=== PATIENT | female | born 1970 | race Caucasian/White ===

== ENCOUNTER → 2020-12-08 14:24 | Outpatient (CLI) | payer BC, SELFPAY ==
--- NOTE | ~2020-12-08 | XR_ITS ---
EXAMINATION: XR knee RT min 4V DATE: 12/09/2020 08:38 INDICATION: Right knee pain. TECHNIQUE: 4 views of right knee standing were obtained. COMPARISON: None. FINDINGS: There is varus angulation at the knee. No fracture. There is moderate osteoarthritis of med ial and patellofemoral compartments and mild osteoarthritis of lateral compartment. There is chondroc alcinosis of the menisci. No knee joint effusion. IMPRESSION: 1. Moderate right knee osteoarthritis. Reviewed, dictated and finalized at location A.
--- NOTE | ~2020-12-08 | XR_ITS ---
EXAMINATION: XR knee LT min 4V DATE: 12/09/2020 08:38 INDICATION: Left knee pain. TECHNIQUE: 4 views of left knee standing were obtained. COMPARISON: Left knee radiographs 09/01/2008 FINDINGS: There is varus angulation at the knee. No fracture. There is moderate osteoarthritis of med ial and patellofemoral compartments and mild osteoarthritis of lateral compartment. There is a small knee joint effusion. IMPRESSION: 1. Moderate left knee osteoarthritis. 2. Small left knee joint effusion. Reviewed, dictated and finalized at location A.
== END ==
PROVIDERS: PCP Physician Assistant; Visit Provider Physician Assistant
DX: M17.0 Bilateral primary osteoarthritis of knee (principal); M25.462 Effusion, left knee
CPT/HCPCS: 73564

== ENCOUNTER 2023-10-24 15:35 | Outpatient (CLI) | payer BC, SELFPAY ==
--- NOTE | 2023-10-24 15:30 | ECG_ITS ---
[facility] [address] Test Date: 2023-10-24 Pat Name: Mervat Cedeno Department: Room: Gender: F Network Analyst: Kumar : 1970 Requested By: Carlos Alberto Catrer Order Number: [id number] Nancy MD: Dexter Pack D.O. Measurements Intervals [place] Rate: 74 P: 23 GA: 160 QRS: 58 QRSD: 86 T: 31 QT: 399 QTc: 444 Interpretive Statements SINUS RHYTHM MINIMAL Q WAVES- INFERIOR LEADS MODERATE ST DEPRESSION [0.05+ mV ST DEPRESSION] BORDELRINE ECG No previous ECG available for comparison Electronically Signed On 10-25-2023 08:55:05 CDT by Dexter Pack D.O.
[2023-10-24 16:13] LABS: Anion Gap 4 mmol/L (4-12); Blood Urea Nitrogen 19 mg/dL (7-17); Calcium 9.8 mg/dL (8.4-10.2); Carbon Dioxide 35 mmol/L (22-30); Chloride 101 mmol/L (98-107); Estimated Glomerular Filt Rate > 60; Glucose 104 mg/dL (65-110); Potassium 3.1 mmol/L (3.4-5.0); Sodium 140 mmol/L (137-145)
== END 2023-10-24 15:36 | disposition home or self-care (01) ==
PROVIDERS: Anesthesiology; PCP Family Medicine; Visit Provider Obstetrics & Gynecology
DX: Z01.818 Encounter for other preprocedural examination (principal); I10 Essential (primary) hypertension; N95.0 Postmenopausal bleeding; T50.2X5A Adverse effect of carbonic-anhydrase inhibitors, benzothiadiazides and other diuretics, initial encounter
CPT/HCPCS: 36415; 80048; 86850; 86900; 86901; 93005

== ENCOUNTER 2023-10-26 01:30 | Day surgery (SDC) | payer BC, SELFPAY ==
[2023-10-18 14:41] VITALS: BMI 40.7
--- NOTE | 2023-10-18 14:49 | PC.NURSE ---
Report to the Outpatient Waiting Room, entrance under the green pavilion located off [facility], at time 07:30am on date 10-26-23. Planned Procedure Time: 09:30am. Time changes happen often and if your time is changed the preop area will call you the afternoon before. - You and your visitor will be asked to self-screen and do not enter if you have any COVID symptoms. - A mask is optional within the hospital at this time. Patients may have clear liquids (water, carbonated beverages, clear teas, apple juice) until 3 hours prior to surgery (06:30am) with a maximum of 20 ounces. - No food from midnight until time of surgery Take the following medications with a SIP of water the morning of surgery: levothyroxine, paroxetine DO NOT STOP ANY OF YOUR OTHER PRESCRIPTION MEDICATIONS PRIOR TO SURGERY ?EXCEPT THE FOLLOWING Medications to discontinue per physician vitamin Date to take last dose 10-22-23 Please no make-up, nail uzbek, hairspray, perfume, deodorant, or body powder the day of surgery. No jewelry (including any body piercings) or valuables the day of surgery, leave them at home. Please take a shower or bath the night before, or the morning of, surgery with an antibacterial soap. Wear comfortable, loose fitting clothing. - Jewelry must be removed prior to entering the operating room. Rings and piercings that are not removed may be cut off. - The hospital will not accept responsibility for valuables. - Please leave all valuables, including medications, at home the day of surgery. If you are going home after surgery, a licensed vending route driver must drive you home. - NO public transportation without another adult if you receive anesthesia. - We recommend that an adult stay with you for 24 hours following discharge. - We also recommend that you do not drive, make important decision, drink alcoholic beverages, or take any drugs that were not prescribed by your health care provider for at least 24 hours after your discharge time. Follow any additional instructions given to you from your surgeon. If you or anyone in your household have experienced Covid symptoms in the past week, please notify your surgeon or the nurse liaison at the phone number below for possible testing. Telephone instructions given to PATIENT and asked if any additional questions and then verbalized understanding. Patient advised to call surgeon office or pre surgery nurse liaison [phone] if any additional questions.
[2023-10-26] VITALS (15 sets, daily range): BP systolic 101–152; BP diastolic 64–85; PULSE 66–91; RESP 10–18; TEMP 36.4–37.2; O2SAT 93–99
--- NOTE | 2023-10-26 07:49 | WPDANESEPPF ---
Anes - Initial Pre Proc Eval Procedure: Operation Date: 10/26/23 09:30 Proposed Procedures p Laparoscopic Total Hysterectomy with Bilateral Salpingo-oophorectomy - North Viera MD Date/Time: 10/26/23 07:49 Surgeon: North Viera MD Pre Op Diagnosis: Post Menopausal Bleeding Patient Data Age: 53 Gender: F Height: 1.7 m Weight: 116.3 kg Allergies Allergy/AdvReac Type Severity Reaction Status Date / Time No Known Allergies Allergy Unknown Verified 10/26/23 07:46 Home Medications Medication Instructions Recorded Confirmed Type chlorthalidone 25 mg tablet 25 mg PO DAILY #90 tabs 06/20/23 10/26/23 Rx losartan 50 mg tablet 50 mg PO DAILY #30 tabs 06/20/23 10/26/23 Rx levothyroxine 125 mcg tablet See Rx Instructions .Route 10/10/23 10/26/23 Rx .COMPLEX #90 tabs paroxetine HCl 10 mg tablet See Rx Instructions .Route 10/15/23 10/26/23 Rx .COMPLEX #90 tabs multivit with minerals-iron 18 1 tablet PO DAILY 10/18/23 10/26/23 History mg-folic ac 400 mcg-vit K 25 mcg tablet (Adults Multivitamin) celecoxib 200 mg capsule See Rx Instructions .Route 10/25/23 Rx .COMPLEX #90 caps Patient hx anesthesia problems: none Family hx anesthesia problems: none Results Review: All pre-operative results and documents have been reviewed as part of the pre-operative evaluation. [facility] Past Medical History Medical History Depression Graves' disease in remission reactive iodine treatment 1992 Hypertension Hypothyroidism Osteoarthritis Surgical History Surgical History History of cholecystectomy 11/2017 History of laparoscopy 2002 Family History Family History Mother Breast cancer Endometrial cancer Father Heart disease Bladder cancer Grandparent Acute myocardial infarction Diabetes mellitus Heart disease Social History Social History Smoking status: Never smoker Second hand tobacco smoke exposure: No Alcohol intake: never Substance use: never Substance use type: does not use Do You Feel Safe in your Home?: Yes Lack of Transportation: No Lack of Food: Never True Current Housing: I Have Housing Concerned About Future Housing: No Difficulty Paying Gas/Electric Bills: No Difficulty Paying for Meds: No Currently Unemployed: No Education: Master's Degree or Higher Difficulty w/ Childcare or Family Care: No Living arrangements: with family Occupation/Education: occupation Gender identity (if verbalized by the patient): Female Sexual Orientation (if Verbalized by the Patient): Straight or Heterosexual Spiritual care concerns: No Anes - Eval Final PreProcedure Day of Procedure 10/26/23 07:49 Patient weight: morbidly obese Heart: regular rate and rhythm Lungs: clear to auscultation Airway: Mallampati scale class II Neurological: alert and oriented Last oral intake: >/= 8 hours ASA classification: III Emergent: no Anesthetic plan: proceed Anesthesia type and monitoring: general ETT and standard monitoring Results Review: All pre-operative results and documents have been reviewed as part of the pre-operative evaluation. Informed Consent: The patient's anesthetic plan and its attendant risks and benefits were discussed with the patient/family/POA. Questions were solicited and answers provided to the satisfaction of the patient/family/POA.
[2023-10-26] MEDS: KETOROLAC 15 MG/ML VIAL (*BKC) IV PUSH (08:02)
[2023-10-26] MEDS: ACETAMINOPHEN 500 MG TABLET 1000 MG PO (08:02)
[2023-10-26] MEDS: LACTATED RINGERS 1,000 ML 30 ML IV CONT ×2 (08:05→12:40)
--- NOTE | 2023-10-26 09:41 | PM.IMHP ---
H&P: HPI History of Present Illness Date/Time: 10/26/23 09:41 Chief Complaint: Postmenopausal bleeding Narrative: Patient is a 53 year old female with postmenopausal bleeding and R ovarian cyst who presents for total laparoscopic hysterectomy and bilateral salpingo-oopherectomy. She has had two episodes of postmenopausal bleeding with normal EMB. Active surveillance vs surgical management discussed with patient, who desires to proceed with TLH BSO. R/b/a of procedure discussed. She was also found to have a stalbe R ovarian cyst that will be removed at time of surgery. Denies abdominal pain, chest pain, nausea or vomiting. Review of Systems Review of Systems: All systems reviewed & are unremarkable except as noted in HPI and below PMFSH Past Medical History Medical History Depression Graves' disease in remission reactive iodine treatment 1992 Hypertension Hypothyroidism Osteoarthritis Surgical History Surgical History History of cholecystectomy 11/2017 History of laparoscopy 2002 Family History Family History Mother Breast cancer Endometrial cancer Father Heart disease Bladder cancer Grandparent Acute myocardial infarction Diabetes mellitus Heart disease Social History Social History Smoking status: Never smoker Second hand tobacco smoke exposure: No Alcohol intake: never Substance use: never Substance use type: does not use Do You Feel Safe in your Home?: Yes Lack of Transportation: No Lack of Food: Never True Current Housing: I Have Housing Concerned About Future Housing: No Difficulty Paying Gas/Electric Bills: No Difficulty Paying for Meds: No Currently Unemployed: No Education: Master's Degree or Higher Difficulty w/ Childcare or Family Care: No Living arrangements: with family Occupation/Education: occupation Gender identity (if verbalized by the patient): Female Sexual Orientation (if Verbalized by the Patient): Straight or Heterosexual Spiritual care concerns: No Meds Home Medications and Allergies Home Medications Medication Instructions Recorded Confirmed Type chlorthalidone 25 mg tablet 25 mg PO DAILY #90 tabs 06/20/23 10/26/23 Rx losartan 50 mg tablet 50 mg PO DAILY #30 tabs 06/20/23 10/26/23 Rx levothyroxine 125 mcg tablet See Rx Instructions .Route 10/10/23 10/26/23 Rx .COMPLEX #90 tabs paroxetine HCl 10 mg tablet See Rx Instructions .Route 10/15/23 10/26/23 Rx .COMPLEX #90 tabs multivit with minerals-iron 18 1 tablet PO DAILY 10/18/23 10/26/23 History mg-folic ac 400 mcg-vit K 25 mcg tablet (Adults Multivitamin) celecoxib 200 mg capsule See Rx Instructions .Route 10/25/23 Rx .COMPLEX #90 caps Allergies Allergy/AdvReac Type Severity Reaction Status Date / Time No Known Allergies Allergy Unknown Verified 10/26/23 07:46 Vital Signs Vital Signs - 24 hr 10/26/23 07:49 Temperature 97.9 F Pulse Rate 85 Respiratory Rate 18 Blood Pressure 152/85 H Pulse Oximetry 96 Oxygen Delivery Room Air Assessment and Plan Assessment and plan (1) Postmenopausal bleeding: Code(s): N95.0 - Postmenopausal bleeding Status: Acute Assessment and Plan: ?EMC 5mm, unchanged from prior exam - 1 episode of bleeding after 1 year of amenorrhea, then additional episode in 06/2023 - EMB wnl in 04/2023 - discussed repeat sampling due to additional bleeding episode, however patient desires hysterectomy due to family hx of endometrial and ovarian cancer - r/b/a of laparoscopic hysterectomy discussed with patient. she desires to move forward with surgery (2) Ovarian cyst: Code(s): N83.209 - Unspecified ovarian cyst, unspecified side Status: Acute Assessment and Plan: - 7-8cm anechoic cy
--- NOTE | 2023-10-26 09:44 | WPDHPUPDATE1 ---
History and Physical Update Update Date/Time: 10/26/23 09:44 History and Physical has been reviewed, including an updated exam of the patient. There are NO changes in the patient's condition. Risks, benefits, and alternatives have been discussed and questions answered. Patient agrees to proceed with procedure.
[2023-10-26] MEDS: ceFAZolin 2 GM/D5W 50 ML 2 GM/50 ML BAG IVPB (09:50)
[2023-10-26] MEDS: BUPIVACAINE/EPINEPHRINE 0.5% 50 ML VIAL 30 ML INFILTRATE (10:56)
--- NOTE | 2023-10-26 12:29 | W.PM.PROC2 ---
Procedure Note - Detailed Date of Procedure 10/26/23 Pre-op Diagnosis Post Menopausal Bleeding Post-op Diagnosis Same Procedure Performed Total laparoscopic hysterectomy with bilateral salpingoopherectomy and cystoscopy Surgeon North Viera MD Anesthesia General and Local Indications postmenopausal bleeding and right ovarian cyst Findings 6 week sized uterus; normal appearing left ovary, 9cm right ovarian cyst; normal appearing fallopian tubes; normal appearing appendix Description of Procedure The patient was taken to the operating room with IV fluids infusing and placed in dorsal supine position. She was given general anesthesia by the anesthesiologist without difficulty. She was then repositioned in the dorsal lithotomy position and prepped and draped in the usual sterile manner. A Martinez catheter was placed in the patient's bladder. The Steffany uterine manipulator was place in the cervix and the vaginal balloon was insufflated. Legs were returned to physiologic position. An oral gastric tube was placed in the stomach to suction any contents. A small incision was made in the abdomen in the mid clavicular line below the left costal margin. A 5mm trocar was placed into Way's point under direct vision. Intraabdominal placement was confirmed with an opening pressure of 6mm. After adequate visualization two 5 mm ports were placed lateral to the inferior epigastic vessels on the left. The [place] Ligasure was used throughout the case. After evaluating the pathology the hysterectomy was begun by coagulating and cutting the uteroovarian pedicles and the round ligaments. The bladder flap was created the bladder from the lower uterine segment.The uterine vessels were skeletonized bilaterally,coagulated and then cut. The Ligasure L hook was used to create the colpotomy anteriorly and continued around the circumference of the cervix. The uterus was delivered vaginally. The bilateral ureters were visualized peristalsing on the pelvic sidewall. The left IP ligament was coagulated and cauterized. The ovary and fallopian tube on the left side were detached from the mesosalpinx and delivered vaginally. The right IP was grasped and in a similar way, the right ovary, tube and ovarian cyst were detached. A specimen bag was delivered into the abdomen from the vaginal and the right adnexa was removed in the bag without spillage of the cyst. The pedicles were noted to be hemostatic. A small disruption of the peritoneum under the sigmoid colon was noted, likely occurring during the delivery of the enlarged ovary; the bed was noted to be hemostatic. After adequate hemostasis the vaginal cuff was closed with V-loc suture in a running fashion. Surgicell powder was placed under the sigmoid and along the vaginal cuff. Methylene blue dye was injected intravenously, cystoscopy was performed. Both ureters showed normal flow and there was no damage to the bladder. The abdominal cavity was lavaged with normal saline; there was no active bleeding. Instruments were removed under direct vision and as much CO2 was removed as possible. The abdomen was washed and the incision sites were closed with 4-0 Biosyn and injected with Marcaine. The incisions were covered with skin glue. Patient tolerated the procedure well. Sponge, lap, needle, and instrument counts were correct. Patient was awakened and taken to the PACU in stable condition by the anesthesiologist.
--- NOTE | 2023-10-26 14:51 | ADMGEN ---
1437-This patient, Mervat Cedeno, was admitted to -. Patient/family oriented to hospital policies and general routines including ID bracelet, bed and alarms, visiting hours, pain management, procedures, bathroom and other care routines, personal items, smoking policy, room service/diet, and visiting hours. Information on how to activate the Rapid Response Team has been discussed. Patient/Family are encouraged to report perceived risks to care and to ask questions if they do not understand what they are told or what they should do.
[2023-10-26] MEDS: LACTATED RINGERS 1,000 ML 100 ML IV CONT (15:11)
[2023-10-26] MEDS: IBUPROFEN IV 800 MG/200 ML 800 MG/200 ML BAG 400 MG IVPB (15:11)
[2023-10-26] MEDS: HYDROcodone/acetaminophen (*CRX) 5-325 MG TABLET 1 TAB PO (18:53)
[2023-10-26] MEDS: SENNA/DOCUSATE SODIUM TABLET 2 TAB PO (20:24)
[2023-10-26] MEDS: HYDROmorphone HCL INJ (*CRX) 1 MG/ML SYR IV PUSH (20:25)
[2023-10-27 05:18] LABS: Hematocrit 37.5 % (37.0-47.0); Hemoglobin 12.8 g/dL (12.0-15.0); Mean Corpuscular HGB Conc 34.1 g/dl (32-36); Mean Corpuscular Hemoglobin 33.6 pg (26-34); Mean Corpuscular Volume 98.4 fl (80-100); Mean Platelet Volume 11.3 fl (7.4-10.4); Platelet Count Result 181 k/mm3 (150-375); Red Blood Count 3.81 M/mm3 (4.2-5.4); Red Cell Distribution Width 12.3 % (11.5-14.5); White Blood Count 11.2 K/mm3 (4.5-10.0)
[2023-10-27 05:30] LABS: Anion Gap 4 mmol/L (4-12); Blood Urea Nitrogen 17 mg/dL (7-17); Calcium 9.2 mg/dL (8.4-10.2); Carbon Dioxide 31 mmol/L (22-30); Chloride 100 mmol/L (98-107); Estimated CRCL calculation 107 ml/min; Estimated Glomerular Filt Rate > 60; Glucose 120 mg/dL (65-110); Potassium 3.3 mmol/L (3.4-5.0); Sodium 135 mmol/L (137-145)
[2023-10-27 07:00] VITALS: BP 104/63; PULSE 74; RESP 16; TEMP 36.7; O2SAT 96
[2023-10-27] MEDS: LEVOTHYROXINE SODIUM 125 MCG TABLET PO (07:02)
[2023-10-27] MEDS: ENOXAPARIN 40 MG/0.4 ML SYRINGE SUB-Q (07:03)
[2023-10-27] MEDS: ACETAMINOPHEN 500 MG TABLET 1000 MG PO (07:03)
--- NOTE | 2023-10-27 07:49 | WPDANESPN ---
Anes - Prog Note Post-Op Date/Time: 10/27/23 07:49 Cardiovascular status: normal Respiratory status: normal Airway patency: baseline Mental status: baseline Post-Op hydration status: normal Vital Signs: Last Vital Signs Temp 36.7 C 10/27/23 07:00 Pulse 74 10/27/23 07:00 Resp 16 10/27/23 07:00 BP 104/63 10/27/23 07:00 Pulse Ox 96 10/27/23 07:00 O2 Del Method Nasal Cannula 10/26/23 16:37 O2 Flow Rate 1 10/26/23 16:37 Pain Score (VAS): 08/04 I/O: Intake & Output 10/26/23 10/26/23 10/27/23 15:59 23:59 07:59 Intake Total 250 300 Output Total 250 Balance 250 50 Laboratory Tests 10/27/23 03:46 10/27/23 03:46 10/27/23 03:46 WBC 11.2 H RBC 3.81 L Hgb 12.8 Hct 37.5 MCV 98.4 MCH 33.6 MCHC 34.1 RDW 12.3 Plt Count 181 MPV 11.3 H Sodium 135 L Potassium 3.3 L Chloride 100 Carbon Dioxide 31 H Anion Gap 4 BUN 17 Creatinine 0.70 Estim Creat Clear Calc 107 Estimated GFR > 60 Glucose 120 H Calcium 9.2 Post-procedural complaints: none Patient Feedback: Patient satisfied with anesthetic care.
== END 2023-10-27 09:32 | disposition home or self-care (01) ==
LOC: ANHSURGERY 07:29 → ANHOB2 16:37
PROVIDERS: PCP Family Medicine; Visit Provider Obstetrics & Gynecology
PROC: 0UT9FZZ Resection of Uterus, Via Natural or Artificial Opening With Percutaneous Endoscopic Assistance (ICD-10-PCS; CPT 58573; principal; 2023-10-26 09:30)
DX: D27.0 Benign neoplasm of right ovary (principal); D25.9 Leiomyoma of uterus, unspecified; N95.0 Postmenopausal bleeding; N83.8 Other noninflammatory disorders of ovary, fallopian tube and broad ligament; N85.8 Other specified noninflammatory disorders of uterus; E89.0 Postprocedural hypothyroidism; I10 Essential (primary) hypertension; F32.A Depression, unspecified; E66.01 Morbid (severe) obesity due to excess calories; Z68.41 Body mass index [BMI] 40.0-44.9, adult
CPT/HCPCS: 58573; 36415; 80048; 85027; 86850; 86900; 86901; 88307; 93005; 99199; A9270; J0690; J1100; J1170; J1200; J1650; J1741; J1885; J2250; J2405; J2704; J3010; J7030; J7120; Q9968

== ENCOUNTER 2024-12-11 01:07 | Day surgery (SDC) | payer BC, SELFPAY ==
[2024-11-24 14:30] VITALS: BMI 36.0
--- OUTSIDE RECORDS SUMMARY | 2024-12-11 01:10 | XMS_ITS | Encounter Summary ---
Author Organization [facility] Address [address] [place] [address] Care Team Providers Care Storage Receipt Poster Name Role Phone [facility], [facility] Primary Care Provider Ele contreras Encounter Details Date Type Department Care Team (Late st Contact Info) Description 08/26/2004 Outpatient Historical [facility] [place] [address] [place] [address] [place] [address] [place] [address] Social History Tobacco Use Types Packs/Day Years Used Date Smoking Tobacco: Never Assessed Comments Unknown Sex and Gender Information Value Date Recorded Sex Assigned at Not on file Legal Sex Female 5:25 AM RIVETER HAND Gender Identity Not on file Sexual Orientation Not on file documented as of this encounter Plan of Treatment Not on file documented as of this encounter Visit Diagnoses Not on filedocumented in this encounter Care Teams Storage Receipt Poster Relationship Specialty Start Date End Date [facility], [place] [address] PCP - General 08/09/10 documented as of this encounter
--- OUTSIDE RECORDS SUMMARY | 2024-12-11 01:10 | XMS_ITS | Encounter Summary ---
Author Organization [facility] Address [address] [place] [address] Care Team Providers Care Vice President Of Engineering Name Role Phone [facility] Primary Care Provider Ele contreras Encounter Details Date Type Department Care Team (Late st Contact Info) Description 08/02/2004 Outpatient Historical [facility] [place] [address] [place] [address] [place] 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 [place] [address] PCP - General 08/09/10 documented as of this encounter
--- OUTSIDE RECORDS SUMMARY | 2024-12-11 01:10 | XMS_ITS | Encounter Summary ---
Author Organization [facility] Address [address] [place] [address] Care Team Providers Care Care Program Director Name Role Phone [facility] Primary Care Provider Ele contreras Encounter Details Date Type Department Care Team (Late st Contact Info) Description 07/26/2004 Outpatient Historical [facility] [place] [address] [place] [address] [place] 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
--- OUTSIDE RECORDS SUMMARY | 2024-12-11 01:10 | XMS_ITS | Encounter Summary ---
Author Organization [employer] Address [address] [place] [address] Care Team Providers Care Retail Loss Prevention Investigator Name Role Phone [facility], External Provider Primary Care Provider Ele contreras Encounter Details Date Type Department Care Team (Latest Contact Info) Description 08/19/2004 Outpatient Historical [facility] [address] [place] [address] 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 ADVISER Gender Identity Not on file Sexual Orientation Not on file documented as of this encounter Plan of Treatment Not on file documented as of this encounter Procedures Procedure Name Priority Date/Time Associated Diagnosis Comments PROGESTERONE Routine 08/19/2004 11:15 AM FARM ADVISER documented in this encounter Results * PROGESTERONE (08/19/2004 11:15 AM FARM ADVISER) PROGESTERONE 30.8 ng/mL [facility] CE SYSTEM Comment: Progesterone Reference Range: Female: Normally Menstruating Female Follicular Phase 0.2 - 1.5 ng/mL Ovulation Phase 0.8 - 3.0 ng/mL Luteal Phase 1.7 - 27.0 ng/mL Postmenopausal 0.1 - 0.8 ng/mL No Pediatric Reference Range Available. 08/19/2004 11:1 5 AM FARM ADVISER us Jarek Nunez MD CHEMISTRY ORDERABLES Final Resu lt INTERFACE SYSTEM Refer to clinic/hospital department documented in this encounter Visit Diagnoses Diagnosis Threatened , unspecified as to episode of care- Primary documented in this encounter Care Teams Retail Loss Prevention Investigator Relationship Specialty Start Date End Date [facility], External Provider [address] [place] [address] PCP - General 08/09/10 documented as of this encounter
--- OUTSIDE RECORDS SUMMARY | 2024-12-11 01:10 | XMS_ITS | Encounter Summary ---
Author Organization [facility] Address [address] [place] [address] Care Team Providers Care Field Mechanic/Site Lead Name Role Phone [facility] Primary Care Provider Ele contreras Encounter Details Date Type Department Care Team (Late st Contact Info) Description 08/23/2004 Outpatient Historical [facility] [place] [address] [place] [address] [place] 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
--- OUTSIDE RECORDS SUMMARY | 2024-12-11 01:10 | XMS_ITS | Encounter Summary ---
Author Organization [facility] Address [address] [place] [address] Care Team Providers Care Tobacco Dipper Name Role Phone [facility], [facility] Provider Primary Care Provider Ele contreras Encounter Details Date Type Department Care Team (Late st Contact Info) Description 07/05/[address] [facility] [place] [address] [place] [address] [place] 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
--- OUTSIDE RECORDS SUMMARY | 2024-12-11 01:10 | XMS_ITS | Encounter Summary ---
Author Organization [facility] Address [address] [place] [address] Care Team Providers Care Aerospace Manager Name Role Phone [facility], External Provider Primary Care Provider Ele contreras Encounter Details Date Type Department Care Team (Latest Contact Info) Description 03/13/2006 Outpatient Historical [facility] [place] [address] [place] [address] [place] 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 Reference Range: Gestational Age: 3 Weeks 5.8 - 71.2 mIU/mL 4 Weeks 9.5 - 750 mIU/mL 5 Weeks 217 - 7138 mIU/mL 6 Weeks 158 - 31,795 mIU/mL 7 Weeks 3697 - 163,563 mIU/mL 8 Weeks 32,065 - 149,571 mIU/mL 9 Weeks 63,803 - 151,410 mIU/mL 10 Weeks 46,509 - 186,977 mIU/mL 12 Weeks 27,832 - 210,612 mIU/mL 14 Weeks 13,950 - 62,530 mIU/mL 15 Weeks 12,039 - 70,971 mIU/mL 16 Weeks 9040 - 56,451 mIU/mL 17 Weeks 8175 - 55,868 mIU/mL 18 Weeks 8099 - 58,176 mIU/mL Heterophile antibodies and other interfering substances in the serum of some patients may cause a false-positive result in this assay. Before making a diagnosis of malignancy or etopic ,the result of this test should be confirmed with a urine HCG test and correlated with other clinical evidence. 03/13/2006 2:02 PM CDT us Jarek Nunez MD CHEMISTRY ORDERABLES Final Resu lt INTERFACE SYSTEM Refer to clinic/hospital department documented in this encounter Visit Diagnoses Diagnosis Threatened , antepartum- Primary documented in this encounter Care Teams Aerospace Manager Relationship Specialty Start Date End Date [facility], External Provider [address] [place] [address] PCP - General 08/09/10 documented as of this encounter
--- OUTSIDE RECORDS SUMMARY | 2024-12-11 01:10 | XMS_ITS | Encounter Summary ---
Author Organization [facility] Address [address] [place] [address] Care Team Providers Care Sawyer Cork Slabs Name Role Phone [facility], [facility] Provider Primary Care Provider Ele contreras Encounter Details Date Type Department Care Team (Late st Contact Info) Description 08/09/2004 Outpatient Historical [facility] [place] [address] [place] [address] [place] [address] 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
--- OUTSIDE RECORDS SUMMARY | 2024-12-11 01:10 | XMS_ITS | Encounter Summary ---
Author Organization [facility] Address [address] [place] [address] Care Team Providers Care Show Jumping Instructor Name Role Phone [facility], [facility] Provider Primary Care Provider Ele contreras Encounter Details Date Type Department Care Team (Late st Contact Info) Description 08/19/2004 Outpatient Historical [facility] [place] [address] [place] [address] [place] 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
--- OUTSIDE RECORDS SUMMARY | 2024-12-11 01:10 | XMS_ITS | Encounter Summary ---
Author Organization [facility] Address [address] [place] [address] Care Team Providers Care Review Rn Name Role Phone [facility], External Provider Primary Care Provider Ele contreras Encounter Details Date Type Department Care Team (Late st Contact Info) Description 08/12/2004 Outpatient Historical [facility] Family [place] [address] [place] [address] [place] [address] [place] [address] Social History Tobacco Use Types Packs/Day Years Used Date Smoking Tobacco: Never Assessed Comments Unknown Sex and Gender Information Value Date Recorded Sex Assigned at Not on file Legal Sex Female 5:25 AM TEST MAN Gender Identity Not on file Sexual Orientation Not on file documented as of this encounter Plan of Treatment Not on file documented as of this encounter Visit Diagnoses Not on filedocumented in this encounter Care Teams Review Rn Relationship Specialty Start Date End Date [facility] [address] PCP - General 08/09/10 documented as of this encounter
--- OUTSIDE RECORDS SUMMARY | 2024-12-11 01:10 | XMS_ITS | Encounter Summary ---
Author Organization [facility] Address [address] [place] [address] Care Team Providers Care Spot Worker Name Role Phone [facility], [facility] Primary Care Provider Ele contreras Encounter Details Date Type Department Care Team (Late st Contact Info) Description 07/01/2004 Outpatient Historical [facility] [place] [address] [place] [address] [place] [address] [place] [address] Social History Tobacco Use Types Packs/Day Years Used Date Smoking Tobacco: Never Assessed Comments Unknown Sex and Gender Information Value Date Recorded Sex Assigned at Not on file Legal Sex Female 5:25 AM LICENSED NURSING ASSISTANT Gender Identity Not on file Sexual Orientation Not on file documented as of this encounter Plan of Treatment Not on file documented as of this encounter Visit Diagnoses Not on filedocumented in this encounter Care Teams Spot Worker Relationship Specialty Start Date End Date [facility], [place] [address] PCP - General 08/09/10 documented as of this encounter
--- OUTSIDE RECORDS SUMMARY | 2024-12-11 01:10 | XMS_ITS | Encounter Summary ---
Author Organization [facility] Address [address] [place] [address] Care Team Providers Care Care Transitions Nurse Name Role Phone [facility], [facility] Provider Primary Care Provider Ele contreras Encounter Details Date Type Department Care Team (Late st Contact Info) Description 07/27/2006 Outpatient Historical [facility] [place] [address] [place] [address] [place] 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
--- OUTSIDE RECORDS SUMMARY | 2024-12-11 01:10 | XMS_ITS | Encounter Summary ---
Author Organization [facility] Address [address] [place] [address] Care Team Providers Care Foundry Process Engineer Name Role Phone [facility], [facility] Provider Primary Care Provider Ele contreras Encounter Details Date Type Department Care Team (Late st Contact Info) Description 08/09/2004 Outpatient Historical [facility] [place] [address] [place] [address] [place] 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
--- OUTSIDE RECORDS SUMMARY | 2024-12-11 01:10 | XMS_ITS | Encounter Summary ---
Author Organization [facility] Address [address] [place] [address] Care Team Providers Care Cake Tester Name Role Phone [facility], [facility] Provider Primary Care Provider Ele contreras Encounter Details Date Type Department Care Team (Late st Contact Info) Description 08/05/2004 Outpatient Historical [facility] [place] [address] [place] [address] [place] [address] [place] [address] Social History Tobacco Use Types Packs/Day Years Used Date Smoking Tobacco: Never Assessed Comments Unknown Sex and Gender Information Value Date Recorded Sex Assigned at Not on file Legal Sex Female 5:25 AM ADMINISTRATION ASSISTANT Gender Identity Not on file Sexual Orientation Not on file documented as of this encounter Plan of Treatment Not on file documented as of this encounter Visit Diagnoses Not on filedocumented in this encounter Care Teams Cake Tester Relationship Specialty Start Date End Date [facility], [place] [address] PCP - General 08/09/10 documented as of this encounter
--- OUTSIDE RECORDS SUMMARY | 2024-12-11 01:10 | XMS_ITS | Continuity of Care Document ---
Author Organization [facility] Address [address] [place] [address] [address] [place] [address] Phone Care Team Providers Care Clinical Sciences Professor Name Role Phone Darius PLASCENCIA, Akash Unavailable Unavaila ble Allergies, Adverse Reactions, Alerts Substance Reaction Status Criticality No Known allergies Medications Medication Instructions Dosage Effective Dates (start - stop) Status Comments Restasis 0.05 % eye drops in a dropperette instill 1 drop by ophthalmic route every 12 hours into affected eye(s) 1.00 drop - Active levothyroxine 125 mcg capsule take 1 capsule (125MCG) by oral route every day 125 MCG - Active Restasis 0.05 % eye drops in a dropperette instill 1 drop by ophthalmic route every 12 hours into affected eye(s) 1.00 drop - No Longer Active Procedures Procedure Date OFFICE/OUTPATIENT VISIT, EST OFFICE/OUTPATIENT VISIT, [facility] Advance Directives Directive Yes / No Effective Date File Name No Information Encounters Encounter Description Practice Location Reason(s) For Visit Diagnoses Date Provider Providers Copied on Encounter OFFICE/OUTPA TIENT VISIT, EST [facility], [address], [place], [place], [id number], [place] tel:[phone] [facility] Office Peripheral opacity of corneaTear film insufficiency, unspecifiedPer ipheral opacity of corneaTear film insufficiency, unspecified 4 Darius Bustos. [address] [facility] [address] [facility] [address], [address], [place], [place], [id number], [place]. tel:[phone] Referring Provider: Akash lopez, [address], [place], [address] . tel:[phone] OFFICE/OUTPA TIENT VISIT, [facility], [address], [place], [place], [id number], [place] tel:[phone] [facility] Office Peripheral opacity of corneaTear film insufficiency, unspecified 4 Darius Bustos. [address], [address], [place], [place], [id number], [place]. tel:[phone] Referring Provider: Akash lopez [address], [place], [address] . tel:[phone] Family History Family Member Type Diagnosis Age At Onset No Information Payers Payer name Insurance type Covered alliance party ID Authoriza timerly(s) [facility] [id number] Social History Type Description Quantity Date Captured Comments Alcohol Use Details Unknown Caffeine Use Details Unknown Tobacco Use Status No Information Smoking Status Never smoker Non-Smoking Tobacco Use Details : No Details Available : No Details Available Sex Female Chief Complaint And Reason For Visit No Information Reason For Referral Reason For Referral No Information History Of Present Illness Encounter Date Complaint History Of Prese nt Illness No Information Functional Status Date Functional Assessmen t No Information Instructions Date Instruction Additional Infor mation Tear film insufficie ncy, 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 Explained condition does not have a cure and will need artificial tears for maintenance. 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 Recommended pt stay out of CL as long as possible-cont gtts then f/u with Dr. Matos. Discussed diagnosis in detail with patient. Discussed treatment options with patient. Discussed with pt about trying Dailies as another option. 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 - Discussed diagnosis in detail with patient. Discussed treatment options with patient. Pt instructed to discontinue CL wear at this time. Recommend preservative-free artificial tears 6-8x/day OU. Patient instructed to call if condition gets worse before follow up appt in 1 month. Discussed possibility of CL intolerance and discontinuation. 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 Discussed treatment options with patient. Recommend using PFATS every couple of hours while awake. Gave samples of Refresh Optive today. Continue using Restasis bid OU. Will continue to observe condition and or symptoms. Related to Tear film insufficiency, unspecified Assessments Type Assessment Date No Information Patient Care Teams Name Effective Dates (start - stop) Status Members No Information
--- OUTSIDE RECORDS SUMMARY | 2024-12-11 01:10 | XMS_ITS | Encounter Summary ---
Author Organization [facility] Address [address] [place] [address] Care Team Providers Care Pyrotechnic Mixer Name Role Phone [facility], External Provider Primary Care Provider Ele contreras Encounter Details Date Type Department Care Team (Late st Contact Info) Description 08/16/2004 Outpatient Historical [facility] [place] [address] [place] [address] [place] [address] 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
--- OUTSIDE RECORDS SUMMARY | 2024-12-11 01:10 | XMS_ITS | Encounter Summary ---
Author Organization [facility] Address [address] [place] [address] Care Team Providers Care Negative Assembler Name Role Phone [facility] Primary Care Provider Ele contreras Encounter Details Date Type Department Care Team (Late st Contact Info) Description 07/08/2004 Outpatient Historical [facility] [place] [email or web address] [place] [address] [place] [address] 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 [place] [address] PCP - General 08/09/10 documented as of this encounter
--- OUTSIDE RECORDS SUMMARY | 2024-12-11 01:10 | XMS_ITS | Encounter Summary ---
Author Organization [facility] Address [address] [place] [address] Care Team Providers Care Video Camera Operator Name Role Phone [facility], [facility] Provider Primary Care Provider Ele contreras Encounter Details Date Type Department Care Team (Late st Contact Info) Description 07/08/2004 Outpatient Historical [facility] [place] [address] [place] [address] [place] [address] 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
--- OUTSIDE RECORDS SUMMARY | 2024-12-11 01:10 | XMS_ITS | Encounter Summary ---
Author Organization [facility] Address [address] [place] [address] Care Team Providers Care Linen Tech Name Role Phone [facility] Provider Primary Care Provider Ele contreras Encounter Details Date Type Department Care Team (Late st Contact Info) Description 04/25/2006 Outpatient Historical [facility] Family [place] [address] [place] [address] [place] [address] [place] [address] Social History Tobacco Use Types Packs/Day Years Used Date Smoking Tobacco: Never Assessed Comments Unknown Sex and Gender Information Value Date Recorded Sex Assigned at Not on file Legal Sex Female 5:25 AM CUSTOMER SERVICE REPRESENTATIVE Gender Identity Not on file Sexual Orientation Not on file documented as of this encounter Last Filed Vital Signs Vital Sign Reading Time Taken Comments Blood Pressure 120/84 04/25/2006 1:00 PM CUSTOMER SERVICE REPRESENTATIVE Pulse 80 04/25/2006 1:00 PM CUSTOMER SERVICE REPRESENTATIVE Temperature - - Respiratory Rate - - Oxygen Saturation - - Inhaled Oxygen Concentration - - Weight 97.3 kg (214 lb 8 oz) 04/25/2006 1:00 PM CUSTOMER SERVICE REPRESENTATIVE Height - - Body Mass Index 34.36 04/27/2004 10:30 AM CUSTOMER SERVICE REPRESENTATIVE documented in this encounter Plan of Treatment Not on file documented as of this encounter Visit Diagnoses Not on filedocumented in this encounter Care Teams Linen Tech Relationship Specialty Start Date End Date Demond, [place] [address] PCP - General 08/09/10 documented as of this encounter
--- OUTSIDE RECORDS SUMMARY | 2024-12-11 01:10 | XMS_ITS | Encounter Summary ---
Author Organization [facility] Address [address] [place] [address] Care Team Providers Care Delineator Name Role Phone [facility], External Provider Primary Care Provider Ele contreras Encounter Details Date Type Department Care Team (Late st Contact Info) Description 08/26/2004 Outpatient Historical [facility] [place] [address] [place] [address] [place] 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
--- OUTSIDE RECORDS SUMMARY | 2024-12-11 01:10 | XMS_ITS | Encounter Summary ---
Author Organization [facility] Address [address] [place] [address] Care Team Providers Care Rn Ent Name Role Phone [facility], External Provider Primary Care Provider Ele contreras Encounter Details Date Type Department Care Team (Late st Contact Info) Description 04/25/2006 Orders Only [facility] [place] [address] [place] [address] [place] [address] 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 Left Arm Sitting PULSE: 80. Left Radial, Regular WEIGHT: [id number]. ALLERGIES: No known drug allergies. CHIEF COMPLAINT follow up on miscarry. 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 MEDICATIONS: PROGESTERONE MICRONIZED POWDER, [address] Peak +3 to peak +14 q HS, 30 Dispensed, 2 Fills, status: NEW PRESCRIPTION, 04/25/2006. MUCINEX ORAL TABLET 12 HR 600 MG, 1 Two Times A Day from day after period through peak for mucus, status: NEW HISTORY, 04/25/2006. HCA VITAMIN B6 ORAL TABLET 100 MG, 200 mg BID from day after period through peak, status: NEW HISTORY, 04/25/2006. 634.92-SPONTANEOUS ASSESSMENT: physically and emotionally doing ok. TIME PHYSICIAN WITH PATIENT: TOTAL: 20 minutes. TIME PATIENT COUNSELED/CARE COORDINATED: 20 minutes. REGARDING: Counseling. Coordination of care. Treatment options. RETURN VISIT: Patient instructed to return in 3 months.WW exam and to review charts. Electronically Signed by: Jarek Nunez MD on Thursday, April 27, 2006 documented in this encounter Plan of Treatment Not on file documented as of this encounter Visit Diagnoses Not on filedocumented in this encounter Care Teams Rn Ent Relationship Specialty Start Date End Date [facility], External Provider [address] [place] [address] PCP - General 08/09/10 documented as of this encounter
--- OUTSIDE RECORDS SUMMARY | 2024-12-11 01:10 | XMS_ITS | Encounter Summary ---
Author Organization [facility] Address [address] [place] [address] Care Team Providers Care Personal Computer Specialist Name Role Phone [facility], External Provider Primary Care Provider Ele contreras Encounter Details Date Type Department Care Team (Late st Contact Info) Description 07/15/[address] [facility] [place] [address] [place] [address] [place] [address] 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 Gender Identity Not on file Sexual Orientation Not on file documented as of this encounter Last Filed Vital Signs Vital Sign Reading Time Taken Comments Blood Pressure 124/76 07/15/2004 9:00 AM MACHINE GUN MECHANIC Pulse - - Temperature - - Respiratory Rate - - Oxygen Saturation - - Inhaled Oxygen Concentration - - Weight 91.2 kg (201 lb) 07/15/2004 9:00 AM MACHINE GUN MECHANIC Height - - Body Mass Index 32.2 04/27/2004 10:30 AM MACHINE GUN MECHANIC documented in this encounter Plan of Treatment Not on file documented as of this encounter Visit Diagnoses Not on filedocumented in this encounter Care Teams Personal Computer Specialist Relationship Specialty Start Date End Date [facility], External Provider [address] [place] [place] [address] PCP - General 08/09/10 documented as of this encounter
--- OUTSIDE RECORDS SUMMARY | 2024-12-11 01:10 | XMS_ITS | Encounter Summary ---
Author Organization [facility] Address [address] [place] [address] Care Team Providers Care News Camera Person Name Role Phone [facility], [facility] Provider Primary Care Provider Ele contreras Encounter Details Date Type Department Care Team (Late st Contact Info) Description 08/23/2004 Outpatient Historical [facility] [place] [address] [address] [place] [address] [place] [address] 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
--- OUTSIDE RECORDS SUMMARY | 2024-12-11 01:10 | XMS_ITS | Encounter Summary ---
Author Organization [facility] Address [address] [place] [address] Care Team Providers Care Mycologist Name Role Phone [facility] Primary Care Provider Ele contreras Encounter Details Date Type Department Care Team (Late st Contact Info) Description 07/15/2004 Outpatient Historical [facility] [place] [address] [address] [place] [address] [place] [address] 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
--- OUTSIDE RECORDS SUMMARY | 2024-12-11 01:10 | XMS_ITS | Encounter Summary ---
Author Organization [facility] Address [address] [place] [address] Care Team Providers Care Biodiesel Production Associate Name Role Phone [facility] Primary Care Provider Ele contreras Encounter Details Date Type Department Care Team (Late st Contact Info) Description 08/19/2004 Outpatient Historical [facility] [place] [address] [place] [address] [place] [address] 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
--- OUTSIDE RECORDS SUMMARY | 2024-12-11 01:10 | XMS_ITS | Encounter Summary ---
Author Organization [facility] Address [address] [place] [address] Care Team Providers Care Instrument Assembly Supervisor Name Role Phone [facility], [facility] Provider Primary Care Provider Ele contreras Encounter Details Date Type Department Care Team (Late st Contact Info) Description 08/05/2004 Outpatient Historical [facility] [place] [address] [place] [address] [place] [address] 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
--- OUTSIDE RECORDS SUMMARY | 2024-12-11 01:10 | XMS_ITS | Encounter Summary ---
Author Organization [facility] Address [address] [place] [address] Care Team Providers Care Bag Loader Machine Operator Name Role Phone [facility] Provider Primary Care Provider Ele contreras Encounter Details Date Type Department Care Team (Late st Contact Info) Description 08/30/2004 Outpatient Historical [facility] [place] [address] [place] [address] [place] [address] [address] [place] [address] Social History Tobacco Use Types Packs/Day Years Used Date Smoking Tobacco: Never Assessed Comments Unknown Sex and Gender Information Value Date Recorded Sex Assigned at Not on file Legal Sex Female 5:25 AM COOKER TENDER Gender Identity Not on file Sexual Orientation Not on file documented as of this encounter Plan of Treatment Not on file documented as of this encounter Visit Diagnoses Not on filedocumented in this encounter Care Teams Bag Loader Machine Operator Relationship Specialty Start Date End Date [facility] [place] [address] PCP - General 08/09/10 documented as of this encounter
--- OUTSIDE RECORDS SUMMARY | 2024-12-11 01:10 | XMS_ITS | Encounter Summary ---
Author Organization [facility] Address [address] [place] [address] Care Team Providers Care Erector Operator Name Role Phone [facility] Provider Primary Care Provider Ele contreras Encounter Details Date Type Department Care Team (Late st Contact Info) Description 07/29/2004 Outpatient Historical [facility] [place] [address] [address] [place] [address] [place] [address] 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
--- OUTSIDE RECORDS SUMMARY | 2024-12-11 01:10 | XMS_ITS | Encounter Summary ---
Author Organization [facility] Address [address] [place] [address] Care Team Providers Care Refuse Collector Name Role Phone [facility] Provider Primary Care Provider Ele contreras Encounter Details Date Type Department Care Team (Late st Contact Info) Description 07/19/2004 Outpatient Historical [facility] [place] [address] [address] [place] [address] [place] [address] 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
--- OUTSIDE RECORDS SUMMARY | 2024-12-11 01:10 | XMS_ITS | Encounter Summary ---
Author Organization [facility] Address [address] [place] [address] Care Team Providers Care Nurses Educator Name Role Phone [facility] Provider Primary Care Provider Ele contreras Encounter Details Date Type Department Care Team (Late st Contact Info) Description 08/01/2006 Outpatient Historical [facility] [place] [address] [address] [place] [address] [place] [address] [address] [place] [address] Social History Tobacco Use Types Packs/Day Years Used Date Smoking Tobacco: Never Assessed Comments Unknown Sex and Gender Information Value Date Recorded Sex Assigned at Not on file Legal Sex Female 5:25 AM CLINICAL REIMBURSEMENT SPECIALIST Gender Identity Not on file Sexual Orientation Not on file documented as of this encounter Plan of Treatment Not on file documented as of this encounter Visit Diagnoses Not on filedocumented in this encounter Care Teams Nurses Educator Relationship Specialty Start Date End Date [facility] [place] [address] PCP - General 08/09/10 documented as of this encounter
--- OUTSIDE RECORDS SUMMARY | 2024-12-11 01:10 | XMS_ITS | Encounter Summary ---
Author Organization [facility] Address [address] [place] [address] Care Team Providers Care Quantitative Analyst Marketing Name Role Phone [facility], External Provider Primary Care Provider Ele contreras Encounter Details Date Type Department Care Team (Latest Contact Info) Description 06/23/2004 Outpatient Historical [facility] [address] [place] [address] [facility]. [address] [place] [address] SUPERVIS NORMAL [facility] PREG (Primary Dx) Social History Tobacco Use Types Packs/Day Years Used Date Smoking Tobacco: Never Assessed Comments Unknown Sex and Gender Information Value Date Recorded Sex Assigned at Not on file Legal Sex Female 5:25 AM SENIOR LOSS CONTROL SPECIALIST Gender Identity Not on file Sexual Orientation Not on file documented as of this encounter Plan of Treatment Not on file documented as of this encounter Procedures Procedure Name Priority Date/Time Associated Diagnosis Comments PROGESTERONE Routine 06/23/2004 9:37 PM SENIOR LOSS CONTROL SPECIALIST HCG QUANTITATIVE, BLOOD Routine 06/23/2004 9:37 PM SENIOR LOSS CONTROL SPECIALIST documented in this encounter Results * PROGESTERONE (06/23/2004 9:37 PM SENIOR LOSS CONTROL SPECIALIST) PROGESTERONE 38.8 ng/mL [employer] CE SYSTEM Comment: Progesterone Reference Range: Female: Normally Menstruating Female Follicular Phase 0.2 - 1.5 ng/mL Ovulation Phase 0.8 - 3.0 ng/mL Luteal Phase 1.7 - 27.0 ng/mL Postmenopausal 0.1 - 0.8 ng/mL No Pediatric Reference Range Available. 06/23/2004 9:37 PM SENIOR LOSS CONTROL SPECIALIST us Jarek Nunez MD CHEMISTRY ORDERABLES Final Resu lt Performing Organization Address City/State/[facility] Co de Phone Number INTERFACE SYSTEM Refer to clinic/hospital department * (ABNORMAL) HCG QUANTITATIVE, BLOOD (06/23/2004 9:37 PM SENIOR LOSS CONTROL SPECIALIST) HCG QUANT, BLOOD 252(H) 0 - 5 mIU/mL INTERFACE SYSTEM Comment: [...] Before making a diagnosis of malignancy or ectopic ,the result of thi s test should be confirmed with a urine HCG test and correlated with other clinical evidence. 06/23/2004 9:37 PM SENIOR LOSS CONTROL SPECIALIST us Jarek Nunez MD CHEMISTRY ORDERABLES Final Resu lt INTERFACE SYSTEM Refer to clinic/hospital department documented in this encounter Visit Diagnoses Diagnosis Supervision of normal first - Primary documented in this encounter Care Teams Quantitative Analyst Marketing Relationship Specialty Start Date End Date [facility], External Provider [address] [place] [address] PCP - General 08/09/10 documented as of this encounter
--- OUTSIDE RECORDS SUMMARY | 2024-12-11 01:10 | XMS_ITS | Encounter Summary ---
Author Organization [facility] Address [address] [place] [address] Care Team Providers Care Condominium Association Manager Name Role Phone [facility] Primary Care Provider Ele contreras Encounter Details Date Type Department Care Team (Late st Contact Info) Description 02/14/2005 Outpatient Historical [facility] [place] [address] [place] [address] [place] [address] 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
--- OUTSIDE RECORDS SUMMARY | 2024-12-11 01:10 | XMS_ITS | Encounter Summary ---
Author Organization [facility] Address [address] [place] [address] Care Team Providers Care Supervisor Tunnel Heading Name Role Phone [facility] Provider Primary Care Provider Ele contreras Encounter Details Date Type Department Care Team (Late st Contact Info) Description 06/30/2004 Outpatient Historical [facility] [place] [address] [address] [place] [address] [place] [address] 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
--- OUTSIDE RECORDS SUMMARY | 2024-12-11 01:10 | XMS_ITS | Encounter Summary ---
Author Organization [facility] Address [address] [place] [address] Care Team Providers Care Input Output Clerk Name Role Phone [facility], External Provider Primary Care Provider Ele contreras Encounter Details Date Type Department Care Team (Late st Contact Info) Description 02/07/2005 Outpatient Historical [facility] [place] [address] [place] [address] [place] [address] 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
--- OUTSIDE RECORDS SUMMARY | 2024-12-11 01:10 | XMS_ITS | Encounter Summary ---
Author Organization [facility] Address [address] [place] [address] Care Team Providers Care Executive Meeting Manager Name Role Phone [facility] Primary Care Provider Ele contreras Encounter Details Date Type Department Care Team (Late st Contact Info) Description 01/31/2005 Outpatient Historical [facility] [place] [address] [place] [address] [place] [address] 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
--- OUTSIDE RECORDS SUMMARY | 2024-12-11 01:10 | XMS_ITS | Clinical Summary ---
Author Organization [facility] PSA [address] [facility] Address [address] [place] [address] Care Team Providers Care Territory Sales Consultant Name Role Phone Timoteo Sommers MD Primary Care Provider [phone] Arvind Chappell MD Unavailable [phone] Allergies No known active allergies Medications levothyroxine (SYNTHROID) 125 mcg tablet Take 1 tablet (125 mcg total) by mouth stripe marker before breakfast Active chlorthalidone (HYGROTON) 25 mg tablet Take 1 tablet (25 mg total) by mouth every morning Active PARoxetine (PAXIL) 10 mg tablet Take 1 tablet (10 mg total) by mouth every morning Active losartan (COZAAR) 50 mg tablet Take 1 tablet (50 mg total) by mouth every morning Active acetaminophen (TYLENOL) 500 mg tablet Take 2 tablets (1,000 mg total) by mouth every 6 (six) hours as needed for pain 50 tablet 5 Active celecoxib (CeleBREX) 200 mg capsule TAKE 1 CAPSULE(200 MG) BY MOUTH TWICE DAILY 30 capsule 1 5 Active Active Problems Problem Noted Date Diagnosed Date Primary osteoarthritis of right knee 09/02/2024 S/P total knee arthroplasty, left 08/19/2024 S/P TKR (total knee replacement), left 5 S/P total knee arthroplasty, right 07/08/2024 Primary osteoarthritis of left knee 04/07/2024 Encounters Date Type Department Care Team Description 12/08/2024 Telephone [facility] Pre Anesthesia Testing [address] [place] [address] Sabrina Peterson May 11/26/2024 Telephone [facility] [address] [place] [address] Arvind Chappell MD 10/03/2024 10:30 AM CDT Office Visit [facility] [address] [place] [phone] Tammy Olivas NP S/P total knee arthroplasty, left (Primary Dx); Primary osteoarthritis of right knee from Last 3 Months Surgical History Surgery Date Site/Laterality Comments CHOLECYSTECTOMY HYSTERECTOMY Medical History Medical History Date Comments Primary osteoarthritis of left knee Obesity Hypothyroidism Hypertension Anxiety Social History Tobacco Use Types Packs/Day Years Used Date Smoking Tobacco: Never Smokeless Tobacco: Never Tobacco Cessation:Counseling Given: No AUDIT-C Answer Date Recorded Q1: How often do you have a drink containing alcohol? Never 06/20/2024 Q2: How many drinks containi ng alcohol do you have on a typical day when you are drinking? Patient does not drink Frequency of Binge Drinking Not on file 05/29 Personal Safety Answer Date Recorded Have you ever been in or are you currently in a harmful physical or emotional relationship or is someone making you feel afraid or unsafe? Denies 07/08/2024 Comments Unknown Sex and Gender Information Value Date Recorded Sex Assigned at Not on file Legal Sex Female 5:56 PM NUCLEAR POWER REACTOR OPERATOR Gender Identity Not on file Sexual Orientation Not on file Obstetrics History Last Filed Vital Signs Vital Sign Reading Time Taken Comments Blood Pressure 108/68 07/08/2024 3:30 PM NUCLEAR POWER REACTOR OPERATOR Pulse 75 07/08/2024 3:10 PM NUCLEAR POWER REACTOR OPERATOR Temperature 36.6 C (97.8 F) 07/08/2024 12:34 PM NUCLEAR POWER REACTOR OPERATOR Respiratory Rate 14 07/08/2024 3:10 PM NUCLEAR POWER REACTOR OPERATOR Oxygen Saturation 98% 07/08/2024 3:10 PM NUCLEAR POWER REACTOR OPERATOR Inhaled Oxygen Concentration - - Weight 105.7 kg (233 lb) 10/03/2024 10:34 AM CDT Height 170.2 cm (5' 7) 10/03/2024 10:34 AM CDT Body Mass Index 36.49 10/03/2024 10:34 AM CDT Plan of Treatment Upcoming Encounters Date Type Department Care Team (Latest Contact Info) Description 01/07/2025 7:15 AM CDT Hospital Encounter [facility] Operating Room [facility] [place] [phone] Arvind Chappell MD [address] [place] [address] 01/07/2025 7:15 AM CDT - 01/07/2025 10:15 AM CDT Surgery [facility] Operating Room [facility] [place] [address] Arvind Chappell MD [address] [place], [place] [id number] *SDS* Robotic Assisted Right Total Knee Arthroplasty Scheduled Procedures Name Priority Associated Diagnoses Date/Ti me ARTHROPLASTY TOTAL KNEE - S&N CORI Primary osteoarthritis of right knee 01/07/2025 7:15 AM CDT Health Maintenance Due Date Last Done Comments Breast Cancer Screening-Mammogram 1971 Colon Cancer Screening-Colonoscopy 1971 Depression Screening 1971 Hepatitis C Screening 1971 Hepatitis B Screening 1989 Regular Well Visit/Exam 18-64 1989 DTaP/Tdap/Td Vaccine (2 - Td or Tdap) 09/03/2020 09/03/2010 Zoster Vaccine (1 of 2) 2021 Covid-19 Vaccine (3 - 2023-2 5 season) 2024 08/07/2020, 07/10/2020 Influenza Vaccine (#1) 2025 Pneumococcal vaccine <65 Aged Out No longer eligible based on patient's age to complete this topic Medical Devices Implanted Type Area Stockroom Associate Device Identifier Shelf Expiration Date Model / Serial / Lot [employer]/Or tho Knee Component Pat Oval 32mm Polyethylene [id number] - [id number] Implanted:Qty: 1 on 07/08/2024 by Arvind Chappell MD at [facility] Left: Knee [employer] r[employer]o [id number] 05/03/2032 [id number] / / [id number] [employer]/Or tho [id number] Insert Tibial Fix Deep [facility] Xlpe Legion Sz 5-6 11mm - [id number] Implanted:Qty: 1 on 07/08/2024 by Arvind Chappell MD at [facility] Left: Knee [employer] rtho [id number] 05/30/2031 [id number] / / [id number] [employer]/Or tho Baseplate Tibial Lt Por W/Jrny Lck K 15 Pork Sz 5 [id number] - [id number] Implanted:Qty: 1 on 07/08/2024 by Arvind Chappell MD at [facility] Left: Knee [employer]o [id number] 05/12/2034 [id number] / / [id number] [employer]/Or tho Legion Cruciate Retain Knee Left 7 Component Femoral King Porous [id number] - [id number] Implanted:Qty: 1 on 07/08/2024 by Arvind Chappell MD at [facility] Left: Knee [employer] r[employer]o [id number] 05/05/2034 [id number] / / [id number] Procedures Procedure Name Priority Date/Time Associated Diagnosis Comments VA ARTHROCENTESIS ASPIR&/INJ MAJOR JT/BURSA W/O US Routine 10/03/2024 10:30 AM CDT Primary osteoarthritis of right knee from Last 3 Months Results * VA ARTHROCENTESIS ASPIR&/INJ MAJOR JT/BURSA W/O US (10/03/2024 10:30 AM CDT) Narrative Arvind Chappell MD - 10/03/2024 10:30 AM CDT Arvind Chappell MD 10/03/2024 12:40 PM Large Joint (Hip, Knee, Shoulder) Injection: R knee Performed by: Tammy Olivas NP Authorized by: Tammy Olivas NP Large Joint Injection/Aspiration: Consent Given by: Patient Timeout: prior to procedure the correct patient, procedure, and site was verified Verbal consent obtained: Yes Supporting Documentation: Indications: Pain and joint swelling Procedure Details: Location: Knee Site: R knee Prep: patient was prepped and draped in usual sterile fashion Needle Size: 22 G Approach: Anterolateral Ultrasound guided: No Medications: 4 mL lidocaine 10 mg/mL (1 %); 80 mg triamcinolone 40 mg/mL Patient tolerance: Patient tolerated the procedure well with no immediate complications us Tammy Olivas SUPERVISOR SOLDERING IN CLINIC/BEDSIDE ORDER KLEBER Final Result from Last 3 Months Insurance [employer] ACCESS CHOICE Care Teams Territory Sales Consultant Relationship Specialty Start Date End Date Timoteo Sommers MD [address] [place] [address] PCP - General Family Medicine 12/20/23 Arvind Chappell MD [address] [place] [address] Consulting Physician Orthopedic Surgery 07/08/24
--- OUTSIDE RECORDS SUMMARY | 2024-12-11 01:10 | XMS_ITS | Encounter Summary ---
Author Organization [facility] Address [address] [place] [address] Care Team Providers Care Training And Development Rep Name Role Phone [facility], External Provider Primary Care Provider Ele contreras Encounter Details Date Type Department Care Team (Late st Contact Info) Description 04/27/2004 Outpatient Historical [facility] [place] [address] [place] [address] [place] [address] [place] [address] Social History Tobacco Use Types Packs/Day Years Used Date Smoking Tobacco: Never Assessed Comments Unknown Sex and Gender Information Value Date Recorded Sex Assigned at Not on file Legal Sex Female 5:25 AM MISSION SUPPORT SPECIALIST Gender Identity Not on file Sexual Orientation Not on file documented as of this encounter Last Filed Vital Signs Vital Sign Reading Time Taken Comments Blood Pressure 122/98 04/27/2004 10:30 AM MISSION SUPPORT SPECIALIST Pulse 72 04/27/2004 10:30 AM MISSION SUPPORT SPECIALIST Temperature - - Respiratory Rate - - Oxygen Saturation - - Inhaled Oxygen Concentration - - Weight 91.2 kg (201 lb) 04/27/2004 10:30 AM MISSION SUPPORT SPECIALIST Height 168.3 cm (5' 6.25) 04/27/2004 10:30 AM C Body Mass Index 32.2 04/27/2004 10:30 AM MISSION SUPPORT SPECIALIST documented in this encounter Plan of Treatment Not on file documented as of this encounter Visit Diagnoses Not on filedocumented in this encounter Care Teams Training And Development Rep Relationship Specialty Start Date End Date [facility] [address] [place] [address] PCP - General 08/09/10 documented as of this encounter
--- OUTSIDE RECORDS SUMMARY | 2024-12-11 01:10 | XMS_ITS | Encounter Summary ---
Author Organization [facility] Address [address] [place] [address] Care Team Providers Care Research Chemical Engineer Name Role Phone [facility] Primary Care Provider Ele contreras Encounter Details Date Type Department Care Team (Late st Contact Info) Description 07/19/2004 Outpatient Historical [facility] Family [place] [address] [place] [address] [place] [address] [place] [address] Social History Tobacco Use Types Packs/Day Years Used Date Smoking Tobacco: Never Assessed Comments Unknown Sex and Gender Information Value Date Recorded Sex Assigned at Not on file Legal Sex Female 5:25 AM MANDREL CLEANER Gender Identity Not on file Sexual Orientation Not on file documented as of this encounter Plan of Treatment Not on file documented as of this encounter Visit Diagnoses Not on filedocumented in this encounter Care Teams Research Chemical Engineer Relationship Specialty Start Date End Date [facility] [place] [address] PCP - General 08/09/10 documented as of this encounter
--- OUTSIDE RECORDS SUMMARY | 2024-12-11 01:10 | XMS_ITS | Encounter Summary ---
Author Organization [facility] Address [address] [place] [address] Care Team Providers Care City Wellness Coordinator Name Role Phone [facility] Primary Care Provider Ele contreras Encounter Details Date Type Department Care Team (Late st Contact Info) Description 02/21/2005 Outpatient Historical [facility] Family [place] [address] [place] [address] [place] [address] [place] [address] Social History Tobacco Use Types Packs/Day Years Used Date Smoking Tobacco: Never Assessed Comments Unknown Sex and Gender Information Value Date Recorded Sex Assigned at Not on file Legal Sex Female 5:25 AM ASSISTANT PROFESSOR OF SOCIOLOGY Gender Identity Not on file Sexual Orientation Not on file documented as of this encounter Last Filed Vital Signs Vital Sign Reading Time Taken Comments Blood Pressure 126/82 02/21/2005 9:15 AM CDT Pulse - - Temperature - - Respiratory Rate - - Oxygen Saturation - - Inhaled Oxygen Concentration - - Weight 108 kg (238 lb) 02/21/2005 9:15 AM CDT Height - - Body Mass Index 38.12 04/27/2004 10:30 AM ASSISTANT PROFESSOR OF SOCIOLOGY documented in this encounter Plan of Treatment Not on file documented as of this encounter Visit Diagnoses Not on filedocumented in this encounter Care Teams City Wellness Coordinator Relationship Specialty Start Date End Date [facility], External Provider [address] [place] [address] PCP - General 08/09/10 documented as of this encounter
--- OUTSIDE RECORDS SUMMARY | 2024-12-11 01:10 | XMS_ITS | Encounter Summary ---
Author Organization [facility] Address [address] [place] [address] Care Team Providers Care Coke Burner Name Role Phone [facility] Primary Care Provider Ele contreras Encounter Details Date Type Department Care Team (Late st Contact Info) Description 03/07/2006 Outpatient Historical [facility] [place] [address] [place] [address] [place] [address] [place] [address] Social History Tobacco Use Types Packs/Day Years Used Date Smoking Tobacco: Never Assessed Comments Unknown Sex and Gender Information Value Date Recorded Sex Assigned at Not on file Legal Sex Female 5:25 AM SOCIAL WORKER ASSISTANT Gender Identity Not on file Sexual Orientation Not on file documented as of this encounter Plan of Treatment Not on file documented as of this encounter Visit Diagnoses Not on filedocumented in this encounter Care Teams Coke Burner Relationship Specialty Start Date End Date [facility] [place] [address] PCP - General 08/09/10 documented as of this encounter
--- OUTSIDE RECORDS SUMMARY | 2024-12-11 01:10 | XMS_ITS | Encounter Summary ---
Author Organization [facility] Address [address] [place] [address] Care Team Providers Care Drilling Engineering Manager Name Role Phone [facility] Primary Care Provider Ele contreras Encounter Details Date Type Department Care Team (Late st Contact Info) Description 07/26/2004 Outpatient Historical [facility] [place] [address] [place] [address] [place] [address] [place] [address] Social History Tobacco Use Types Packs/Day Years Used Date Smoking Tobacco: Never Assessed Comments Unknown Sex and Gender Information Value Date Recorded Sex Assigned at Not on file Legal Sex Female 5:25 AM CARPENTER LABOR SUPERVISOR Gender Identity Not on file Sexual Orientation Not on file documented as of this encounter Plan of Treatment Not on file documented as of this encounter Visit Diagnoses Not on filedocumented in this encounter Care Teams Drilling Engineering Manager Relationship Specialty Start Date End Date [facility] [place] [address] PCP - General 08/09/10 documented as of this encounter
--- OUTSIDE RECORDS SUMMARY | 2024-12-11 01:10 | XMS_ITS | Encounter Summary ---
Author Organization [facility] Address [address] [place] [address] Care Team Providers Care Pharmacy Buyer Name Role Phone [facility] Primary Care Provider Ele contreras Encounter Details Date Type Department Care Team (Late st Contact Info) Description 07/27/2006 Outpatient Historical [facility] [place] [address] [place] [address] [place] [address] [place] [address] Social History Tobacco Use Types Packs/Day Years Used Date Smoking Tobacco: Never Assessed Comments Unknown Sex and Gender Information Value Date Recorded Sex Assigned at Not on file Legal Sex Female 5:25 AM INFUSION NURSE Gender Identity Not on file Sexual Orientation Not on file documented as of this encounter Plan of Treatment Not on file documented as of this encounter Visit Diagnoses Not on filedocumented in this encounter Care Teams Pharmacy Buyer Relationship Specialty Start Date End Date [facility] [place] [address] PCP - General 08/09/10 documented as of this encounter
--- OUTSIDE RECORDS SUMMARY | 2024-12-11 01:10 | XMS_ITS | Encounter Summary ---
Author Organization [facility] Address [address] [place] [address] Care Team Providers Care Surveillance Systems Analyst Name Role Phone [facility], External Provider Primary Care Provider Ele contreras Encounter Details Date Type Department Care Team (Latest Contact Info) Description 08/02/2004 Outpatient Historical [facility] [place] [address] [facility] [place] [address] SUPERVIS NORMAL 1ST PREG (Primary Dx) Social History Tobacco Use Types Packs/Day Years Used Date Smoking Tobacco: Never Assessed Comments Unknown Sex and Gender Information Value Date Recorded Sex Assigned at Not on file Legal Sex Female 5:25 AM GAMBLING BOX PERSON Gender Identity Not on file Sexual Orientation Not on file documented as of this encounter Plan of Treatment Not on file documented as of this encounter Procedures Procedure Name Priority Date/Time Associated Diagnosis Comments PROGESTERONE Routine 08/02/2004 8:33 PM GAMBLING BOX PERSON documented in this encounter Results * PROGESTERONE (08/02/2004 8:33 PM GAMBLING BOX PERSON) PROGESTERONE 25.5 ng/mL INTERFA CE SYSTEM Comment: Progesterone Reference Range: Female: Normally Menstruating Female Follicular Phase 0.2 - 1.5 ng/mL Ovulation Phase 0.8 - 3.0 ng/mL Luteal Phase 1.7 - 27.0 ng/mL Postmenopausal 0.1 - 0.8 ng/mL No Pediatric Reference Range Available. Slightly hemolyzed. 08/02/2004 8:33 PM GAMBLING BOX PERSON us Jarek Nunez MD CHEMISTRY ORDERABLES Final Resu lt INTERFACE SYSTEM Refer to clinic/hospital department documented in this encounter Visit Diagnoses Diagnosis Supervision of normal first - Primary documented in this encounter Care Teams Surveillance Systems Analyst Relationship Specialty Start Date End Date [facility], External Provider [address] [place] [address] PCP - General 08/09/10 documented as of this encounter
--- OUTSIDE RECORDS SUMMARY | 2024-12-11 01:10 | XMS_ITS | Encounter Summary ---
Author Organization [facility] Address [address] [place] [address] Care Team Providers Care Cardiac Catheterization Technologist Name Role Phone [facility] Primary Care Provider Ele contreras Encounter Details Date Type Department Care Team (Late st Contact Info) Description 07/12/2004 Outpatient Historical [facility] [place] [address] [place] [address] [place] [address] [place] [address] Social History Tobacco Use Types Packs/Day Years Used Date Smoking Tobacco: Never Assessed Comments Unknown Sex and Gender Information Value Date Recorded Sex Assigned at Not on file Legal Sex Female 5:25 AM RESEARCH MANUFACTURING OPERATOR Gender Identity Not on file Sexual Orientation Not on file documented as of this encounter Plan of Treatment Not on file documented as of this encounter Visit Diagnoses Not on filedocumented in this encounter Care Teams Cardiac Catheterization Technologist Relationship Specialty Start Date End Date [facility] [place] [address] PCP - General 08/09/10 documented as of this encounter
--- OUTSIDE RECORDS SUMMARY | 2024-12-11 01:10 | XMS_ITS | Encounter Summary ---
Author Organization [facility] Address [address] [place] [address] Care Team Providers Care Shipping Coordinator Name Role Phone [facility], External Provider Primary Care Provider Ele contreras Encounter Details Date Type Department Care Team (Late st Contact Info) Description 08/31/2004 Outpatient Historical [facility], [address] [place] [address] [facility] [place] [address] Social History Tobacco Use Types Packs/Day Years Used Date Smoking Tobacco: Never Assessed Comments Unknown Sex and Gender Information Value Date Recorded Sex Assigned at Not on file Legal Sex Female 5:25 AM FORGING DIE FINISHER Gender Identity Not on file Sexual Orientation Not on file documented as of this encounter Plan of Treatment Not on file documented as of this encounter Visit Diagnoses Not on filedocumented in this encounter Care Teams Shipping Coordinator Relationship Specialty Start Date End Date [facility] [place] [address] PCP - General 08/09/10 documented as of this encounter
--- OUTSIDE RECORDS SUMMARY | 2024-12-11 01:10 | XMS_ITS | Encounter Summary ---
Author Organization [facility] Address [address] [place] [address] Care Team Providers Care Financial Accounting Analyst Name Role Phone [facility], External Provider Primary Care Provider Ele contreras Encounter Details Date Type Department Care Team (Latest Contact Info) Description 07/11/2006 Outpatient Historical [facility] [place] [address] [place] [address] [place] [address] [place] [address] Absence of Menstruation (Primary Dx) Social History Tobacco Use Types Packs/Day Years Used Date Smoking Tobacco: Never Assessed Comments Unknown Sex and Gender Information Value Date Recorded Sex Assigned at Not on file Legal Sex Female 5:25 AM RADIOLOGY AIDE Gender Identity Not on file Sexual Orientation Not on file documented as of this encounter Plan of Treatment Not on file documented as of this encounter Procedures Procedure Name Priority Date/Time Associated Diagnosis Comments PROGESTERONE Routine 07/11/2006 3:23 PM RADIOLOGY AIDE HCG QUANTITATIVE, BLOOD Routine 07/11/2006 3:23 PM RADIOLOGY AIDE documented in this encounter Results * PROGESTERONE (07/11/2006 3:23 PM RADIOLOGY AIDE) PROGESTERONE 29.9 ng/mL INTERFA CE SYSTEM Comment: Progesterone Reference Range: Female: Normally Menstruating Female Follicular Phase 0.2 - 1.5 ng/mL Ovulation Phase 0.8 - 3.0 ng/mL Luteal Phase 1.7 - 27.0 ng/mL Postmenopausal 0.1 - 0.8 ng/mL No Pediatric Reference Range Available. 07/11/2006 3:23 PM RADIOLOGY AIDE Jarek Nunez MD CHEMISTRY ORDERABLES Edited Performing Organization Address [facility] Co de Phone Number INTERFACE SYSTEM Refer to clinic/hospital department * (ABNORMAL) BETA HCG QUANTITATIVE, BLOOD (07/11/2006 3:23 PM RADIOLOGY AIDE) HCG QUANT, BLOOD 319(H) 0 - 5 mIU/mL INTERFACE SYSTEM Comment: [...] test and correlated with other clinical evidence. 07/11/2006 3:23 PM RADIOLOGY AIDE Jarek Nunez MD CHEMISTRY ORDERABLES Edited Performing Organization Address [facility] Co de Phone Number INTERFACE SYSTEM Refer to clinic/hospital department documented in this encounter Visit Diagnoses Diagnosis Absence of menstruation- Primary documented in this encounter Care Teams Financial Accounting Analyst Relationship Specialty Start Date End Date [facility], External Provider [address] [place] [address] PCP - General 08/09/10 documented as of this encounter
--- OUTSIDE RECORDS SUMMARY | 2024-12-11 01:10 | XMS_ITS | Encounter Summary ---
Author Organization [facility] Address [address] [place] [address] Care Team Providers Care Dehairer Name Role Phone [facility] Primary Care Provider Ele contreras Encounter Details Date Type Department Care Team (Late st Contact Info) Description 07/29/2004 Outpatient Historical [facility] [place] [address] [place] [address] [place] [address] [place] [address] Social History Tobacco Use Types Packs/Day Years Used Date Smoking Tobacco: Never Assessed Comments Unknown Sex and Gender Information Value Date Recorded Sex Assigned at Not on file Legal Sex Female 5:25 AM FUNCTIONAL ARCHITECT Gender Identity Not on file Sexual Orientation Not on file documented as of this encounter Plan of Treatment Not on file documented as of this encounter Visit Diagnoses Not on filedocumented in this encounter Care Teams Dehairer Relationship Specialty Start Date End Date [facility] [place] [address] PCP - General 08/09/10 documented as of this encounter
--- OUTSIDE RECORDS SUMMARY | 2024-12-11 01:10 | XMS_ITS | Encounter Summary ---
Author Organization [facility] Address [address] [place] [address] Care Team Providers Care Data Officer Name Role Phone [facility] Primary Care Provider Ele contreras Encounter Details Date Type Department Care Team (Late st Contact Info) Description 07/01/2004 Outpatient Historical [facility] [place] [address] [place] [address] [place] [address] [place] [address] Social History Tobacco Use Types Packs/Day Years Used Date Smoking Tobacco: Never Assessed Comments Unknown Sex and Gender Information Value Date Recorded Sex Assigned at Not on file Legal Sex Female 5:25 AM RADIOLOGIST CHIEF OF BREAST IMAGING Gender Identity Not on file Sexual Orientation Not on file documented as of this encounter Plan of Treatment Not on file documented as of this encounter Visit Diagnoses Not on filedocumented in this encounter Care Teams Data Officer Relationship Specialty Start Date End Date [facility] [place] [address] PCP - General 08/09/10 documented as of this encounter
--- OUTSIDE RECORDS SUMMARY | 2024-12-11 01:10 | XMS_ITS | Encounter Summary ---
Author Organization [facility] Address [address] [place] [address] Care Team Providers Care Blending Tank Tender Name Role Phone [facility] Primary Care Provider Ele contreras Encounter Details Date Type Department Care Team (Late st Contact Info) Description 04/24/2007 Outpatient Historical [facility] [place] [address] [place] [address] [place] [address] [address] [place] [address] Social History Tobacco Use Types Packs/Day Years Used Date Smoking Tobacco: Never Assessed Comments Unknown Sex and Gender Information Value Date Recorded Sex Assigned at Not on file Legal Sex Female 5:25 AM GLUING MACHINE OPERATOR ELECTRONIC Gender Identity Not on file Sexual Orientation Not on file documented as of this encounter Plan of Treatment Not on file documented as of this encounter Visit Diagnoses Not on filedocumented in this encounter Care Teams Blending Tank Tender Relationship Specialty Start Date End Date [facility] [place] [address] PCP - General 08/09/10 documented as of this encounter
--- OUTSIDE RECORDS SUMMARY | 2024-12-11 01:10 | XMS_ITS | Encounter Summary ---
Author Organization [facility] Address [address] [place] [address] Care Team Providers Care Operations Developer Name Role Phone [facility] Provider Primary Care Provider Ele contreras Encounter Details Date Type Department Care Team (Late st Contact Info) Description 12/09/2001 Outpatient Historical [facility] Internal Medicine - [address] [place] [address] Flavio Morrison MD NO ADDRESS ON FILE Social History Tobacco Use Types Packs/Day Years Used Date Smoking Tobacco: Never Assessed Comments Unknown Sex and Gender Information Value Date Recorded Sex Assigned at Not on file Legal Sex Female 5:25 AM CITY COMPTROLLER Gender Identity Not on file Sexual Orientation Not on file documented as of this encounter Plan of Treatment Not on file documented as of this encounter Visit Diagnoses Not on filedocumented in this encounter Care Teams Operations Developer Relationship Specialty Start Date End Date Sloan, [place] [address] PCP - General 08/09/10 documented as of this encounter
--- OUTSIDE RECORDS SUMMARY | 2024-12-11 01:10 | XMS_ITS | Encounter Summary ---
Author Organization [facility] Address [address] [place] [address] Care Team Providers Care Out Of Town Collection Clerk Name Role Phone [facility], External Provider Primary Care Provider Ele contreras Encounter Details Date Type Department Care Team (Latest Contact Info) Description 06/20/2004 Outpatient Historical [facility] [address] [place] [address] [facility] [place] [address] ABSENCE OF MENSTRUATION (Primary Dx) Social History Tobacco Use Types Packs/Day Years Used Date Smoking Tobacco: Never Assessed Comments Unknown Sex and Gender Information Value Date Recorded Sex Assigned at Not on file Legal Sex Female 5:25 AM SEAM FINISHER Gender Identity Not on file Sexual Orientation Not on file documented as of this encounter Plan of Treatment Not on file documented as of this encounter Procedures Procedure Name Priority Date/Time Associated Diagnosis Comments HCG QUANTITATIVE, BLOOD Routine 06/20/2004 10:09 PM SEAM FINISHER PROGESTERONE Routine 06/20/2004 9:52 PM SEAM FINISHER documented in this encounter Results * (ABNORMAL) HCG QUANTITATIVE, BLOOD (06/20/2004 10:09 PM SEAM FINISHER) HCG QUANT, BLOOD 60(H) 0 - 5 mIU/mL INTERFACE SYSTEM Comment: [...] test and correlated with other clinical evidence. 06/20/2004 10:0 9 PM SEAM FINISHER us Jarek Nunez MD CHEMISTRY ORDERABLES Final Resu lt Performing Organization Address City/State/[facility] Co de Phone Number INTERFACE SYSTEM Refer to clinic/hospital department * PROGESTERONE (06/20/2004 9:52 PM SEAM FINISHER) Pathologist [facility] PROGESTERONE 34.4 ng/mL INTERFA CE SYSTEM Comment: Progesterone Reference Range: Female: Normally Menstruating Female Follicular Phase 0.2 - 1.5 ng/mL Ovulation Phase 0.8 - 3.0 ng/mL Luteal Phase 1.7 - 27.0 ng/mL Postmenopausal 0.1 - 0.8 ng/mL No Pediatric Reference Range Available. 06/20/2004 9:52 PM SEAM FINISHER us Jarek Nunez MD CHEMISTRY ORDERABLES Final Resu lt INTERFACE SYSTEM Refer to clinic/hospital department documented in this encounter Visit Diagnoses Diagnosis Absence of menstruation- Primary documented in this encounter Care Teams Out Of Town Collection Clerk Relationship Specialty Start Date End Date [facility], External Provider [address] [place] [address] PCP - General 08/09/10 documented as of this encounter
--- OUTSIDE RECORDS SUMMARY | 2024-12-11 01:10 | XMS_ITS | Encounter Summary ---
Author Organization [facility] Address [address] [place] [address] Care Team Providers Care Industrial Real Estate Agent Name Role Phone [facility] Primary Care Provider Ele contreras Encounter Details Date Type Department Care Team (Late st Contact Info) Description 08/12/2004 Outpatient Historical [facility] Family Medicine [place] [address] [place] [address] [place] [address] [place] [address] Social History Tobacco Use Types Packs/Day Years Used Date Smoking Tobacco: Never Assessed Comments Unknown Sex and Gender Information Value Date Recorded Sex Assigned at Not on file Legal Sex Female 5:25 AM WIND COMMISSIONING TECHNICIAN Gender Identity Not on file Sexual Orientation Not on file documented as of this encounter Plan of Treatment Not on file documented as of this encounter Visit Diagnoses Not on filedocumented in this encounter Care Teams Industrial Real Estate Agent Relationship Specialty Start Date End Date [facility], [place] [address] PCP - General 08/09/10 documented as of this encounter
--- OUTSIDE RECORDS SUMMARY | 2024-12-11 01:10 | XMS_ITS | Encounter Summary ---
Author Organization [facility] Address [address] [place] [address] Care Team Providers Care Psychologist Industrial Organizational Name Role Phone [facility] Provider Primary Care Provider Ele contreras Encounter Details Date Type Department Care Team (Late st Contact Info) Description 01/12/2003 Inpatient Historical [facility] Yuli Stewart MD NO ADDRESS ON FILE [facility] [employer] FERTILITY TESTING (Primary Dx) Social History Tobacco Use Types Packs/Day Years Used Date Smoking Tobacco: Never Assessed Comments Unknown Sex and Gender Information Value Date Recorded Sex Assigned at Not on file Legal Sex Female 5:25 AM OFFSET SECOND PRESS OPERATOR Gender Identity Not on file Sexual Orientation Not on file documented as of this encounter Plan of Treatment Not on file documented as of this encounter Visit Diagnoses Diagnosis Fertility testing- Primary documented in this encounter Care Teams Psychologist Industrial Organizational Relationship Specialty Start Date End Date Demond, External Provider [address] [place] [address] PCP - General 08/09/10 documented as of this encounter
--- OUTSIDE RECORDS SUMMARY | 2024-12-11 01:10 | XMS_ITS | Encounter Summary ---
Author Organization [facility] Address [address] [place] [address] Care Team Providers Care Mailing Machine Assistant Name Role Phone [facility] Provider Primary Care Provider Ele contreras Encounter Details Date Type Department Care Team (Late st Contact Info) Description 08/30/2004 Outpatient Historical [facility] [place] [address] [place] [address] [place] [address] [address] [place] [address] Social History Tobacco Use Types Packs/Day Years Used Date Smoking Tobacco: Never Assessed Comments Unknown Sex and Gender Information Value Date Recorded Sex Assigned at Not on file Legal Sex Female 5:25 AM RECRUITMENT CONSULTANT Gender Identity Not on file Sexual Orientation Not on file documented as of this encounter Last Filed Vital Signs Vital Sign Reading Time Taken Comments Blood Pressure 148/88 08/30/2004 4:15 PM CDT Pulse - - Temperature - - Respiratory Rate - - Oxygen Saturation - - Inhaled Oxygen Concentration - - Weight 94.3 kg (208 lb) 08/30/2004 4:15 PM CDT Height - - Body Mass Index 33.32 04/27/2004 10:30 AM RECRUITMENT CONSULTANT documented in this encounter Plan of Treatment Not on file documented as of this encounter Visit Diagnoses Not on filedocumented in this encounter Care Teams Mailing Machine Assistant Relationship Specialty Start Date End Date Demond, External Provider [address] [place] [address] PCP - General 08/09/10 documented as of this encounter
--- OUTSIDE RECORDS SUMMARY | 2024-12-11 01:10 | XMS_ITS | Encounter Summary ---
Author Organization [facility] Address [address] [place] [address] Care Team Providers Care Enamel Cracker Name Role Phone [facility] Primary Care Provider Ele contreras Encounter Details Date Type Department Care Team (Late st Contact Info) Description 08/16/2004 Outpatient Historical [facility] [place] [address] [place] [address] [place] [address] [address] [place] [address] Social History Tobacco Use Types Packs/Day Years Used Date Smoking Tobacco: Never Assessed Comments Unknown Sex and Gender Information Value Date Recorded Sex Assigned at Not on file Legal Sex Female 5:25 AM HOUSEKEEPING LEAD Gender Identity Not on file Sexual Orientation Not on file documented as of this encounter Plan of Treatment Not on file documented as of this encounter Visit Diagnoses Not on filedocumented in this encounter Care Teams Enamel Cracker Relationship Specialty Start Date End Date [facility] [place] [address] PCP - General 08/09/10 documented as of this encounter
--- OUTSIDE RECORDS SUMMARY | 2024-12-11 01:10 | XMS_ITS | Encounter Summary ---
Author Organization [facility] Address [address] [place] [address] Care Team Providers Care National Sales Associate Name Role Phone [facility] Primary Care Provider Ele contreras Encounter Details Date Type Department Care Team (Late st Contact Info) Description 07/11/2006 Outpatient Historical [facility] [place] [address] [place] [address] [place] [address] [address] [place] [address] Social History Tobacco Use Types Packs/Day Years Used Date Smoking Tobacco: Never Assessed Comments Unknown Sex and Gender Information Value Date Recorded Sex Assigned at Not on file Legal Sex Female 5:25 AM LINE PREP COOK Gender Identity Not on file Sexual Orientation Not on file documented as of this encounter Plan of Treatment Not on file documented as of this encounter Visit Diagnoses Not on filedocumented in this encounter Care Teams National Sales Associate Relationship Specialty Start Date End Date [facility] [place] [address] PCP - General 08/09/10 documented as of this encounter
--- OUTSIDE RECORDS SUMMARY | 2024-12-11 01:10 | XMS_ITS | Encounter Summary ---
Author Organization [facility] Address [address] [place] [address] Care Team Providers Care Food Science Technician Name Role Phone [facility] Primary Care Provider Ele contreras Encounter Details Date Type Department Care Team (Late st Contact Info) Description 08/02/2004 Outpatient Historical [facility] [place] [address] [place] [address] [place] [address] [address] [place] [address] Social History Tobacco Use Types Packs/Day Years Used Date Smoking Tobacco: Never Assessed Comments Unknown Sex and Gender Information Value Date Recorded Sex Assigned at Not on file Legal Sex Female 5:25 AM DRAFTER HEATING AND VENTILATING Gender Identity Not on file Sexual Orientation Not on file documented as of this encounter Last Filed Vital Signs Vital Sign Reading Time Taken Comments Blood Pressure 126/94 08/02/2004 4:15 PM DRAFTER HEATING AND VENTILATING Pulse - - Temperature - - Respiratory Rate - - Oxygen Saturation - - Inhaled Oxygen Concentration - - Weight 93 kg (205 lb) 08/02/2004 4:15 PM DRAFTER HEATING AND VENTILATING Height - - Body Mass Index 32.84 04/27/2004 10:30 AM DRAFTER HEATING AND VENTILATING documented in this encounter Plan of Treatment Not on file documented as of this encounter Visit Diagnoses Not on filedocumented in this encounter Care Teams Food Science Technician Relationship Specialty Start Date End Date Demond, External Provider [address] [place] [address] PCP - General 08/09/10 documented as of this encounter
--- OUTSIDE RECORDS SUMMARY | 2024-12-11 01:10 | XMS_ITS | Encounter Summary ---
Author Organization [facility] Address [address] [place] [address] Care Team Providers Care Supervisor Shellfish Farming Name Role Phone [facility] Primary Care Provider Ele contreras Encounter Details Date Type Department Care Team (Late st Contact Info) Description 07/05/2004 Outpatient Historical [facility] [place] [address] [place] [address] [place] [address] 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
--- OUTSIDE RECORDS SUMMARY | 2024-12-11 01:10 | XMS_ITS | Encounter Summary ---
Author Organization [facility] Address [address] [place] [address] Care Team Providers Care Diamond Powder Technician Name Role Phone [facility] Primary Care Provider Ele contreras Encounter Details Date Type Department Care Team (Late st Contact Info) Description 07/27/2006 Outpatient Historical [facility] [place] [address] [place] [address] [place] [address] [address] [place] [address] Social History Tobacco Use Types Packs/Day Years Used Date Smoking Tobacco: Never Assessed Comments Unknown Sex and Gender Information Value Date Recorded Sex Assigned at Not on file Legal Sex Female 5:25 AM WRECKING CRANE ENGINE OPERATOR Gender Identity Not on file Sexual Orientation Not on file documented as of this encounter Plan of Treatment Not on file documented as of this encounter Visit Diagnoses Not on filedocumented in this encounter Care Teams Diamond Powder Technician Relationship Specialty Start Date End Date [facility] [place] [address] PCP - General 08/09/10 documented as of this encounter
--- OUTSIDE RECORDS SUMMARY | 2024-12-11 01:10 | XMS_ITS | Encounter Summary ---
Author Organization [employer] Address [address] [place] [address] Care Team Providers Care Autism Specialist Name Role Phone [facility], [facility] Primary Care Provider U ben Encounter Details Date Type Department Care Team (Latest Contact Info) Description 07/05/2004 Outpatient Historical HIS LAB, [facility] [place] [id number] [facility] [place] [address] SUPERVIS NORMAL 1ST PREG (Primary Dx) Social History Tobacco Use Types Packs/Day Years Used Date Smoking Tobacco: Never Assessed Comments Unknown Sex and Gender Information Value Date Recorded Sex Assigned at Not on file Legal Sex Female 5:25 AM SWEEPER DRIVER Gender Identity Not on file Sexual Orientation Not on file documented as of this encounter Plan of Treatment Not on file documented as of this encounter Procedures Procedure Name Priority Date/Time Associated Diagnosis Comments HEPATITIS B SURFACE ANTIGEN Routine 07/05/2004 10:30 PM SWEEPER DRIVER RUBELLA IGG Routine 07/05/2004 10:30 PM SWEEPER DRIVER CBC WITH DIFFERENTIAL Routine 07/05/2004 10:30 PM SWEEPER DRIVER CBC WITH DIFFERENTIAL Routine 07/05/2004 10:30 PM SWEEPER DRIVER PROGESTERONE Routine 07/05/2004 10:30 PM SWEEPER DRIVER RPR Routine 07/05/2004 10:30 PM SWEEPER DRIVER HCG QUANTITATIVE, BLOOD Routine 07/05/2004 10:30 PM SWEEPER DRIVER documented in this encounter Results * (ABNORMAL) HCG QUANTITATIVE, BLOOD (07/05/2004 10:30 PM SWEEPER DRIVER) HCG QUANT, BLOOD 16,229(H) 0 - 5 mIU/mL INTERFACE SYSTEM Comment: [...] test and correlated with other clinical evidence. 07/05/2004 10:3 0 PM SWEEPER DRIVER Jarek Nunez MD CHEMISTRY ORDERABLES Final Resu lt INTERFACE SYSTEM Refer to clinic/hospital department * PROGESTERONE (07/05/2004 10:30 PM SWEEPER DRIVER) PROGESTERONE 21.7 ng/mL INTERFA CE SYSTEM Comment: Progesterone Reference Range: Female: Normally Menstruating Female Follicular Phase 0.2 - 1.5 ng/mL Ovulation Phase 0.8 - 3.0 ng/mL Luteal Phase 1.7 - 27.0 ng/mL Postmenopausal 0.1 - 0.8 ng/mL No Pediatric Reference Range Available. 07/05/2004 10:3 0 PM SWEEPER DRIVER Jarek Nunez MD CHEMISTRY ORDERABLES Final Resu lt Performing Organization Address [facility] Phone Number INTERFACE SYSTEM Refer to clinic/hospital department * CBC WITH DIFFERENTIAL (07/05/2004 10:30 PM SWEEPER DRIVER) NEUTROPHILS 69 45 - 70 % INTERFAC E SYSTEM LYMPHOCYTES 22 16 - 45 % INTERFAC E SYSTEM MONOCYTES 9 3 - 13 % INTERFACE SYSTEM EOSINOPHILS 1 0 - 7 % INTERFAC E SYSTEM BASOPHILS 0 0 - 2 % INTERFACE SYSTEM NEUTROPHIL ABSOLUTE 4.70 1.90 - 7.00 K/uL INTERFACE SYSTEM LYMPHOCYTE ABSOLUTE 1.47 0.70 - 4.50 K/uL INTERFACE SYSTEM MONOCYTE ABSOLUTE 0.62 0.10 - 1.30 K/uL INTERFACE SYSTEM EOSINOPHIL ABSOLUTE 0.04 0.00 - 0.70 K/uL INTERFACE SYSTEM BASOPHILS ABSOLUTE 0.02 0.00 - 0.20 K/uL INTERFACE SYSTEM 07/05/2004 10:3 0 PM SWEEPER DRIVER Jarek Nunez MD HEMATOLOGY ORDERABLES Final Res ult Performing Organization Address [facility] Phone Number INTERFACE SYSTEM Refer to clinic/hospital department * (ABNORMAL) CBC WITH DIFFERENTIAL (07/05/2004 10:30 PM SWEEPER DRIVER) WBC 6.9 4.0 - 9.8 K/uL INTERFACE SYSTEM RBC 4.19 3.90 - 4.90 M/uL INTERFACE SYSTEM HEMOGLOBIN 14.2 11.8 - 14.8 g/dL INTERFACE SYSTEM HEMATOCRIT 39.2 35.5 - 44.0 % INTERFACE SYSTEM MCV 93.6 82.0 - 99.0 fL INTERFACE SYSTEM MCH 33.9(H) 27.2 - 32.6 pg INTERFACE SYSTEM MCHC 36.2(H) 31.5 - 35.5 % INTERFACE SYSTEM RDW 12.8 11.5 - 14.5 % INTERFACE SYSTEM RDW-STDEV 43.4 37.1 - 48.7 fL INTERFACE SYSTEM PLATELETS 196 140 - 350 K/uL INTERFACE SYSTEM MPV 11.8 9.3 - 12.4 fL INTERFACE SYSTEM 07/05/2004 10:3 0 PM SWEEPER DRIVER us Jarek Nunez MD HEMATOLOGY ORDERABLES Final Res ult Performing Organization Address [facility] de Phone Number INTERFACE SYSTEM Refer to clinic/hospital department * HEPATITIS B SURFACE ANTIGEN (07/05/2004 10:30 PM SWEEPER DRIVER) HEPATITIS B SURFACE AG NON-REACT DAVID NON-REACT DAVID INTERFACE SYSTEM Comment: Lab test performed by: [email or web address] [address] DARNELL CROUCH MD 07/05/2004 10:3 0 PM SWEEPER DRIVER us Jarek Nunez MD CHEMISTRY ORDERABLES Final Resu lt Performing Organization Address [facility] Phone Number INTERFACE SYSTEM Refer to clinic/hospital department * RUBELLA IGG (07/05/2004 10:30 PM SWEEPER DRIVER) Pathologist [facility] RUBELLA IGG 3.72 EIA Value INTERFAC E SYSTEM Comment: EIA VALUE EXPLANATION OF TEST RESULTS --------- <0.91 NEGATIVE - NO RUBELLA IGG ANTIBODY DETECTED. 0.91 - 1.09 EQUIVOCAL > OR = 1.10 POSITIVE - RUBELLA IGG ANTIBODY DETECTED. THE PRESENCE OF RUBELLA IGG ANTIBODY SUGGESTS IMMUNIZATION OR PAST OR CURRENT INFECTION WITH RUBELLA VIRUS. Lab test performed by: [email or web address] [id number] DARNELL CROUCH MD 07/05/2004 10:3 0 PM SWEEPER DRIVER us Jarek Nunez MD CHEMISTRY ORDERABLES Final Resu lt Performing Organization Address [facility] de Phone Number INTERFACE SYSTEM Refer to clinic/hospital department * RPR (07/05/2004 10:30 PM SWEEPER DRIVER) RPR NON-REACT DAVID NON-REACT DAVID INTERFACE SYSTEM Comment: Lab test performed by: [email or web address] [address] DARNELL CROUCH MD 07/05/2004 10:3 0 PM SWEEPER DRIVER us Jarek Nunez MD CHEMISTRY ORDERABLES Final Resu lt INTERFACE SYSTEM Refer to clinic/hospital department documented in this encounter Visit Diagnoses Diagnosis Supervision of normal first - Primary documented in this encounter Care Teams Autism Specialist Relationship Specialty Start Date End Date [facility], External Provider [address] [place] [address] PCP - General 08/09/10 documented as of this encounter
--- OUTSIDE RECORDS SUMMARY | 2024-12-11 01:11 | XMS_ITS | Encounter Summary ---
Author Organization [facility] Address [address] [place] [address] Care Team Providers Care Director Of Assessment Name Role Phone [facility], External Provider Primary Care Provider Ele cnotreras Encounter Details Date Type Department Care Team (Late st Contact Info) Description 03/22/2005 Outpatient Historical [facility] [address] [address] [place] [address] [place] [address] [address] [place] [address] Social History Tobacco Use Types Packs/Day Years Used Date Smoking Tobacco: Never Assessed Comments Unknown Sex and Gender Information Value Date Recorded Sex Assigned at Not on file Legal Sex Female 5:25 AM CROSSCUTTER Gender Identity Not on file Sexual Orientation Not on file documented as of this encounter Last Filed Vital Signs Vital Sign Reading Time Taken Comments Blood Pressure 128/82 03/22/2005 1:00 PM CDT Pulse 80 03/22/2005 1:00 PM CDT Temperature - - Respiratory Rate 16 03/22/2005 1:00 PM CDT Oxygen Saturation - - Inhaled Oxygen Concentration - - Weight 97.1 kg (214 lb) 03/22/2005 1:00 PM CDT Height - - Body Mass Index 34.28 04/27/2004 10:30 AM CROSSCUTTER documented in this encounter Plan of Treatment Not on file documented as of this encounter Visit Diagnoses Not on filedocumented in this encounter Care Teams Director Of Assessment Relationship Specialty Start Date End Date [facility], External Provider [address] [place] [address] PCP - General 08/09/10 documented as of this encounter
--- OUTSIDE RECORDS SUMMARY | 2024-12-11 01:11 | XMS_ITS | Encounter Summary ---
Author Organization [facility] Address [address] [place] [address] Care Team Providers Care Elevator Mechanic Apprentice Name Role Phone [facility], External Provider Primary Care Provider Ele contreras Encounter Details Date Type Department Care Team (Late st Contact Info) Description 07/05/2001 Outpatient Historical [facility] Primary Care - [address] [phone] Flavio Morrison MD NO ADDRESS ON FILE Social History Tobacco Use Types Packs/Day Years Used Date Smoking Tobacco: Never Assessed Comments Unknown Sex and Gender Information Value Date Recorded Sex Assigned at Not on file Legal Sex Female 5:25 AM FRAME BANDER Gender Identity Not on file Sexual Orientation Not on file documented as of this encounter Plan of Treatment Not on file documented as of this encounter Visit Diagnoses Not on filedocumented in this encounter Care Teams Elevator Mechanic Apprentice Relationship Specialty Start Date End Date [facility], External Provider [address] [place] [place] [address] PCP - General 08/09/10 documented as of this encounter
--- OUTSIDE RECORDS SUMMARY | 2024-12-11 01:11 | XMS_ITS | Encounter Summary ---
Author Organization [employer] Address [address] [place] [address] Care Team Providers Care Physician Assistant Certified Name Role Phone [facility], [facility] Primary Care Provider U ben Encounter Details Date Type Department Care Team (Latest Contact Info) Description 02/23/2005 Inpatient Historical HIS [place] [id number] 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 Gender Identity Not on file Sexual Orientation Not on file documented as of this encounter Plan of Treatment Not on file documented as of this encounter Procedures Procedure Name Priority Date/Time Associated Diagnosis Comments URINALYSIS W/REFLEX MICROSCOPIC Routine 02/24/2005 10:07 AM CDT CBC WITH DIFFERENTIAL Routine 02/24/2005 7:25 AM CDT CBC WITH DIFFERENTIAL Routine 02/24/2005 7:25 AM CDT URIC ACID Routine 02/24/2005 7:25 AM CDT AST Routine 02/24/2005 7:25 AM CDT LACTATE DEHYDROGENASE Routine 02/24/2005 7:25 AM CDT DIC PROFILE Routine 02/23/2005 9:30 AM CDT CBC WITH DIFFERENTIAL Routine 02/23/2005 9:30 AM CDT CBC WITH DIFFERENTIAL Routine 02/23/2005 9:30 AM CDT URIC ACID Routine 02/23/2005 9:30 AM CDT AST Routine 02/23/2005 9:30 AM CDT LACTATE DEHYDROGENASE Routine 02/23/2005 9:30 AM CDT URINALYSIS WITH REFLEX CULTURE Routine 02/23/2005 9:00 AM CDT URINALYSIS W/REFLEX MICROSCOPIC Routine 02/23/2005 9:00 AM CDT documented in this encounter Results * (ABNORMAL) URINALYSIS (02/24/2005 10:07 AM CDT) COLOR UA Yellow INTERFACE SYSTEM CLARITY UA Slt. Cloudy(A) Clear INTERFACE SYSTEM SPECIFIC GRAVITY UA 1.005 1.001 - 1.035 INTERFACE SYSTEM PH UA 5.5 5.0 - 8.0 INTERFACE SYSTEM LEUKOCYTE ESTERASE UA 1+(A) Negative INTERFACE SYSTEM NITRITE UA Negative Negative INTERFACE SYSTEM PROTEIN UA Negative Negative INTERFACE SYSTEM GLUCOSE UA Negative Negative INTERFACE SYSTEM KETONES UA Trace(A) Negative INTERFACE SYSTEM UROBILINOGEN UA <1 <1 mg/dL INTE RFACE SYSTEM BILIRUBIN UA Negative Negative INTERFA CE SYSTEM BLOOD UA 3+(A) Negative INTERFACE SYSTEM WBC UA 9(H) 0 - 5 /HPF INTERFACE SYSTEM RBC UA >100(H) 0 - 4 /HPF INTERFACE SYSTEM BACTERIA UA 2+(A) None Seen /HPF INTERFACE SYSTEM AMORPHOUS CRYSTAL Rare /HPF INTERFACE SYSTEM WBC CLUMPS present INTERFACE SYSTEM 02/24/2005 10:0 7 AM CDT Jarek Nunez MD URINE ORDERABLES Final Result INTERFACE SYSTEM Refer to clinic/hospital department * (ABNORMAL) CBC WITH DIFFERENTIAL (02/24/2005 7:25 AM CDT) NEUTROPHILS 84(H) 45 - 70 % INTERFAC E SYSTEM LYMPHOCYTES 9(L) 16 - 45 % INTERFAC E SYSTEM MONOCYTES 6 3 - 13 % INTERFACE SYSTEM EOSINOPHILS 0 0 - 7 % INTERFAC E SYSTEM BASOPHILS 0 0 - 2 % INTERFACE SYSTEM NEUTROPHIL ABSOLUTE 10.99(H) 1.90 - 7.00 K/uL INTERFACE SYSTEM LYMPHOCYTE ABSOLUTE 1.20 0.70 - 4.50 K/uL INTERFACE SYSTEM MONOCYTE ABSOLUTE 0.78 0.10 - 1.30 K/uL INTERFACE SYSTEM EOSINOPHIL ABSOLUTE 0.04 0.00 - 0.70 K/uL INTERFACE SYSTEM BASOPHILS ABSOLUTE 0.01 0.00 - 0.20 K/uL INTERFACE SYSTEM 02/24/2005 7:25 AM CDT Jarek Nunez MD HEMATOLOGY ORDERABLES Final Res ult Performing Organization Address [facility] de Phone Number INTERFACE SYSTEM Refer to clinic/hospital department * (ABNORMAL) CBC WITH DIFFERENTIAL (02/24/2005 7:25 AM CDT) Pathologist [facility] WBC 13.0(H) 4.0 - 9.8 K/uL INTERFACE SYSTEM RBC 3.45(L) 3.90 - 4.90 M/uL INTERFACE SYSTEM HEMOGLOBIN 11.8 11.8 - 14.8 g/dL INTERFACE SYSTEM HEMATOCRIT 33.9(L) 35.5 - 44.0 % INTERFACE SYSTEM MCV 98.3 82.0 - 99.0 fL INTERFACE SYSTEM MCH 34.2(H) 27.2 - 32.6 pg INTERFACE SYSTEM MCHC 34.8 31.5 - 35.5 % INTERFACE SYSTEM RDW 13.7 11.5 - 14.5 % INTERFACE SYSTEM RDW-STDEV 48.5 37.1 - 48.7 fL INTERFACE SYSTEM PLATELETS 151 140 - 350 K/uL INTERFACE SYSTEM MPV 10.6 9.3 - 12.4 fL INTERFACE SYSTEM 02/24/2005 7:25 AM CDT Jarek Nunez MD HEMATOLOGY ORDERABLES Final Res ult Performing Organization Address [facility] de Phone Number INTERFACE SYSTEM Refer to clinic/hospital department * (ABNORMAL) LACTATE DEHYDROGENASE (02/24/2005 7:25 AM CDT) LD (LACTATE DEHYDROGENASE) 235(H) 135 - 214 U/L INTERFACE SYSTEM 02/24/2005 7:25 AM CDT Jarek Nunez MD CHEMISTRY ORDERABLES Final Resu lt Performing Organization Address [facility] Phone Number INTERFACE SYSTEM Refer to clinic/hospital department * AST (02/24/2005 7:25 AM CDT) AST 26 12 - 32 U/L INTERFAC E SYSTEM 02/24/2005 7:25 AM CDT us Jarek Nunez MD CHEMISTRY ORDERABLES Final Resu lt Performing Organization Address [facility] Phone Number INTERFACE SYSTEM Refer to clinic/hospital department * (ABNORMAL) URIC ACID (02/24/2005 7:25 AM CDT) URIC ACID 6.8(H) 2.3 - 6.6 mg/dL INTERFACE SYSTEM 02/24/2005 7:2 5 AM CDT us Jarek Nunez MD CHEMISTRY ORDERABLES Final Resu lt Performing Organization Address [facility] Phone Number INTERFACE SYSTEM Refer to clinic/hospital department * (ABNORMAL) CBC WITH DIFFERENTIAL (02/23/2005 9:30 AM CDT) NEUTROPHILS 84(H) 45 - 70 % INTERFAC E SYSTEM LYMPHOCYTES 11(L) 16 - 45 % INTERFAC E SYSTEM MONOCYTES 5 3 - 13 % INTERFACE SYSTEM EOSINOPHILS 0 0 - 7 % INTERFAC E SYSTEM BASOPHILS 0 0 - 2 % INTERFACE SYSTEM NEUTROPHIL ABSOLUTE 9.09(H) 1.90 - 7.00 K/uL INTERFACE SYSTEM LYMPHOCYTE ABSOLUTE 1.17 0.70 - 4.50 K/uL INTERFACE SYSTEM MONOCYTE ABSOLUTE 0.50 0.10 - 1.30 K/uL INTERFACE SYSTEM EOSINOPHIL ABSOLUTE 0.02 0.00 - 0.70 K/uL INTERFACE SYSTEM BASOPHILS ABSOLUTE 0.01 0.00 - 0.20 K/uL INTERFACE SYSTEM 02/23/2005 9:30 AM CDT Jarek Nunez MD HEMATOLOGY ORDERABLES Final Res ult Performing Organization Address [facility] Phone Number INTERFACE SYSTEM Refer to clinic/hospital department * (ABNORMAL) CBC WITH DIFFERENTIAL (02/23/2005 9:30 AM CDT) WBC 10.8(H) 4.0 - 9.8 K/uL INTERFACE SYSTEM RBC 3.93 3.90 - 4.90 M/uL INTERFACE SYSTEM HEMOGLOBIN 13.6 11.8 - 14.8 g/dL INTERFACE SYSTEM HEMATOCRIT 37.8 35.5 - 44.0 % INTERFACE SYSTEM MCV 96.2 82.0 - 99.0 fL INTERFACE SYSTEM MCH 34.6(H) 27.2 - 32.6 pg INTERFACE SYSTEM MCHC 36.0(H) 31.5 - 35.5 % INTERFACE SYSTEM RDW 13.2 11.5 - 14.5 % INTERFACE SYSTEM RDW-STDEV 45.8 37.1 - 48.7 fL INTERFACE SYSTEM PLATELETS 173 140 - 350 K/uL INTERFACE SYSTEM MPV 10.7 9.3 - 12.4 fL INTERFACE SYSTEM 02/23/2005 9:30 AM CDT Jarek Nunez MD HEMATOLOGY ORDERABLES Final Res ult Performing Organization Address [facility] Phone Number INTERFACE SYSTEM Refer to clinic/hospital department * (ABNORMAL) DIC PROFILE (02/23/2005 9:30 AM CDT) PROTIME 13.7 12.9 - 15.7 Seconds INTERFACE SYSTEM INR 1.0 0.9 - 1.1 INTERFACE SYSTEM Comment: INR Therapeutic Range: Adult: 2.0 - 3.0 for pulmonary embolism or prophylaxis against venous thrombosis or systemic embolization. 2.0 - 3.0 for patients with tissue heart valves. 2.5 - 3.5 for patients with mechanical heart valves or post [place]. Pediatric (12 years and under): 1.5 - 3.0 Although the target range in children is not well established , INR values of 1.5 - 3.0 are recommended for most patients. Higher values have been used in children with prosthetic cardiac valves and hereditary clotting disorders. (<3 days) therapeutic ranges have not been established. PTT 30.3 25.0 - 35.0 Seconds INTERFACE SYSTEM Comment: PTT Therapeutic Range: Heparin Level PTT (seconds) <0.10 units/mL <45 0.10 - 0.30 units/mL 45 - 65 0.30 - 0.70 units/mL* 65 - 106* 0.70 - 1.00 units/mL 106 - 137 *corresponds to therapeutic range for unfractionated heparin FIBRINOGEN 488(H) 194 - 436 mg/dL INTERFACE SYSTEM D-DIMER QUANT 1.01(H) <=0.42 ug/mL FEU INTERFACE SYSTEM Comment: DVT Screen reference range <0.45 ug/mL FEU D. Dimer Interpretation: The reference range is not clearly established in uncomplicated pregnanc ies. Values above the upper limit of the reference range are common from the 31st to 40th week of . High negative predictive values for DVT have been reported with the current methodology, as part of a comprehensive medical examination, including risk stratification. 02/23/2005 9:30 AM CDT Jarek Nunez MD HEMATOLOGY ORDERABLES Final Res ult Performing Organization Address [facility] Phone Number INTERFACE SYSTEM Refer to clinic/hospital department * (ABNORMAL) URIC ACID (02/23/2005 9:30 AM CDT) URIC ACID 6.8(H) 2.3 - 6.6 mg/dL INTERFACE SYSTEM 02/23/2005 9:30 AM CDT Jarek Nunez MD CHEMISTRY ORDERABLES Final Resu lt Performing Organization Address [facility] Phone Number INTERFACE SYSTEM Refer to clinic/hospital department * (ABNORMAL) LACTATE DEHYDROGENASE (02/23/2005 9:30 AM CDT) LD (LACTATE DEHYDROGENASE) 216(H) 135 - 214 U/L INTERFACE SYSTEM 02/23/2005 9:30 AM CDT Jarek Nunez MD CHEMISTRY ORDERABLES Final Resu lt Performing Organization Address [facility] Phone Number INTERFACE SYSTEM Refer to clinic/hospital department * AST (02/23/2005 9:30 AM CDT) AST 17 12 - 32 U/L INTERFAC E SYSTEM 02/23/2005 9:30 AM CDT Jarek Nunez MD CHEMISTRY ORDERABLES Final Resu lt Performing Organization Address [facility] Phone Number INTERFACE SYSTEM Refer to clinic/hospital department * URINALYSIS (02/23/2005 9:00 AM CDT) COLOR UA Colorless INTERFACE SYSTEM CLARITY UA Clear Clear INTERFACE SYSTEM SPECIFIC GRAVITY UA 1.005 1.001 - 1.035 INTERFACE SYSTEM PH UA 7.0 5.0 - 8.0 INTERFACE SYSTEM LEUKOCYTE ESTERASE UA Negative Negative INTERFACE SYSTEM NITRITE UA Negative Negative INTERFACE SYSTEM PROTEIN UA Negative Negative INTERFACE SYSTEM GLUCOSE UA Negative Negative INTERFACE SYSTEM KETONES UA Negative Negative INTERFACE SYSTEM UROBILINOGEN UA <1 <1 mg/dL INTE RFACE SYSTEM BILIRUBIN UA Negative Negative INTERFA CE SYSTEM BLOOD UA Negative Negative INTERFACE SYSTEM 02/23/2005 9:00 AM CDT Jarek Nunez MD URINE ORDERABLES Final Result Performing Organization Address [facility] Phone Number INTERFACE SYSTEM Refer to clinic/hospital department * URINALYSIS WITH REFLEX CULTURE (02/23/2005 9:00 AM CDT) URINE CULTURE ORDER Not indicated INTERFACE SYSTEM Comment: Criteria for a reflex culture include one or more of the following: Abn ormal nitrite, leukocyte esterase, WBCs or RBCs. Lack of qualifying criteria does not exclude the possiblity of a urinary tract infection. Dilute urine, drug interference, etc. may decrease the sensitivity of the criteria analytes. 02/23/2005 9:00 AM CDT Jarek Nunez MD URINE ORDERABLES Final Result INTERFACE SYSTEM Refer to clinic/hospital department documented in this encounter Visit Diagnoses Diagnosis Other injury to pelvic organs, with delivery- Primary documented in this encounter Care Teams Physician Assistant Certified Relationship Specialty Start Date End Date [facility], External Provider [address] [place] [address] PCP - General 08/09/10 documented as of this encounter
--- OUTSIDE RECORDS SUMMARY | 2024-12-11 01:11 | XMS_ITS | Encounter Summary ---
Author Organization [facility] Address [address] [place] [address] Care Team Providers Care Nitriles Lab Technician Name Role Phone [facility], External Provider Primary Care Provider U ben Encounter Details Date Type Department Care Team (Latest Contact Info) Description 02/12/2006 Outpatient Historical [facility] [place] [address] [address] [place] [address] [place] 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 Gender Identity Not on file Sexual Orientation Not on file documented as of this encounter Plan of Treatment Not on file documented as of this encounter Procedures Procedure Name Priority Date/Time Associated Diagnosis Comments PROGESTERONE Routine 02/12/2006 2:15 PM CDT HCG QUANTITATIVE, BLOOD Routine 02/12/2006 2:12 PM CDT documented in this encounter Results * PROGESTERONE (02/12/2006 2:15 PM CDT) PROGESTERONE 25.1 ng/mL INTERFA CE SYSTEM Comment: Progesterone Reference Range: Female: Normally Menstruating Female Follicular Phase 0.2 - 1.5 ng/mL Ovulation Phase 0.8 - 3.0 ng/mL Luteal Phase 1.7 - 27.0 ng/mL Postmenopausal 0.1 - 0.8 ng/mL No Pediatric Reference Range Available. 02/12/2006 2:15 PM CDT us Jarek Nunez MD CHEMISTRY ORDERABLES Final Resu lt Performing Organization Address [facility] [place] Phone Number INTERFACE SYSTEM Refer to clinic/hospital department * (ABNORMAL) HCG QUANTITATIVE, BLOOD (02/12/2006 2:12 PM CDT) HCG QUANT, BLOOD 141(H) 0 - 5 mIU/mL INTERFACE SYSTEM Comment: [...] test and correlated with other clinical evidence. 02/12/2006 2:12 PM CDT us Jarek Nunez MD CHEMISTRY ORDERABLES Final Resu lt Performing Organization Address [facility] [place] Phone Number INTERFACE SYSTEM Refer to clinic/hospital department documented in this encounter Visit Diagnoses Diagnosis Threatened , antepartum- Primary documented in this encounter Care Teams Nitriles Lab Technician Relationship Specialty Start Date End Date [facility], External Provider [address] [place], [place] [address] PCP - General 08/09/10 documented as of this encounter
--- OUTSIDE RECORDS SUMMARY | 2024-12-11 01:11 | XMS_ITS | Encounter Summary ---
Author Organization [facility] Address [address] [place] [address] Care Team Providers Care Emergency Medical Service Manager Name Role Phone [facility] Primary Care Provider Ele contreras Encounter Details Date Type Department Care Team (Late st Contact Info) Description 03/05/2006 Outpatient Historical [facility] [place] [address] [place] [address] [place] [address] 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 Gender Identity Not on file Sexual Orientation Not on file documented as of this encounter Last Filed Vital Signs Vital Sign Reading Time Taken Comments Blood Pressure 124/84 03/05/2006 3:15 PM CDT Pulse - - Temperature - - Respiratory Rate - - Oxygen Saturation - - Inhaled Oxygen Concentration - - Weight 98.9 kg (218 lb) 03/05/2006 3:15 PM CDT Height - - Body Mass Index 34.92 04/27/2004 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
--- OUTSIDE RECORDS SUMMARY | 2024-12-11 01:11 | XMS_ITS | Encounter Summary ---
Author Organization [facility] Address [address] [place] [address] Care Team Providers Care Android Software Engineer Name Role Phone [facility], External Provider Primary Care Provider Ele contreras Encounter Details Date Type Department Care Team (Latest Contact Info) Description 04/17/2005 Outpatient [place] [address] 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 Gender Identity Not on file Sexual Orientation Not on file documented as of this encounter Plan of Treatment Not on file documented as of this encounter Procedures Procedure Name Priority Date/Time Associated Diagnosis Comments TSH Routine 04/17/2005 3:57 PM ASSEMBLER 1ST SHIFT documented in this encounter Results * TSH (04/17/2005 3:57 PM ASSEMBLER 1ST SHIFT) TSH 0.50 0.27 - 4.20 uU/mL INTERFACE SYSTEM 04/17/2005 3:57 PM ASSEMBLER 1ST SHIFT us Jarek Nunez MD CHEMISTRY ORDERABLES Final Resu lt INTERFACE SYSTEM Refer to clinic/hospital department documented in this encounter Visit Diagnoses Diagnosis Unspecified hypothyroidism- Primary documented in this encounter Care Teams Android Software Engineer Relationship Specialty Start Date End Date Demond, External Provider [address] [place] [address] PCP - General 08/09/10 documented as of this encounter
--- OUTSIDE RECORDS SUMMARY | 2024-12-11 01:11 | XMS_ITS | Encounter Summary ---
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
--- OUTSIDE RECORDS SUMMARY | 2024-12-11 01:11 | XMS_ITS | Encounter Summary ---
Author Organization [facility] Address [address] [place] [address] Care Team Providers Care Syrup Filterer Name Role Phone [facility], [facility] Provider Primary Care Provider Ele contreras Encounter Details Date Type Department Care Team (Late st Contact Info) Description 10/07/2004 Outpatient Historical [facility] [place] [address] [place] [address] [place] [address] 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 [place] [address] PCP - General 08/09/10 documented as of this encounter
--- OUTSIDE RECORDS SUMMARY | 2024-12-11 01:11 | XMS_ITS | Encounter Summary ---
Author Organization [facility] Address [address] [place] [address] Care Team Providers Care District Service Manager Name Role Phone [facility] Primary Care Provider Ele contreras Encounter Details Date Type Department Care Team (Late st Contact Info) Description 02/12/2006 Outpatient Historical [facility] [place] [address] [place] [address] [place] [address] 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
--- OUTSIDE RECORDS SUMMARY | 2024-12-11 01:11 | XMS_ITS | Encounter Summary ---
Author Organization [facility] Address [address] [place] [address] Care Team Providers Care Outbound Telemarketer Name Role Phone [facility] Primary Care Provider Ele contreras Encounter Details Date Type Department Care Team (Late st Contact Info) Description 09/30/2004 Outpatient Historical [facility] [place] [address] [place] [address] [place] 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, [place] [address] PCP - General 08/09/10 documented as of this encounter
--- OUTSIDE RECORDS SUMMARY | 2024-12-11 01:11 | XMS_ITS | Encounter Summary ---
Author Organization [facility] Address [address] [place] [address] Care Team Providers Care Load Tallier Name Role Phone [facility] Primary Care Provider Ele contreras Encounter Details Date Type Department Care Team (Late st Contact Info) Description 01/17/2007 Outpatient Historical [facility] [place] [address] [place] [address] [place] 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
--- OUTSIDE RECORDS SUMMARY | 2024-12-11 01:11 | XMS_ITS | Encounter Summary ---
Author Organization [facility] Address [address] [place] [address] Care Team Providers Care Supply Requirements Officer Name Role Phone [facility] Primary Care Provider Ele contreras Encounter Details Date Type Department Care Team (Late st Contact Info) Description 09/27/2004 Outpatient Historical [facility] [place] [address] [address] [place] [address] [place] [address] 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
--- OUTSIDE RECORDS SUMMARY | 2024-12-11 01:11 | XMS_ITS | Clinical Summary ---
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 90 Tab 3 09/29/2008 Active Vit 53-Gomw-DV-DSS (ADVANCED ) 90-1-50 mg Oral Tab Take 1 Tab by mouth daily. 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 04/25/2006 Threatened , antepartum 06/30/2004 Unspecified hypothyroidism 05/10/2004 Obesity, unspecified 05/10/2004 Abnormal glandular Papanicolaou smear of cervix 05/10/2004 Resolved Problems Problem Noted Date Diagnosed Date Resolved Date Supervision of other normal 08/01/2006 09/29/2008 Absence of menstruation 07/11/200609/2008 examination or mari t, positive result 03/05/2006 09/29/2008 Routine follow-up 04/17/2005 09/29/2008 Second-degree perineal laceration, 03/22/2009/29/2008 Rash and other nonspecific skin eruption 12/28/2004 09/29/2008 with other poor ob stetric history(V23.49) 12/09/2004 09/29/2008 Other specified complication , antepartum(646.83) 09/13/2004 09/29/2008 Headache(784.0) 07/15/2004 09/29/2008 Supervision of normal first 06/21/2004 09/29/2008 Other disorder of menstruati on and other abnormal bleeding from female genital tract 04/27/2004 09/29/2008 Female infertility of unspecified origin 04/27/2004 09/29/2008 Immunizations Immunization Administration Dates Next Due (ADACEL/BOOSTRIX)(10 YR UP) TDAP VACCINE, 0.5ML, IM 09/03/2010 Family History Medical History Relation Name Comments Cancer Father bladder and ski n Heart Disease Father Breast Cancer Mother Relation Name Status Comments Father Alive Mother Alive Social History Tobacco Use Types Packs/Day Years Used Date Smoking Tobacco: Never Alcohol Use Standard Drinks/Week Comments No 0 (1 standard drink = 0.6 oz pur e alcohol) Comments Unknown Sex and Gender Information Value Date Recorded Sex Assigned at Not on file Legal Sex Female 5:25 AM ANALYTICAL STATISTICIAN Gender Identity Not on file Sexual Orientation Not on file Last Filed Vital Signs Vital Sign Reading Time Taken Comments Blood Pressure 119/74 09/04/2010 7:00 AM CDT Pulse 76 09/04/2010 7:00 AM CDT Temperature 36.4 C (97.6 F) 09/04/2010 7:00 AM CDT Respiratory Rate 18 09/04/2010 7:00 AM CDT Oxygen Saturation 98% 09/02/2010 10:22 AM CDT Inhaled Oxygen Concentration - - Weight 110.2 kg (243 lb) 09/02/2010 9:18 AM CDT Height 170.2 cm (5' 7) 09/02/2010 9:18 AM CDT Body Mass Index 38.06 09/02/2010 9:18 AM CDT Plan of Treatment Health Maintenance Due Date Last Done Comments HEPATITIS B VACCINES (1 of 3 - 19+ 3-dose series) 09/1990 HPV/Cotest (21-29) 1992 CERVICAL CANCER SCREENING 2001 HPV/Cotest (30-65) 2001 PAP SMEAR 2001 BREAST CANCER SCREENING 2011 COLORECTAL SCREENING 2016 Colorectal Cancer Screening 2016 FIT-DNA Q 3 years 2016 FIT/FOBT Q 1 year 2016 Flex Sig/CT Colonography Q 5 years 2016 DTAP/TDAP/TD VACCINES (2 - Td or Tdap) 09/03/2020 ZOSTER VACCINE (1 of 2) 2021 INFLUENZA VACCINE (#1) [address] [place] [address] OPEN ACCESS HMO Advance Directives For more information, please contact: [phone] * Full Code (Latest Code Status on File) Date Activated Date Inactivated Comments 09/02/2010 3:46 PM 09/04/2010 1:51 PM * Full Code Date Activated Date Inactivated Comments 09/02/2010 9:29 AM 09/02/2010 3:34 PM * Full Code Date Activated Date Inactivated Comments 09/02/2010 9:25 AM 09/02/2010 9:29 AM Care Teams Brick Shader Relationship Specialty Start Date End Date [facility], External Provider [address] [place] [place] [address] PCP - General 08/09/10
--- OUTSIDE RECORDS SUMMARY | 2024-12-11 01:11 | XMS_ITS | Encounter Summary ---
Author Organization [facility] Address [address] [place] [address] Care Team Providers Care Rn Clinician Name Role Phone [facility] Primary Care Provider Ele contreras Encounter Details Date Type Department Care Team (Late st Contact Info) Description 09/30/[address] [facility] [place] [address] [place] [address] [place] [address] [address] [place] [address] Social History Tobacco Use Types Packs/Day Years Used Date Smoking Tobacco: Never Assessed Comments Unknown Sex and Gender Information Value Date Recorded Sex Assigned at Not on file Legal Sex Female 5:25 AM MAST MAKER Gender Identity Not on file Sexual Orientation Not on file documented as of this encounter Plan of Treatment Not on file documented as of this encounter Visit Diagnoses Not on filedocumented in this encounter Care Teams Rn Clinician Relationship Specialty Start Date End Date [facility] [place] [address] PCP - General 08/09/10 documented as of this encounter
--- OUTSIDE RECORDS SUMMARY | 2024-12-11 01:11 | XMS_ITS | Encounter Summary ---
Author Organization [facility] Address [address] [place] [address] Care Team Providers Care Solid Tire Tuber Machine Operator Name Role Phone [facility] Primary Care Provider Ele contreras Encounter Details Date Type Department Care Team (Late st Contact Info) Description 06/07/2001 Outpatient Historical [facility] Primary Care - [address] [id number] Flavio Morrison MD NO ADDRESS ON FILE Social History Tobacco Use Types Packs/Day Years Used Date Smoking Tobacco: Never Assessed Comments Unknown Sex and Gender Information Value Date Recorded Sex Assigned at Not on file Legal Sex Female 5:25 AM 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
--- OUTSIDE RECORDS SUMMARY | 2024-12-11 01:11 | XMS_ITS | Encounter Summary ---
Author Organization [facility] Address [address] [place] [address] Care Team Providers Care Back Shoe Operator Name Role Phone [facility], [facility] Provider Primary Care Provider Ele contreras Encounter Details Date Type Department Care Team (Latest Contact Info) Description 11/25/2004 Outpatient Historical [facility] [place] [address] [address] [place] [address] SUPERVIS NORMAL 1ST PREG (Primary Dx) Social History Tobacco Use Types Packs/Day Years Used Date Smoking Tobacco: Never Assessed Comments Unknown Sex and Gender Information Value Date Recorded Sex Assigned at Not on file Legal Sex Female 5:25 AM ORE MIXER Gender Identity Not on file Sexual Orientation Not on file documented as of this encounter Last Filed Vital Signs Vital Sign Reading Time Taken Comments Blood Pressure 124/78 11/25/2004 9:00 AM CDT Pulse - - Temperature - - Respiratory Rate - - Oxygen Saturation - - Inhaled Oxygen Concentration - - Weight 101.2 kg (223 lb) 11/25/2004 9:00 AM CDT Height - - Body Mass Index 35.72 04/27/2004 10:30 AM ORE MIXER documented in this encounter Plan of Treatment Not on file documented as of this encounter Procedures Procedure Name Priority Date/Time Associated Diagnosis Comments GLUCOSE TOLERANCE 1 HR GESTATIONAL Routine 11/25/2004 10:00 AM CDT CBC WITH DIFFERENTIAL Routine 11/25/2004 10:00 AM CDT CBC WITH DIFFERENTIAL Routine 11/25/2004 10:00 AM CDT TSH Routine 11/25/2004 10:00 AM CDT documented in this encounter Results * (ABNORMAL) CBC WITH DIFFERENTIAL (11/25/2004 10:00 AM CDT) NEUTROPHILS 81(H) 45 - 70 % INTERFAC E SYSTEM LYMPHOCYTES 13(L) 16 - 45 % INTERFAC E SYSTEM MONOCYTES 6 3 - 13 % INTERFACE SYSTEM EOSINOPHILS 1 0 - 7 % INTERFAC E SYSTEM BASOPHILS 0 0 - 2 % INTERFACE SYSTEM NEUTROPHIL ABSOLUTE 6.88 1.90 - 7.00 K/uL INTERFACE SYSTEM LYMPHOCYTE ABSOLUTE 1.12 0.70 - 4.50 K/uL INTERFACE SYSTEM MONOCYTE ABSOLUTE 0.47 0.10 - 1.30 K/uL INTERFACE SYSTEM EOSINOPHIL ABSOLUTE 0.06 0.00 - 0.70 K/uL INTERFACE SYSTEM BASOPHILS ABSOLUTE 0.01 0.00 - 0.20 K/uL INTERFACE SYSTEM 11/25/2004 10:0 0 AM CDT Jarek Nunez MD HEMATOLOGY ORDERABLES Final Res ult INTERFACE SYSTEM Refer to clinic/hospital department * (ABNORMAL) CBC WITH DIFFERENTIAL (11/25/2004 10:00 AM CDT) Pathologist [facility] WBC 8.5 4.0 - 9.8 K/uL INTERFACE SYSTEM RBC 3.79(L) 3.90 - 4.90 M/uL INTERFACE SYSTEM HEMOGLOBIN 13.2 11.8 - 14.8 g/dL INTERFACE SYSTEM HEMATOCRIT 37.7 35.5 - 44.0 % INTERFACE SYSTEM MCV 99.5(H) 82.0 - 99.0 fL INTERFACE SYSTEM MCH 34.8(H) 27.2 - 32.6 pg INTERFACE SYSTEM MCHC 35.0 31.5 - 35.5 % INTERFACE SYSTEM RDW 13.2 11.5 - 14.5 % INTERFACE SYSTEM RDW-STDEV 47.7 37.1 - 48.7 fL INTERFACE SYSTEM PLATELETS 172 140 - 350 K/uL INTERFACE SYSTEM MPV 11.1 9.3 - 12.4 fL INTERFACE SYSTEM 11/25/2004 10:0 0 AM CDT us Jarek Nunez MD HEMATOLOGY ORDERABLES Final Res ult Performing Organization Address [facility] Phone Number INTERFACE SYSTEM Refer to clinic/hospital department * TSH (11/25/2004 10:00 AM CDT) TSH 1.69 0.27 - 4.20 uU/mL INTERFACE SYSTEM 11/25/2004 10:0 0 AM CDT Jarek Nunez MD CHEMISTRY ORDERABLES Final Resu lt Performing Organization Address [facility] Phone Number INTERFACE SYSTEM Refer to clinic/hospital department * GLUCOSE TOLERANCE 1 HR GESTATIONAL (11/25/2004 10:00 AM CDT) GLUCOSE 1 HR OBSTETRIC 93 65 - 139 mg/dL INTERFACE SYSTEM 11/25/2004 10:0 0 AM CDT Jarek Nunez MD CHEMISTRY ORDERABLES Final Resu lt Performing Organization Address [facility] Phone Number INTERFACE SYSTEM Refer to clinic/hospital department documented in this encounter Visit Diagnoses Diagnosis Supervision of normal first - Primary documented in this encounter Care Teams Back Shoe Operator Relationship Specialty Start Date End Date [facility], External Provider [address] [place] [address] PCP - General 08/09/10 documented as of this encounter
--- OUTSIDE RECORDS SUMMARY | 2024-12-11 01:11 | XMS_ITS | Encounter Summary ---
Author Organization [facility] Address [address] [place] [address] Care Team Providers Care Qc Chemist Name Role Phone [facility] Primary Care Provider Ele contreras Encounter Details Date Type Department Care Team (Latest Contact Info) Description 02/15/2007 Outpatient Historical [facility] [place] [address] [place] [address] [place] [address] 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 Gender Identity Not on file Sexual Orientation Not on file documented as of this encounter Last Filed Vital Signs Vital Sign Reading Time Taken Comments Blood Pressure 120/84 02/15/2007 8:15 AM CDT Pulse - - Temperature - - Respiratory Rate - - Oxygen Saturation - - Inhaled Oxygen Concentration - - Weight - - Height - - Body Mass Index - - documented in this encounter Plan of Treatment Not on file documented as of this encounter Visit Diagnoses Diagnosis Supervision of other normal - Primary documented in this encounter Care Teams Qc Chemist Relationship Specialty Start Date End Date Demond, External [place] [address] PCP - General 08/09/10 documented as of this encounter
--- OUTSIDE RECORDS SUMMARY | 2024-12-11 01:11 | XMS_ITS | Continuity of Care Document ---
Author Organization [facility] Address [address] [place] [address] [address] [place] [address] Phone Care Team Providers Care Control Panel Operator Crude Unit Name Role Phone Evans OD, Bernardo Unavailable Unavailable Procedures Procedure Date CL Replacement - Vistakon Disp W/BW Soft Tax - Medical Eye Exam, New Patient Refraction Advance Directives Directive Yes / No Effective Date File Name No Information Encounters Encounter Description Practice Location Reason(s) For Visit Diagnoses Date Provider Providers Copied on Encounter [facility], [address] [place] [address] [address], [place], [place], [id number], [place] tel:[phone] [facility] No Information 3-200 7 Evans OD Bernardo. [address] [facility] , [address], [place], [address], [place]. tel:[phone] [facility], [address] [place] [address] [address], [place], [place], [id number], [place] tel:[phone] [facility] No Information 8-200 7 Evans OD Bernardo. [address] [facility] , [address], [place], [address], [place]. tel:[phone] Family History Family Member Type Diagnosis Age At Onset No Information Payers Payer name Insurance type Covered green party ID Authoriza tion(s) No Information Social History Type Description Quantity Date Captured Comments Sex Female Smoking Status No Information Chief Complaint And Reason For Visit No Information Reason For Referral Reason For Referral No Information History Of Present Illness Encounter Date Complaint History Of Prese nt Illness No Information Functional Status Date Functional Assessmen t No Information Instructions Date Instruction Additional Infor mation No Information Assessments Type Assessment Date No Information Patient Care Teams Name Effective Dates (start - stop) Status Members No Information
--- OUTSIDE RECORDS SUMMARY | 2024-12-11 01:11 | XMS_ITS | Encounter Summary ---
Author Organization [facility] Address 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) Social History Tobacco Use Types Packs/Day Years Used Date Smoking Tobacco: Never Assessed Comments Unknown Sex and Gender Information Value Date Recorded Sex Assigned at Not on file Legal Sex Female 5:25 AM PAPERBOARD BOX MAKER Gender Identity Not on file Sexual Orientation Not on file documented as of this encounter Plan of Treatment Not on file documented as of this encounter Visit Diagnoses Diagnosis Toxic diffuse goiter without mention of thyrotoxic crisis or storm- Primary documented in this encounter Care Teams Project Coordinator Rn Relationship Specialty Start Date End Date Sloan, External [place] [address] PCP - General 08/09/10 documented as of this encounter
--- OUTSIDE RECORDS SUMMARY | 2024-12-11 01:11 | XMS_ITS | Encounter Summary ---
Author Organization [facility] Address [address] [place] [address] Care Team Providers Care Humanities Teacher Name Role Phone [facility], External Provider Primary Care Provider Ele contreras Encounter Details Date Type Department Care Team (Late st Contact Info) Description 01/18/[address] 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
--- OUTSIDE RECORDS SUMMARY | 2024-12-11 01:11 | XMS_ITS | Encounter Summary ---
Author Organization [facility] Address [address] [place] [address] Care Team Providers Care Body And Frame Man Name Role Phone [facility], External Provider Primary Care Provider Ele contreras Encounter Details Date Type Department Care Team (Late st Contact Info) Description 02/21/2005 Outpatient Historical [facility] [place] [address] [place] [address] [place] [address] [address] [place] [address] Social History Tobacco Use Types Packs/Day Years Used Date Smoking Tobacco: Never Assessed Comments Unknown Sex and Gender Information Value Date Recorded Sex Assigned at Not on file Legal Sex Female 5:25 AM PUBLIC HEALTH DIRECTOR Gender Identity Not on file Sexual Orientation Not on file documented as of this encounter Plan of Treatment Not on file documented as of this encounter Visit Diagnoses Not on filedocumented in this encounter Care Teams Body And Frame Man Relationship Specialty Start Date End Date [facility] [address] PCP - General 08/09/10 documented as of this encounter
--- OUTSIDE RECORDS SUMMARY | 2024-12-11 01:11 | XMS_ITS | Encounter Summary ---
Author Organization [facility] Address [address] [place] [address] Care Team Providers Care Security Escort Name Role Phone [facility] Primary Care Provider Ele contreras Encounter Details Date Type Department Care Team (Late st Contact Info) Description 02/23/2005 Outpatient Historical [facility] Family [place] [address] [place] [address] [place] 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
--- OUTSIDE RECORDS SUMMARY | 2024-12-11 01:11 | XMS_ITS | Encounter Summary ---
Author Organization [facility] Address [address] [place] [address] Care Team Providers Care Gas Torch Solderer Name Role Phone [facility] Primary Care Provider Ele contreras Encounter Details Date Type Department Care Team (Late st Contact Info) Description 10/04/2004 Outpatient Historical [facility] Family [place] [address] [place] [address] [place] 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
--- OUTSIDE RECORDS SUMMARY | 2024-12-11 01:11 | XMS_ITS | Encounter Summary ---
Author Organization [facility] Address [address] [place] [address] Care Team Providers Care Asphalt Distributor Tender Name Role Phone [facility], [facility] Provider Primary Care Provider Ele contreras Encounter Details Date Type Department Care Team (Late st Contact Info) Description 10/28/2004 Outpatient Historical [facility] [place] [address] [place] [address] [place] [address] [address] [place] [address] Social History Tobacco Use Types Packs/Day Years Used Date Smoking Tobacco: Never Assessed Comments Unknown Sex and Gender Information Value Date Recorded Sex Assigned at Not on file Legal Sex Female 5:25 AM ADJUNCT PSYCHOLOGY FACULTY MEMBER Gender Identity Not on file Sexual Orientation Not on file documented as of this encounter Plan of Treatment Not on file documented as of this encounter Visit Diagnoses Not on filedocumented in this encounter Care Teams Asphalt Distributor Tender Relationship Specialty Start Date End Date [facility], [place] [address] PCP - General 08/09/10 documented as of this encounter
--- OUTSIDE RECORDS SUMMARY | 2024-12-11 01:11 | XMS_ITS | Encounter Summary ---
Author Organization [facility] Address [address] [place] [address] Care Team Providers Care Pole Maker Name Role Phone [facility] Provider Primary Care Provider U ben Encounter Details Date Type Department Care Team (Late st Contact Info) Description 03/28/2000 Emergency [facility], Authorized P NO ADDRESS ON FILE Acute gastritis without mention of hemorrhage (Primary Dx) Social History Tobacco Use Types Packs/Day Years Used Date Smoking Tobacco: Never Assessed Comments Unknown Sex and Gender Information Value Date Recorded Sex Assigned at Not on file Legal Sex Female 5:25 AM BREAST PULLER Gender Identity Not on file Sexual Orientation Not on file documented as of this encounter Plan of Treatment Not on file documented as of this encounter Visit Diagnoses Diagnosis Acute gastritis without mention of hemorrhage- Primary documented in this encounter Care Teams Pole Maker Relationship Specialty Start Date End Date Demond, External Provider [address] [place] [address] PCP - General 08/09/10 documented as of this encounter
--- OUTSIDE RECORDS SUMMARY | 2024-12-11 01:11 | XMS_ITS | Encounter Summary ---
Author Organization [facility] Address [address] 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
--- OUTSIDE RECORDS SUMMARY | 2024-12-11 01:11 | XMS_ITS | Encounter Summary ---
Author Organization [facility] Address [address] [place] [address] Care Team Providers Care Panel Machine Operator Name Role Phone [facility], External Provider Primary Care Provider Ele contreras Encounter Details Date Type Department Care Team (Late st Contact Info) Description 04/17/2005 Outpatient Historical [facility] [place] [address] [place] [address] [place] [address] [address] [place] [address] Social History Tobacco Use Types Packs/Day Years Used Date Smoking Tobacco: Never Assessed Comments Unknown Sex and Gender Information Value Date Recorded Sex Assigned at Not on file Legal Sex Female 5:25 AM HIDE HANDLER Gender Identity Not on file Sexual Orientation Not on file documented as of this encounter Last Filed Vital Signs Vital Sign Reading Time Taken Comments Blood Pressure 124/80 04/17/2005 3:00 PM HIDE HANDLER Pulse 76 04/17/2005 3:00 PM HIDE HANDLER Temperature 35.7 C (96.3 F) 04/17/2005 3:00 PM HIDE HANDLER Respiratory Rate 16 04/17/2005 3:00 PM HIDE HANDLER Oxygen Saturation - - Inhaled Oxygen Concentration - - Weight 97.5 kg (215 lb) 04/17/2005 3:00 PM HIDE HANDLER Height - - Body Mass Index 34.44 04/27/2004 10:30 AM HIDE HANDLER documented in this encounter Plan of Treatment Not on file documented as of this encounter Visit Diagnoses Not on filedocumented in this encounter Care Teams Panel Machine Operator Relationship Specialty Start Date End Date Demond, External [place] [address] PCP - General 08/09/10 documented as of this encounter
--- OUTSIDE RECORDS SUMMARY | 2024-12-11 01:11 | XMS_ITS | Encounter Summary ---
Author Organization [facility] Address [address] [place] [address] Care Team Providers Care Tablet Repair Name Role Phone [facility] Provider Primary Care Provider Ele contreras Encounter Details Date Type Department Care Team (Late st Contact Info) Description 02/15/2007 Outpatient Historical [facility] [place] [address] [place] [address] [place] [address] 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
--- OUTSIDE RECORDS SUMMARY | 2024-12-11 01:11 | XMS_ITS | Encounter Summary ---
Author Organization [facility] Address [address] [place] [address] Care Team Providers Care Amf Mechanic Name Role Phone [facility], [facility] Provider Primary Care Provider U vaishnaviailmarilee Encounter Details Date Type Department Care Team (Latest Contact Info) Description 03/05/2006 Outpatient Historical [facility] [place] [address] [place] [address] [place] 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 Gender Identity Not on file Sexual Orientation Not on file documented as of this encounter Plan of Treatment Not on file documented as of this encounter Procedures Procedure Name Priority Date/Time Associated Diagnosis Comments HEPATITIS B SURFACE ANTIGEN Routine 03/05/2006 4:40 PM CDT RUBELLA IGG Routine 03/05/2006 4:40 PM CDT CBC WITH DIFFERENTIAL Routine 03/05/2006 4:40 PM CDT CBC WITH DIFFERENTIAL Routine 03/05/2006 4:40 PM CDT PROGESTERONE Routine 03/05/2006 4:40 PM CDT RPR Routine 03/05/2006 4:40 PM CDT HCG QUANTITATIVE, BLOOD Routine 03/05/2006 4:40 PM CDT TSH Routine 03/05/2006 4:40 PM CDT documented in this encounter Results * (ABNORMAL) HCG QUANTITATIVE, BLOOD (03/05/2006 4:40 PM CDT) HCG QUANT, BLOOD 7,144(H) 0 - 5 mIU/mL INTERFACE SYSTEM Comment: [...] test and correlated with other clinical evidence. 03/05/2006 4:40 PM CDT us Jarek Nunez MD CHEMISTRY ORDERABLES Final Resu lt INTERFACE SYSTEM Refer to clinic/hospital department * HEPATITIS B SURFACE ANTIGEN (03/05/2006 4:40 PM CDT) HEPATITIS B SURFACE AG NON-REACT DAVID NON-REACT DAVID INTERFACE SYSTEM Comment: Lab test performed by: [facility] [address] DARNELL CROUCH MD 03/05/2006 4:40 PM CDT Jarek Nunez MD CHEMISTRY ORDERABLES Final Resu lt Performing Organization Address [facility] Phone Number INTERFACE SYSTEM Refer to clinic/hospital department * RUBELLA IGG (03/05/2006 4:40 PM CDT) [facility] RUBELLA IGG >5.00 EIA Value INTERFAC E SYSTEM Comment: EIA VALUE EXPLANATION OF TEST RESULTS --------- <0.91 NEGATIVE - NO RUBELLA IGG ANTIBODY DETECTED. 0.91 - 1.09 EQUIVOCAL > OR = 1.10 POSITIVE - RUBELLA IGG ANTIBODY DETECTED. THE PRESENCE OF RUBELLA IGG ANTIBODY SUGGESTS IMMUNIZATION OR PAST OR CURRENT INFECTION WITH RUBELLA VIRUS. Lab test performed by: [facility] [address] DARNELL CROUCH MD 03/05/2006 4:40 PM CDT Jarek Nunez MD CHEMISTRY ORDERABLES Final Resu lt Performing Organization Address [facility] Phone Number INTERFACE SYSTEM Refer to clinic/hospital department * RPR (03/05/2006 4:40 PM CDT) [facility] RPR NON-REACT DAVID NON-REACT DAVID INTERFACE SYSTEM Comment: Lab test performed by: [facility] [address] DARNELL CROUCH MD 03/05/2006 4:40 PM CDT us Jarek Nunez MD CHEMISTRY ORDERABLES Final Resu lt Performing Organization Address [facility] Phone Number INTERFACE SYSTEM Refer to clinic/hospital department * CBC WITH DIFFERENTIAL (03/05/2006 4:40 PM CDT) Pathologist [facility] NEUTROPHILS 70 45 - 70 % INTERFAC E SYSTEM LYMPHOCYTES 22 16 - 45 % INTERFAC E SYSTEM MONOCYTES 7 3 - 13 % INTERFACE SYSTEM EOSINOPHILS 1 0 - 7 % INTERFAC E SYSTEM BASOPHILS 0 0 - 2 % INTERFACE SYSTEM NEUTROPHIL ABSOLUTE 5.03 1.90 - 7.00 K/uL INTERFACE SYSTEM LYMPHOCYTE ABSOLUTE 1.55 0.70 - 4.50 K/uL INTERFACE SYSTEM MONOCYTE ABSOLUTE 0.50 0.10 - 1.30 K/uL INTERFACE SYSTEM EOSINOPHIL ABSOLUTE 0.05 0.00 - 0.70 K/uL INTERFACE SYSTEM BASOPHILS ABSOLUTE 0.02 0.00 - 0.20 K/uL INTERFACE SYSTEM 03/05/2006 4:40 PM CDT Jarek Nunez MD HEMATOLOGY ORDERABLES Final Res ult Performing Organization Address [facility] Phone Number INTERFACE SYSTEM Refer to clinic/hospital department * (ABNORMAL) CBC WITH DIFFERENTIAL (03/05/2006 4:40 PM CDT) [facility] WBC 7.2 4.0 - 9.8 K/uL INTERFACE SYSTEM RBC 4.36 3.90 - 4.90 M/uL INTERFACE SYSTEM HEMOGLOBIN 14.5 11.8 - 14.8 g/dL INTERFACE SYSTEM HEMATOCRIT 40.2 35.5 - 44.0 % INTERFACE SYSTEM MCV 92.2 82.0 - 99.0 fL INTERFACE SYSTEM MCH 33.3(H) 27.2 - 32.6 pg INTERFACE SYSTEM MCHC 36.1(H) 31.5 - 35.5 % INTERFACE SYSTEM RDW 12.9 11.5 - 14.5 % INTERFACE SYSTEM RDW-STDEV 43.1 37.1 - 48.7 fL INTERFACE SYSTEM PLATELETS 208 140 - 350 K/uL INTERFACE SYSTEM MPV 11.3 9.3 - 12.4 fL INTERFACE SYSTEM 03/05/2006 4:40 PM CDT Jarek Nunez MD HEMATOLOGY ORDERABLES Final Res ult Performing Organization Address [facility] Phone Number INTERFACE SYSTEM Refer to clinic/hospital department * TSH (03/05/2006 4:40 PM CDT) TSH 2.23 0.27 - 4.20 uU/mL INTERFACE SYSTEM 03/05/2006 4:40 PM CDT Jarek Nunez MD CHEMISTRY ORDERABLES Final Resu lt Performing Organization Address [facility] Phone Number INTERFACE SYSTEM Refer to clinic/hospital department * PROGESTERONE (03/05/2006 4:40 PM CDT) PROGESTERONE 18.1 ng/mL INTERFA CE SYSTEM Comment: Progesterone Reference Range: Female: Normally Menstruating Female Follicular Phase 0.2 - 1.5 ng/mL Ovulation Phase 0.8 - 3.0 ng/mL Luteal Phase 1.7 - 27.0 ng/mL Postmenopausal 0.1 - 0.8 ng/mL No Pediatric Reference Range Available. 03/05/2006 4:40 PM CDT Jarek Nunez MD CHEMISTRY ORDERABLES Final Resu lt Performing Organization Address [facility] Phone Number INTERFACE SYSTEM Refer to clinic/hospital department documented in this encounter Visit Diagnoses Diagnosis Threatened , antepartum- Primary documented in this encounter Care Teams Amf Mechanic Relationship Specialty Start Date End Date [facility], External Provider [address] [place] [address] PCP - General 08/09/10 documented as of this encounter
--- OUTSIDE RECORDS SUMMARY | 2024-12-11 01:11 | XMS_ITS | Encounter Summary ---
Author Organization [facility] Address [address] [place] [address] Care Team Providers Care Artificial Glass Eye Maker Name Role Phone [facility], External Provider Primary Care Provider U ben Encounter Details Date Type Department Care Team (Late st Contact Info) Description 07/08/2007 Orders Only [facility] Medicine [place] [address] [facility] [address] [place] [address] Bhumi Monge MD [address] [place] [address] Social History Tobacco Use Types Packs/Day Years Used Date Smoking Tobacco: Never Assessed Comments Unknown Sex and Gender Information Value Date Recorded Sex Assigned at Not on file Legal Sex Female 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
--- OUTSIDE RECORDS SUMMARY | 2024-12-11 01:11 | XMS_ITS | Encounter Summary ---
Author Organization [facility] Address [address] [place] [address] Care Team Providers Care Receiving Room Clerk Name Role Phone [facility], External Provider Primary Care Provider Ele contreras Encounter Details Date Type Department Care Team (Late st Contact Info) Description 02/01/2007 Outpatient Historical [facility] Family [place] [address] [place] [address] [place] 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
--- OUTSIDE RECORDS SUMMARY | 2024-12-11 01:12 | XMS_ITS | Encounter Summary ---
Author Organization [facility] Address [address] [place] [address] Care Team Providers Care Tobacco Grower Name Role Phone [facility] Primary Care Provider Ele contreras Encounter Details Date Type Department Care Team (Late st Contact Info) Description 09/23/2004 Outpatient Historical [facility]3] [place] [address] [place] [address] [place] 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
--- OUTSIDE RECORDS SUMMARY | 2024-12-11 01:12 | XMS_ITS | Encounter Summary ---
Author Organization [facility] Address [address] [place] [address] Care Team Providers Care Radio Tower Technician Name Role Phone [facility], [facility] Primary Care Provider Ele contreras Encounter Details Date Type Department Care Team (Late st Contact Info) Description 09/09/2004 Outpatient Historical [facility] Family [place] [address] [place] [address] [place] 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
--- OUTSIDE RECORDS SUMMARY | 2024-12-11 01:12 | XMS_ITS | Encounter Summary ---
Author Organization [facility] Address [address] [place] [address] Care Team Providers Care Quality Assurance Inspector Name Role Phone [facility], External Provider Primary Care Provider U ben Encounter Details Date Type Department Care Team (Late st Contact Info) Description 12/09/2004 Outpatient Historical [facility] Family Medicine [facility] [address] [facility] [address] [place] [address] Bhumi Monge MD [address] [facility] [place] [phone] Social History Tobacco Use Types Packs/Day Years Used Date Smoking Tobacco: Never Assessed Comments Unknown Sex and Gender Information Value Date Recorded Sex Assigned at Not on file Legal Sex Female 5:25 AM SPECIAL [employer]CES WARRANT OFFICER Gender Identity Not on file Sexual Orientation Not on file documented as of this encounter Plan of Treatment Not on file documented as of this encounter Visit Diagnoses Not on filedocumented in this encounter Care Teams Quality Assurance Inspector Relationship Specialty Start Date End Date [facility] [place] [address] PCP - General 08/09/10 documented as of this encounter
--- OUTSIDE RECORDS SUMMARY | 2024-12-11 01:12 | XMS_ITS | Encounter Summary ---
Author Organization [facility] Address [address] [place] [address] Care Team Providers Care Manager Nursing Home Name Role Phone [facility] Primary Care Provider Ele contreras Encounter Details Date Type Department Care Team (Late st Contact Info) Description 12/03/2006 Orders Only [facility]3] Family Medicine [place] [address] [place] [address] [place] 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
--- OUTSIDE RECORDS SUMMARY | 2024-12-11 01:12 | XMS_ITS | Encounter Summary ---
Author Organization [employer] [facility] Address [address] [place] [address] Care Team Providers Care Auto Job Estimator Name Role Phone [facility], External Provider Primary Care Provider Ele contreras Encounter Details Date Type Department Care Team (Late st Contact Info) Description 01/13/2007 Outpatient Historical [facility] [place] [place] [address] [facility] [place] [address] Social History Tobacco Use Types Packs/Day Years Used Date Smoking Tobacco: Never Assessed Comments Unknown Sex and Gender Information Value Date Recorded Sex Assigned at Not on file Legal Sex Female 5:25 AM DECK SUPERVISOR Gender Identity Not on file Sexual Orientation Not on file documented as of this encounter Plan of Treatment Not on file documented as of this encounter Visit Diagnoses Not on filedocumented in this encounter Care Teams Auto Job Estimator Relationship Specialty Start Date End Date [facility] [place] [address] PCP - General 08/09/10 documented as of this encounter
--- OUTSIDE RECORDS SUMMARY | 2024-12-11 01:12 | XMS_ITS | Encounter Summary ---
Author Organization [facility] Address [address] [place] [address] Care Team Providers Care Certified Pharmacist Assistant Name Role Phone [facility] Primary Care Provider Ele contreras Encounter Details Date Type Department Care Team (Late st Contact Info) Description 01/27/2005 Outpatient Historical [facility] [place] [address] [place] [address] [place] 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
--- OUTSIDE RECORDS SUMMARY | 2024-12-11 01:12 | XMS_ITS | Encounter Summary ---
Author Organization [facility] Address [address] [place] [address] Care Team Providers Care Anesthesiologist Name Role Phone [facility] Primary Care Provider Ele contreras Encounter Details Date Type Department Care Team (Late st Contact Info) Description 02/21/2007 Outpatient Historical [facility] Family [place] [address] [place] [address] [place] 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
--- OUTSIDE RECORDS SUMMARY | 2024-12-11 01:12 | XMS_ITS | Encounter Summary ---
Author Organization [facility] Address [address] [place] [address] Care Team Providers Care Labor And Delivery Registered Nurse Name Role Phone [facility] Primary Care Provider Ele contreras Encounter Details Date Type Department Care Team (Late st Contact Info) Description 01/23/2005 Outpatient Historical [facility] [place] [address] [place] [address] [place] 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
--- OUTSIDE RECORDS SUMMARY | 2024-12-11 01:12 | XMS_ITS | Encounter Summary ---
Author Organization [facility] Address [address] [place] [address] Care Team Providers Care Supervisor Of Communications Name Role Phone [facility] Primary Care Provider Ele contreras Encounter Details Date Type Department Care Team (Late st Contact Info) Description 11/30/2006 Outpatient Historical [facility] Family [place] [address] [place] [address] [place] [address] 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
--- OUTSIDE RECORDS SUMMARY | 2024-12-11 01:12 | XMS_ITS | Encounter Summary ---
Author Organization [facility] Address [address] [place] [address] Care Team Providers Care Medical Lab Specialist Name Role Phone [facility] Primary Care Provider Ele contreras Encounter Details Date Type Department Care Team (Late st Contact Info) Description 10/11/2006 Orders Only [facility] Family Medicine [place] [address] [place] [address] [place] 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
--- OUTSIDE RECORDS SUMMARY | 2024-12-11 01:12 | XMS_ITS | Encounter Summary ---
Author Organization [facility] Address [address] [place] [address] Care Team Providers Care Toe Puller Name Role Phone [facility] Primary Care Provider Ele contreras Encounter Details Date Type Department Care Team (Late st Contact Info) Description 01/11/2005 Outpatient Historical [facility] Family Medicine [place] [address] [facility] [address] [place] [address] Lois Thornton MD NO ADDRESS ON FILE Social History Tobacco Use Types Packs/Day Years Used Date Smoking Tobacco: Never Assessed Comments Unknown Sex and Gender Information Value Date Recorded Sex Assigned at Not on file Legal Sex Female 5:25 AM MICROBIOLOGY COORDINATOR Gender Identity Not on file Sexual Orientation Not on file documented as of this encounter Plan of Treatment Not on file documented as of this encounter Visit Diagnoses Not on filedocumented in this encounter Care Teams Toe Puller Relationship Specialty Start Date End Date [facility], External [place] [address] PCP - General 08/09/10 documented as of this encounter
--- OUTSIDE RECORDS SUMMARY | 2024-12-11 01:12 | XMS_ITS | Encounter Summary ---
Author Organization [facility] Address [address] [place] [address] Care Team Providers Care Vascular Technologist Sonographer Name Role Phone [facility], External Provider Primary Care Provider Ele contreras Encounter Details Date Type Department Care Team (Late st Contact Info) Description 09/23/2004 Outpatient Historical [facility] [place] [address] [place] [address] [place] [address] [place] [address] Social History Tobacco Use Types Packs/Day Years Used Date Smoking Tobacco: Never Assessed Comments Unknown Sex and Gender Information Value Date Recorded Sex Assigned at Not on file Legal Sex Female 5:25 AM MANAGER CLINICAL INFORMATICS Gender Identity Not on file Sexual Orientation Not on file documented as of this encounter Plan of Treatment Not on file documented as of this encounter Visit Diagnoses Not on filedocumented in this encounter Care Teams Vascular Technologist Sonographer Relationship Specialty Start Date End Date [facility] [address] PCP - General 08/09/10 documented as of this encounter
--- OUTSIDE RECORDS SUMMARY | 2024-12-11 01:12 | XMS_ITS | Encounter Summary ---
Author Organization [employer] Address [address] [place] [address] Care Team Providers Care Stab Setter And Driller Name Role Phone [facility], [facility] Primary Care Provider Ele contreras Encounter Details Date Type Department Care Team (Latest Contact Info) Description 09/09/2004 Outpatient Historical [facility] [address] [place] [address] 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 Gender Identity Not on file Sexual Orientation Not on file documented as of this encounter Plan of Treatment Not on file documented as of this encounter Procedures Procedure Name Priority Date/Time Associated Diagnosis Comments PROGESTERONE Routine 09/09/2004 8:27 PM CDT TSH Routine 09/09/2004 8:27 PM CDT documented in this encounter Results * TSH (09/09/2004 8:27 PM CDT) TSH 2.31 0.27 - 4.20 uU/mL INTERFACE SYSTEM 09/09/2004 8:27 PM CDT us Jarek Nunez MD CHEMISTRY ORDERABLES Final Resu lt INTERFACE SYSTEM Refer to clinic/hospital department * PROGESTERONE (09/09/2004 8:27 PM CDT) PROGESTERONE 34.7 ng/mL INTERFA CE SYSTEM Comment: Progesterone Reference Range: Female: Normally Menstruating Female Follicular Phase 0.2 - 1.5 ng/mL Ovulation Phase 0.8 - 3.0 ng/mL Luteal Phase 1.7 - 27.0 ng/mL Postmenopausal 0.1 - 0.8 ng/mL No Pediatric Reference Range Available. 09/09/2004 8:27 PM CDT us Jarek Nunez MD CHEMISTRY ORDERABLES Final Resu lt INTERFACE SYSTEM Refer to clinic/hospital department documented in this encounter Visit Diagnoses Diagnosis Other specified complication, antepartum(646.83)- Primary Other specified complication, antepartum documented in this encounter Care Teams Stab Setter And Driller Relationship Specialty Start Date End Date [facility], External Provider [address] [place] [address] PCP - General 08/09/10 documented as of this encounter
--- OUTSIDE RECORDS SUMMARY | 2024-12-11 01:12 | XMS_ITS | Encounter Summary ---
Author Organization [facility] Address [address] [place] [address] Care Team Providers Care Dredging Inspector Name Role Phone [facility] Provider Primary Care Provider Ele contreras Encounter Details Date Type Department Care Team (Late st Contact Info) Description 03/09/2007 Outpatient Historical [facility] [place] [address] [place] [address] [place] [address] [place] [address] Social History Tobacco Use Types Packs/Day Years Used Date Smoking Tobacco: Never Assessed Comments Unknown Sex and Gender Information Value Date Recorded Sex Assigned at Not on file Legal Sex Female 5:25 AM MILL CONTROL OPERATOR Gender Identity Not on file Sexual Orientation Not on file documented as of this encounter Plan of Treatment Not on file documented as of this encounter Visit Diagnoses Not on filedocumented in this encounter Care Teams Dredging Inspector Relationship Specialty Start Date End Date [facility] [place] [address] PCP - General 08/09/10 documented as of this encounter
--- OUTSIDE RECORDS SUMMARY | 2024-12-11 01:12 | XMS_ITS | Encounter Summary ---
Author Organization [facility] Address [address] [place] [address] Care Team Providers Care Care Services Manager Name Role Phone [facility] Provider Primary Care Provider Ele contreras Encounter Details Date Type Department Care Team (Late st Contact Info) Description 12/28/2004 Outpatient Historical [facility] Family Medicine [place] [address] [facility] [address] [place] [address] Lois Thornton MD NO ADDRESS ON FILE Social History Tobacco Use Types Packs/Day Years Used Date Smoking Tobacco: Never Assessed Comments Unknown Sex and Gender Information Value Date Recorded Sex Assigned at Not on file Legal Sex Female 5:25 AM LUMBER PULLER Gender Identity Not on file Sexual Orientation Not on file documented as of this encounter Plan of Treatment Not on file documented as of this encounter Visit Diagnoses Not on filedocumented in this encounter Care Teams Care Services Manager Relationship Specialty Start Date End Date [facility], External [place] [address] PCP - General 08/09/10 documented as of this encounter
--- OUTSIDE RECORDS SUMMARY | 2024-12-11 01:12 | XMS_ITS | Encounter Summary ---
Author Organization [facility] Address [address] [place] [address] Care Team Providers Care Package Sorter Name Role Phone [facility] Provider Primary Care Provider Ele contreras Encounter Details Date Type Department Care Team (Late st Contact Info) Description 09/13/2004 Outpatient Historical [facility] Family [place] [address] [place] [address] [place] [address] [address] [place] [address] Social History Tobacco Use Types Packs/Day Years Used Date Smoking Tobacco: Never Assessed Comments Unknown Sex and Gender Information Value Date Recorded Sex Assigned at Not on file Legal Sex Female 5:25 AM PRE BILLING CLINICIAN Gender Identity Not on file Sexual Orientation Not on file documented as of this encounter Plan of Treatment Not on file documented as of this encounter Visit Diagnoses Not on filedocumented in this encounter Care Teams Package Sorter Relationship Specialty Start Date End Date [facility] [place] [address] PCP - General 08/09/10 documented as of this encounter
--- OUTSIDE RECORDS SUMMARY | 2024-12-11 01:12 | XMS_ITS | Encounter Summary ---
Author Organization [facility] Address [address] [place] [address] Care Team Providers Care Drafter Structural Name Role Phone [facility] Primary Care Provider Ele contreras Encounter Details Date Type Department Care Team (Late st Contact Info) Description 11/05/2006 Outpatient Historical [facility] [place] [address] [place] [address] [place] [address] [place] [address] Social History Tobacco Use Types Packs/Day Years Used Date Smoking Tobacco: Never Assessed Comments Unknown Sex and Gender Information Value Date Recorded Sex Assigned at Not on file Legal Sex Female 5:25 AM HOLD WORKER Gender Identity Not on file Sexual Orientation Not on file documented as of this encounter Plan of Treatment Not on file documented as of this encounter Visit Diagnoses Not on filedocumented in this encounter Care Teams Drafter Structural Relationship Specialty Start Date End Date [facility] [place] [address] PCP - General 08/09/10 documented as of this encounter
--- OUTSIDE RECORDS SUMMARY | 2024-12-11 01:12 | XMS_ITS | Encounter Summary ---
Author Organization [employer] Address [address] [place] [address] Care Team Providers Care Seat Coverer Name Role Phone [facility] Primary Care Provider Ele contreras Encounter Details Date Type Department Care Team (Latest Contact Info) Description 12/12/2006 Outpatient Historical [facility] [place] [place] 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
--- OUTSIDE RECORDS SUMMARY | 2024-12-11 01:12 | XMS_ITS | Encounter Summary ---
Author Organization [employer] Address [address] [place] [address] Care Team Providers Care Hvac R Tech Name Role Phone [facility] Primary Care Provider Ele contreras Encounter Details Date Type Department Care Team (Latest Contact Info) Description 10/31/2006 Outpatient Historical [facility] [place] [address] [facility] [place] [address] Supervision of Other Normal (Primary Dx) Social History Tobacco Use Types Packs/Day Years Used Date Smoking Tobacco: Never Assessed Comments Unknown Sex and Gender Information Value Date Recorded Sex Assigned at Not on file Legal Sex Female 5:25 AM OUTGOING INSPECTOR Gender Identity Not on file Sexual Orientation Not on file documented as of this encounter Plan of Treatment Not on file documented as of this encounter Visit Diagnoses Diagnosis Supervision of other normal - Primary documented in this encounter Care Teams Hvac R Tech Relationship Specialty Start Date End Date [facility] [place] [address] PCP - General 08/09/10 documented as of this encounter
--- OUTSIDE RECORDS SUMMARY | 2024-12-11 01:12 | XMS_ITS | Encounter Summary ---
Author Organization [facility] Address [address] [place] [address] Care Team Providers Care Captain Of Guards Name Role Phone [facility] Primary Care Provider Ele contreras Encounter Details Date Type Department Care Team (Late st Contact Info) Description 11/25/2004 Outpatient Historical [facility] [place] [address] [place] [address] [place] [address] [place] [address] Social History Tobacco Use Types Packs/Day Years Used Date Smoking Tobacco: Never Assessed Comments Unknown Sex and Gender Information Value Date Recorded Sex Assigned at Not on file Legal Sex Female 5:25 AM DOG BOARDER Gender Identity Not on file Sexual Orientation Not on file documented as of this encounter Plan of Treatment Not on file documented as of this encounter Visit Diagnoses Not on filedocumented in this encounter Care Teams Captain Of Guards Relationship Specialty Start Date End Date [facility] [place] [address] PCP - General 08/09/10 documented as of this encounter
--- OUTSIDE RECORDS SUMMARY | 2024-12-11 01:12 | XMS_ITS | Encounter Summary ---
Author Organization [facility] Address [address] [place] [address] Care Team Providers Care Bristle Machine Operator Name Role Phone [facility] Primary Care Provider Ele contreras Encounter Details Date Type Department Care Team (Late st Contact Info) Description 02/28/2007 Outpatient Historical [facility] [place] [address] [address] [address] [place] [address] [place] [address] [address] [address] [place] [address] Social History Tobacco Use Types Packs/Day Years Used Date Smoking Tobacco: Never Assessed Comments Unknown Sex and Gender Information Value Date Recorded Sex Assigned at Not on file Legal Sex Female 5:25 AM LAND INSPECTOR Gender Identity Not on file Sexual Orientation Not on file documented as of this encounter Plan of Treatment Not on file documented as of this encounter Visit Diagnoses Not on filedocumented in this encounter Care Teams Bristle Machine Operator Relationship Specialty Start Date End Date [facility], [place] [address] PCP - General 08/09/10 documented as of this encounter
--- OUTSIDE RECORDS SUMMARY | 2024-12-11 01:12 | XMS_ITS | Encounter Summary ---
Author Organization [employer] Address [address] [place] [address] Care Team Providers Care Latin Professor Name Role Phone [facility] Primary Care Provider Ele contreras Encounter Details Date Type Department Care Team (Latest Contact Info) Description 01/23/2005 Outpatient Historical [facility] [address] [place] [address] [facility] [place] [address] SUPERVIS NORMAL 1ST PREG (Primary Dx) Social History Tobacco Use Types Packs/Day Years Used Date Smoking Tobacco: Never Assessed Comments Unknown Sex and Gender Information Value Date Recorded Sex Assigned at Not on file Legal Sex Female 5:25 AM STICK WELDER Gender Identity Not on file Sexual Orientation Not on file documented as of this encounter Plan of Treatment Not on file documented as of this encounter Visit Diagnoses Diagnosis Supervision of normal first - Primary documented in this encounter Care Teams Latin Professor Relationship Specialty Start Date End Date [facility] [place] [address] PCP - General 08/09/10 documented as of this encounter
--- OUTSIDE RECORDS SUMMARY | 2024-12-11 01:12 | XMS_ITS | Encounter Summary ---
Author Organization [facility] Address [address] [place] [address] Care Team Providers Care Equal Opportunity Officer Name Role Phone [facility] Provider Primary Care Provider Ele contreras Encounter Details Date Type Department Care Team (Late st Contact Info) Description 09/26/2004 Outpatient Historical [facility] [place] [address] [address] [place] [address] [place] [address] [address] [place] [address] Social History Tobacco Use Types Packs/Day Years Used Date Smoking Tobacco: Never Assessed Comments Unknown Sex and Gender Information Value Date Recorded Sex Assigned at Not on file Legal Sex Female 5:25 AM LINOLEUM FLOOR LAYER Gender Identity Not on file Sexual Orientation Not on file documented as of this encounter Plan of Treatment Not on file documented as of this encounter Visit Diagnoses Not on filedocumented in this encounter Care Teams Equal Opportunity Officer Relationship Specialty Start Date End Date [facility] [place] [address] PCP - General 08/09/10 documented as of this encounter
--- OUTSIDE RECORDS SUMMARY | 2024-12-11 01:12 | XMS_ITS | Encounter Summary ---
Author Organization [facility] Address [address] [place] [address] Care Team Providers Care Information Security Director Name Role Phone [facility] Primary Care Provider Ele contreras Encounter Details Date Type Department Care Team (Late st Contact Info) Description 01/23/2005 Outpatient Historical [facility] [place] [address] [place] [address] [place] [address] [address] [place] [address] Social History Tobacco Use Types Packs/Day Years Used Date Smoking Tobacco: Never Assessed Comments Unknown Sex and Gender Information Value Date Recorded Sex Assigned at Not on file Legal Sex Female 5:25 AM CORRECTIONS IDENTIFICATION TECHNICIAN Gender Identity Not on file Sexual Orientation Not on file documented as of this encounter Last Filed Vital Signs Vital Sign Reading Time Taken Comments Blood Pressure 124/76 01/23/2005 1:00 PM CDT Pulse - - Temperature - - Respiratory Rate - - Oxygen Saturation - - Inhaled Oxygen Concentration - - Weight 107 kg (236 lb) 01/23/2005 1:00 PM CDT Height - - Body Mass Index 37.8 04/27/2004 10:30 AM CORRECTIONS IDENTIFICATION TECHNICIAN documented in this encounter Plan of Treatment Not on file documented as of this encounter Visit Diagnoses Not on filedocumented in this encounter Care Teams Information Security Director Relationship Specialty Start Date End Date Demond, External Provider [address] [place] [address] PCP - General 08/09/10 documented as of this encounter
--- OUTSIDE RECORDS SUMMARY | 2024-12-11 01:12 | XMS_ITS | Encounter Summary ---
Author Organization [facility] Address [address] [place] [address] Care Team Providers Care Knockout Machine Operator Name Role Phone [facility] Primary Care Provider Ele contreras Encounter Details Date Type Department Care Team (Late st Contact Info) Description 09/06/2004 Outpatient Historical [facility] [place] [address] [address] [place] [address] [place] [address] [address] [place] [address] Social History Tobacco Use Types Packs/Day Years Used Date Smoking Tobacco: Never Assessed Comments Unknown Sex and Gender Information Value Date Recorded Sex Assigned at Not on file Legal Sex Female 5:25 AM PREMIUM CARD CANCELLATION CLERK Gender Identity Not on file Sexual Orientation Not on file documented as of this encounter Plan of Treatment Not on file documented as of this encounter Visit Diagnoses Not on filedocumented in this encounter Care Teams Knockout Machine Operator Relationship Specialty Start Date End Date [facility] [place] [address] PCP - General 08/09/10 documented as of this encounter
--- OUTSIDE RECORDS SUMMARY | 2024-12-11 01:12 | XMS_ITS | Encounter Summary ---
Author Organization [facility] Address [address] [place] [address] Care Team Providers Care Non Acoustic Operator Name Role Phone [facility] Provider Primary Care Provider Ele contreras Encounter Details Date Type Department Care Team (Late st Contact Info) Description 09/09/[address] [facility] [place] [address] [address] [place] [address] [place] [address] [address] [place] [address] Social History Tobacco Use Types Packs/Day Years Used Date Smoking Tobacco: Never Assessed Comments Unknown Sex and Gender Information Value Date Recorded Sex Assigned at Not on file Legal Sex Female 5:25 AM JERSEY KNITTER Gender Identity Not on file Sexual Orientation Not on file documented as of this encounter Plan of Treatment Not on file documented as of this encounter Visit Diagnoses Not on filedocumented in this encounter Care Teams Non Acoustic Operator Relationship Specialty Start Date End Date [facility] [place] [address] PCP - General 08/09/10 documented as of this encounter
--- OUTSIDE RECORDS SUMMARY | 2024-12-11 01:12 | XMS_ITS | Encounter Summary ---
Author Organization [facility] Address [address] [place] [address] Care Team Providers Care Contact Center Team Lead Name Role Phone [facility] Provider Primary Care Provider U vaishnaviailmarilee Encounter Details Date Type Department Care Team (Late st Contact Info) Description 11/01/2006 Outpatient Historical [facility] Maternal and Ground Floor [address] [place] [address] Barbara Mayes MD [address] [place] [address] Social History Tobacco Use Types Packs/Day Years Used Date Smoking Tobacco: Never Assessed Comments Unknown Sex and Gender Information Value Date Recorded Sex Assigned at Not on file Legal Sex Female 5:25 AM BOOK BINDER Gender Identity Not on file Sexual Orientation Not on file documented as of this encounter Plan of Treatment Not on file documented as of this encounter Visit Diagnoses Not on filedocumented in this encounter Care Teams Contact Center Team Lead Relationship Specialty Start Date End Date Demond, External Provider [address] [place] [address] PCP - General 08/09/10 documented as of this encounter
--- OUTSIDE RECORDS SUMMARY | 2024-12-11 01:12 | XMS_ITS | Encounter Summary ---
Author Organization [facility] Address [address] [place] [address] Care Team Providers Care Framing Mill Supervisor Name Role Phone [facility] Primary Care Provider Ele contreras Encounter Details Date Type Department Care Team (Late st Contact Info) Description 09/06/2004 Outpatient Historical [facility] [place] [address] [place] [address] [place] [address] [address] [place] [address] Social History Tobacco Use Types Packs/Day Years Used Date Smoking Tobacco: Never Assessed Comments Unknown Sex and Gender Information Value Date Recorded Sex Assigned at Not on file Legal Sex Female 5:25 AM SAP TECHNICAL DEVELOPER Gender Identity Not on file Sexual Orientation Not on file documented as of this encounter Plan of Treatment Not on file documented as of this encounter Visit Diagnoses Not on filedocumented in this encounter Care Teams Framing Mill Supervisor Relationship Specialty Start Date End Date [facility] [place] [address] PCP - General 08/09/10 documented as of this encounter
--- OUTSIDE RECORDS SUMMARY | 2024-12-11 01:12 | XMS_ITS | Encounter Summary ---
Author Organization [facility] Address [address] [place] [address] Care Team Providers Care Geochemical Manager Name Role Phone [facility] Primary Care Provider Ele contreras Encounter Details Date Type Department Care Team (Late st Contact Info) Description 09/02/2004 Outpatient Historical [facility] [place] [address] [address] [place] [address] [place] [address] [address] [place] [address] Social History Tobacco Use Types Packs/Day Years Used Date Smoking Tobacco: Never Assessed Comments Unknown Sex and Gender Information Value Date Recorded Sex Assigned at Not on file Legal Sex Female 5:25 AM PROFESSOR OF SPORT MANAGEMENT Gender Identity Not on file Sexual Orientation Not on file documented as of this encounter Plan of Treatment Not on file documented as of this encounter Visit Diagnoses Not on filedocumented in this encounter Care Teams Geochemical Manager Relationship Specialty Start Date End Date [facility] [place] [address] PCP - General 08/09/10 documented as of this encounter
--- OUTSIDE RECORDS SUMMARY | 2024-12-11 01:12 | XMS_ITS | Encounter Summary ---
Author Organization [facility] Address [address] [place] [address] Care Team Providers Care Material Lister Name Role Phone [facility], External Provider Primary Care Provider U ben Encounter Details Date Type Department Care Team (Late st Contact Info) Description 01/10/2007 Outpatient Historical [facility] Maternal and Ground Floor [address] [place] [address] Barry Mcguire MD NO ADDRESS ON FILE Social History Tobacco Use Types Packs/Day Years Used Date Smoking Tobacco: Never Assessed Comments Unknown Sex and Gender Information Value Date Recorded Sex Assigned at Not on file Legal Sex Female 5:25 AM DEFENSIVE DRIVING INSTRUCTOR Gender Identity Not on file Sexual Orientation Not on file documented as of this encounter Plan of Treatment Not on file documented as of this encounter Visit Diagnoses Not on filedocumented in this encounter Care Teams Material Lister Relationship Specialty Start Date End Date Demond, External Provider [address] [place] [address] PCP - General 08/09/10 documented as of this encounter
--- OUTSIDE RECORDS SUMMARY | 2024-12-11 01:12 | XMS_ITS | Encounter Summary ---
Author Organization [facility] Address [address] [place] [address] Care Team Providers Care Computerized Mill Recorder Name Role Phone [facility] Primary Care Provider Ele contreras Encounter Details Date Type Department Care Team (Late st Contact Info) Description 03/07/2007 Outpatient Historical [facility] [place] [address] [place] [address] [place] [address] [address] [place] [address] Social History Tobacco Use Types Packs/Day Years Used Date Smoking Tobacco: Never Assessed Comments Unknown Sex and Gender Information Value Date Recorded Sex Assigned at Not on file Legal Sex Female 5:25 AM SWIMMING POOL INSTALLER AND SERVICER Gender Identity Not on file Sexual Orientation Not on file documented as of this encounter Plan of Treatment Not on file documented as of this encounter Visit Diagnoses Not on filedocumented in this encounter Care Teams Computerized Mill Recorder Relationship Specialty Start Date End Date [facility] [place] [address] PCP - General 08/09/10 documented as of this encounter
--- OUTSIDE RECORDS SUMMARY | 2024-12-11 01:12 | XMS_ITS | Encounter Summary ---
Author Organization [facility] Address [address] [place] [address] Care Team Providers Care Metal Polisher And Buffer Apprentice Name Role Phone [facility] Primary Care Provider Ele contreras Encounter Details Date Type Department Care Team (Late st Contact Info) Description 09/02/2004 Outpatient Historical [facility] [place] [address] [place] [address] [place] [address] [address] [place] [address] Social History Tobacco Use Types Packs/Day Years Used Date Smoking Tobacco: Never Assessed Comments Unknown Sex and Gender Information Value Date Recorded Sex Assigned at Not on file Legal Sex Female 5:25 AM ELECTROENCEPHALOGRAPH TECHNICIAN Gender Identity Not on file Sexual Orientation Not on file documented as of this encounter Plan of Treatment Not on file documented as of this encounter Visit Diagnoses Not on filedocumented in this encounter Care Teams Metal Polisher And Buffer Apprentice Relationship Specialty Start Date End Date [facility] [place] [address] PCP - General 08/09/10 documented as of this encounter
--- OUTSIDE RECORDS SUMMARY | 2024-12-11 01:12 | XMS_ITS | Encounter Summary ---
Author Organization [employer] Address [address] [place] [address] Care Team Providers Care Icu Manager Name Role Phone [facility] Primary Care Provider U vaishnaviailable Encounter Details Date Type Department Care Team (Latest Contact Info) Description 03/08/2007 Inpatient Historical [facility] [place] [address] 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 Gender Identity Not on file Sexual Orientation Not on file documented as of this encounter Plan of Treatment Not on file documented as of this encounter Procedures Procedure Name Priority Date/Time Associated Diagnosis Comments CBC WITH DIFFERENTIAL Routine 03/08/2007 11:20 PM CDT CBC WITH DIFFERENTIAL Routine 03/08/2007 11:20 PM CDT URIC ACID Routine 03/08/2007 11:20 PM CDT ALT Routine 03/08/2007 11:20 PM CDT AST Routine 03/08/2007 11:20 PM CDT LACTATE DEHYDROGENASE Routine 03/08/2007 11:20 PM CDT documented in this encounter Results * (ABNORMAL) CBC WITH DIFFERENTIAL (03/08/2007 11:20 PM CDT) NEUTROPHILS 78(H) 45 - 70 % INTERFAC E SYSTEM LYMPHOCYTES 14(L) 16 - 45 % INTERFAC E SYSTEM MONOCYTES 8 3 - 13 % INTERFACE SYSTEM EOSINOPHILS 0 0 - 7 % INTERFAC E SYSTEM BASOPHILS 0 0 - 2 % INTERFACE SYSTEM NEUTROPHIL ABSOLUTE 7.29(H) 1.90 - 7.00 K/uL INTERFACE SYSTEM LYMPHOCYTE ABSOLUTE 1.29 0.70 - 4.50 K/uL INTERFACE SYSTEM MONOCYTE ABSOLUTE 0.70 0.10 - 1.30 K/uL INTERFACE SYSTEM EOSINOPHIL ABSOLUTE 0.03 0.00 - 0.70 K/uL INTERFACE SYSTEM BASOPHILS ABSOLUTE 0.01 0.00 - 0.20 K/uL INTERFACE SYSTEM 03/08/2007 11:2 0 PM CDT Jarek Nunez MD HEMATOLOGY ORDERABLES Edited Performing Organization Address City/[facility] de Phone Number INTERFACE SYSTEM Refer to clinic/hospital department * (ABNORMAL) CBC WITH DIFFERENTIAL (03/08/2007 11:20 PM CDT) WBC 9.3 4.0 - 9.8 K/uL INTERFACE SYSTEM RBC 4.01 3.90 - 4.90 M/uL INTERFACE SYSTEM HEMOGLOBIN 13.7 11.8 - 14.8 g/dL INTERFACE SYSTEM HEMATOCRIT 38.6 35.5 - 44.0 % INTERFACE SYSTEM MCV 96.3 82.0 - 99.0 fL INTERFACE SYSTEM MCH 34.2(H) 27.2 - 32.6 pg INTERFACE SYSTEM MCHC 35.5 31.5 - 35.5 % INTERFACE SYSTEM RDW 13.4 11.5 - 14.5 % INTERFACE SYSTEM RDW-STDEV 46.5 37.1 - 48.7 fL INTERFACE SYSTEM PLATELETS 167 140 - 350 K/uL INTERFACE SYSTEM MPV 11.7 9.3 - 12.4 fL INTERFACE SYSTEM 03/08/2007 11:2 0 PM CDT Jarek Nunez MD HEMATOLOGY ORDERABLES Edited Performing Organization Address City/[facility] Co de Phone Number INTERFACE SYSTEM Refer to clinic/hospital department * (ABNORMAL) URIC ACID (03/08/2007 11:20 PM CDT) URIC ACID 6.9(H) 2.3 - 6.6 mg/dL INTERFACE SYSTEM 03/08/2007 11:2 0 PM CDT us Jarek Nunez MD CHEMISTRY ORDERABLES Edited Performing Organization Address City/[facility] Phone Number INTERFACE SYSTEM Refer to clinic/hospital department * (ABNORMAL) LACTATE DEHYDROGENASE (03/08/2007 11:20 PM CDT) LD (LACTATE DEHYDROGENASE) 221(H) 135 - 214 U/L INTERFACE SYSTEM Comment:Slight hemolysis pre sent. Result may be falsely elevated. 03/08/2007 11:2 0 PM CDT us Jarek Nunez MD CHEMISTRY ORDERABLES Edited Performing Organization Address [facility] Phone Number INTERFACE SYSTEM Refer to clinic/hospital department * ALT (03/08/2007 11:20 PM CDT) ALT 17 0 - 31 U/L INTERFACE SYSTEM 03/08/2007 11:2 0 PM CDT us Jarek Nunez MD CHEMISTRY ORDERABLES Edited Performing Organization Address City/[facility] Phone Number INTERFACE SYSTEM Refer to clinic/hospital department * AST (03/08/2007 11:20 PM CDT) AST 20 12 - 32 U/L INTERFAC E SYSTEM 03/08/2007 11:2 0 PM CDT us Jarek Nunez MD CHEMISTRY ORDERABLES Edited Performing Organization Address City/[facility] Phone Number INTERFACE SYSTEM Refer to clinic/hospital department documented in this encounter Visit Diagnoses Diagnosis Elderly multigravida, delivered with or without mention of antepartum condition- Primary documented in this encounter Care Teams Icu Manager Relationship Specialty Start Date End Date [facility], External Provider [address], [place] [address] PCP - General 08/09/10 documented as of this encounter
--- OUTSIDE RECORDS SUMMARY | 2024-12-11 01:12 | XMS_ITS | Data Portability ---
Author Organization [facility] Address [address] [place] [address] [place] [address] Care Team Providers Care Registered Public Health Nurse Name Role Phone SULEMA FRANKLIN Primary Care Provider [phone] Assessment Encounter Date Assessment Date Assessment LastModified by Organization Details LastModified Time 09/09/2024 09/09/2024 Annual gynecological exam performed. Patient will come back in a year unless there are new symptoms. [email or web address] Not available 09/09/2024 09:45:42 Plan of Treatment Reminders Order Date Submit Date Provider Last Modified By Organization Details Last Modified Time Details Appointments None recorded. Lab None recorded. Referral None recorded. Procedures None recorded. Surgeries total hysterectom y, laparoscopi c, with bilateral salpingo-oo phorectomy (SURG) [address] [place], [address] [facility], [place], [address], 4 10:21:27 Imaging MAMMO, screening, digital, bilateral 2024 025 [facility], [address], [place] [address], [place], [address], 5 04:10:13 Medication Orders progesteron e micronized 200 mg capsule 2024 025 [place] [facility] #[id number], [address], [id number], 5 12:10:56 progesteron e micronized 100 mg capsule 2024 025 [facility] #[id number], [address], [id number], 5 12:12:09 estradiol 0.05 mg/24 hr semiweekly transdermal patch 2024 025 [facility] #[id number], [address] [facility], [place], [place], [id number], 10:11:35 Patient TargetsNo targets recorded. Patient InstructionsNo instructions recorded. Reason for Referral None Reported. Results Created Date Observation Date Name Description Value Unit Range Abnormal Flag Note LastModifiedBy Organization Detail LastModifiedTime 08/21/1908/21/2023 [place], salena law No observ ation record ed. [email or web address] [place] [address], [place], [address], 08/21/2023 18:36:38 08/21/19 24 08/21/2023 US, gemma pollard No observ ation record ed. [email or web address] [place] [address], [place], [address], 08/21/2023 18:36:29 08/21/19 24 08/21/2023 US, salena law No observ ation record ed. [email or web address] Mandi [address], [place], [address], 08/24/2023 14:27:54 Result Notes None recorded. Problems Name Problem SNOMED Code Status Onset Date Resolution Date Notes Provider Name and Address Organization Details Recorded Time Screening for malignant neoplasm of cervix Active 015 Pap Smear;Prasad hines ID: [id number] Not Available [facility] 0 18:41:15 Problem Notes None recorded. Procedures Surgical History Date Name Laterality Status Provider Name and Address Organization Details Recorded Time 07/08/19 25 Orthopedic Surgery completed Mandie Gonzales [facility] 09/09/2024 09:45:00 10/26/19 24 Total Hysterectomy completed FREDERIC JI MD [address], [place], [address], [facility] 11/01/2023 23:38:59 05/15/20 23 Hysteroscopy completed FREDERIC JI MD [address], [place], [address], [facility] 05/15/2023 10:40:17 02/15/20 23 Date of Last Pap Smear completed Tracey Garza [facility] 02/21/2023 16:43:51 10/27/19 16 Date of Last Mammogram completed Lola Stanford [facility] 02/14/2023 12:35:33 Imaging Results None recorded. Procedure Notes None recorded. Medical Equipment None Reported. Allergies No known drug allergies Medications Name Sig Start Date Stop Date Status Note LastModified by Organization Details LastModified Time losartan 50 mg tablet TAKE 1 TABLET BY MOUTH DAILY active Not Available Not Available No t Available celecoxib 200 mg capsule TAKE 1 CAPSULE BY MOUTH DAILY active Not Available Not Available No t Available paroxetin e 10 mg tablet TAKE 1 TABLET BY MOUTH DAILY active Not Available Not Available No t Available ibuprofen 800 mg tablet TAKE 1 TABLET BY MOUTH 2 HOURS BEFORE THE PROCEDUR E 09/02 completed Not Available Not Available Not Available ondansetr on HCl 8 mg tablet TAKE 1 TABLET BY MOUTH 2 HOURS BEFORE THE PROCEDUR E 10/31 completed Not Available Not Available Not Available chlorthal idone 25 mg tablet TAKE 1 TABLET BY MOUTH DAILY 09/09 completed Not Available Not Available Not Available estradiol 0.05 mg/24 hr semiweekl y transderm al patch APPLY 1 PATCH TOPICALL Y TO THE SKIN 2 TIMES A WEEK active Not Available Not Available No t Available hydrocodo ne 10 mg-acetam inophen 325 mg tablet TAKE 1 TABLET BY MOUTH 2 HOURS PRIOR TO PROCEDUR E 09/02 completed Not Available Not Available Not Available oxycodone -acetamin ophen 5 mg-325 mg tablet 10/31 completed Not Available Not Available Not Available alprazola m 0.5 mg tablet TAKE 1 TABLET BY MOUTH 2 HOURS PRIOR TO APPOINTM ENT 09/02 completed Not Available Not Available Not Available levothyro xine 125 mcg tablet TAKE 1 TABLET BY MOUTH EVERY DAY 09/09 completed Not Available Not Available Not Available misoprost ol [address] 1 tablet vaginall y the night prior to your procedur e 09/02 completed Not Available Not Available Not Available progester one micronize d 200 mg capsule TAKE 1 CAPSULE BY MOUTH EVERY DAY active Not Available Not Available No t Available diclofena c sodium 75 mg tablet,de layed release TAKE 1 TABLET BY MOUTH TWICE DAILY 11/06 completed Not Available Not Available Not Available Vitamin D2 1,250 mcg (50,000 unit) capsule take 1 capsule by oral route every week 2018 active Prescrib ed Elsewher e: No Locat ion: [facility] odify By: leno Galeas ncounter DateTime : 11/15/19 19 10:19:56 AM Not Available Not Available Not Available progester one micronize d 100 mg capsule TAKE 1 CAPSULE BY MOUTH EVERY DAY AT BEDTIME 11/06 completed Not Available Not Available Not Available levothyro xine 112 mcg tablet TAKE 1 TABLET BY MOUTH DAILY active Not Available Not Available No t Available paroxetin e ER 12.5 mg tablet,ex tended release 24 hr 11/06 completed Not Available Not Available Not Available cholecalc iferol (vitamin D3) 25 mcg (1,000 unit) capsule TAKE 1 CAPSULE BY MOUTH DAILY active Not Available Not Available No t Available Tirosint 13 mcg capsule take 1 capsule by oral route every day 02/14 completed Prescrib ed Elsewher e: Yes Loca tion: [facility] By: donnie Galeas ncounter DateTime : 12/17/19 13 09:30:00 AM Not Available Not Available Not Available Vitals Date Recorded Body height Body mass index (BMI) Body weight Systolic And Diastolic Provider Name and Address Organization Details Last Updated DateTime 09/03/2023 170.18 cm 40.5 kg/m2 631552.27 g 129/79 mm[Hg] Lola Stanford [facility] 09/03/2023 17:18:19 Date Recorded Body height Body mass index (BMI) Body weight Systolic And Diastolic Provider Name and Address Organization Details Last Updated DateTime 09/09/2024 170.18 cm 36.9 kg/m2 650418.08 g 123/84 mm[Hg] Mandie Gonzales [facility] 09/09/2024 09:55:43 Date Recorded Body height Body mass index (BMI) Body weight Systolic And Diastolic Provider Name and Address Organization Details Last Updated DateTime 11/01/2023 170.18 cm 39.5 kg/m2 538884.28 g 123/81 mm[Hg] Lola [facility] 11/01/2023 16:47:58 Date Recorded Body height Body mass index (BMI) Body weight Systolic And Diastolic Provider Name and Address Organization Details Last Updated DateTime 11/06/2024 170.18 cm 35.9 kg/m2 127293.65 g 123/86 mm[Hg] Tracey Greg [facility] 11/06/2024 11:54:56 Date Recorded Body height Body mass index (BMI) Body weight Systolic And Diastolic Provider Name and Address Organization Details Last Updated DateTime 12/05/2023 170.18 cm 39.7 kg/m2 645841.31 g 122/85 mm[Hg] [facility] 12/05/2023 10:36:18 Social History Question Answer Notes LastModified by Organizat ion Details LastModified Time Do You Have An Advance Directive? No [email or web address] Information n ot available 09/09/2024 How Many Years Have You Consumed Alcohol? 30 Information not available 02/14/2023 Are You Blind Or Do You Have Difficulty Seeing? No Information n ot available 02/14/2023 What Is Your Level Of Caffeine Consumption? Occasional Information not available 02/14/2023 How Much Tobacco Do You Chew? None Information not available 02/14/2023 In The 14 Days Before Symptom Onset, Have You Had Close Contact With A Laboratory-confirm ed COVID-19 While That Case Was Ill? No Information n ot available 02/14/2023 In The 14 Days Before Symptom Onset, Have You Had Close Contact With A Person Who Is Under Investigation For COVID-19 While That Person Was Ill? No Information not available 02/14/2023 Have You Been To An Area Known To Be High Risk For COVID-19? No Information not available 02/14/2023 Are You Deaf Or Do You Have Serious Difficulty Hearing? No Information not available 02/14/2023 What Type Of Diet Are You Following? REGULAR Information n ot available 02/14/2023 What Is The Highest Grade Or Level Of School You Have Completed Or The Highest Degree You Have Received? [id number] Information not available 02/14/2023 Are There Any Guns Present In Your Home? No Information not available 02/14/2023 Do You Use Protection During Sex? No Information not available 02/14/2023 Do You Use Your Seat Belt Or Car Seat Routinely? Yes Information not available 02/14/2023 Do You Have Smoke And Carbon Monoxide Detectors In Your Home? Yes Information not available 02/14/2023 How Much Tobacco Do You Smoke? No Information not available 02/14/2023 Do You Use Sunscreen Routinely? Yes Information not available 02/14/2023 Have You Used IV Drugs? No Information not available 02/14/2023 Sex: Unknown Functional Status Question Answer Note LastModified by Organizat ion Details LastModified Time Do you use any illicit or recreational drugs? No Information not available 02/14/2023 What is your level of alcohol consumption? Occasional Information not available 02/14/2023 Are you able to walk? 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 Occasional Information not available 02/14/2023 Mental Status Question Answer Note LastModified by Organization D etails LastModified Time Do you feel stressed (tense, restless, nervous, or anxious, or unable to sleep at night)? [id number] Information not available 02/14/2023 Family History Nothing Reported Notes:Father: Hypertension M aternal grandmother: Diabetes mellitus Mother: Clear cell endometrial cancer, Hypertension, Cancer, breast Paternal grandmother: Cancer, breast Medical History Condition Response Allergies (Food, seasonal, environmental ) N Other N Drug/Latex Allergies/Reactions N Breast Cancer N Blood Transfusion N Lung Disease N Dermatologic Disorders N Defects or Inherited Disease N Breast Problem N Gestational Diabetes N Hematologic disorders N Anesthesia Complications N History of STI N Deep Vein Thrombosis N Polycystic ovary syndrome N Anxiety Disorder Y Autoimmune disease N Arthritis N Polyps N Infertility N History of abnormal pap N Acid Reflux (GERD) N Cancer N Varicosities N Stroke N Neurologic/Epilepsy N Endometriosis N High Cholesterol N Headaches N Fibromyalgia N Kidney Disease N Heart Problems N Thyroid Problems Y Kidney or Bladder Problems N GI Problems N Eating Disorder N Anemia N Art (IVF or FET) N Psychiatric Illness N Ovarian Cancer N Diabetes N Pulmonary (TB, Asthma) N Hepatitis/Liver Disease N No Past Medical History N Eczema N Urinary Tract Infection N Abuse/Domestic Violence N Asthma N Trauma/Violence N Depression/ depression N Heart Disease N Pre-Eclampsia N Hypertension Y Osteoporosis N Thrombophilias N Gynecological History Statement/Question Response Abnormal Pap N Date of Last Mammogram 10/27/2015 Date of LMP 07/25/2023 Was last menstrual period normal Y STIs/STDs N Current Control Method Hysterectom y Age at First Child 34 Sexually Active? N Menses Monthly N Age of first menstrual cycle 12 Date of Last Pap Smear 02/14/2023 Sexual Problems? N Desired Control Method N/A N Obstetrics History GPAL:G 3 P 0 0 0 3 Type Value Living 3 Total 3 Past Encounters Encounter ID Performer Location Encounter Start Date Encounter Closed Date Diagnosis/Indication Diagnosis SNOMED-CT Code Diagnosis ICD10 Code Diagnosis Note [id number] [facility] [address] [address] 02/14/2023 12:05:57 02/14/2023 13:23:14 Gynecologic examination 95739604 Z01.419 Take Calcium with Vitamin D 12-1500mg daily. Do monthly self breast exams. It is advised to get annual flu shot in the fall and she could obtain at [facility] or [facility] clinic. If you haven't received the Tdap vaccine in the last 10 years you should obtain one as well. Have mammogram yearly, bone density every 2-3 years and colonoscop y every 5-10 years depending on findings and history. Engage in daily exercise of low impact aerobic exercise 45-60 minutes 4-5 times weekly. Avoid tobacco and illicit drugs as well as using moderation with alcohol intake less than 1-2 8 oz beverages daily. This lifestyle behavior pattern will lead to less health conditions and longer life span. If BMI greater than 25 weight watchers or dietary consult advised. Questions have been answered. Patient appears to understand instructio ns, but if you have any further questions call or respond to this email Pap/hpv sentSTD Screen declinedGe netic Screen discussedC olon Screen PCPDexa Screen naRoutine Labs PCP Screening mammography 24 406910 Z12.31 Postmenopa usal bleeding 27609271 N95.0 No menses x 12mosRecen jermaine has a menses 01/01/2023.F ull moderate flow lasting 7 daysNeg dysmenorrh eaNothing since this time.Mimic 'd her previous normal menses.No other sx's. Discussed possible causes of AUB/PMB including risks for precancers /cancers as a concern.Serena galeas agrees to pursue labs/US and then we will discuss EMBx at f/u visit.Her cervix is somewhat stenotic so possibly may need MD for EMBx if unable to complete. [id number] Chalino Lawson MD [place] [address] [address] 02/16/2023 09:02:17 02/16/2023 09:48:09 Abnormal uterine bleeding 6521622314 9100 N93.9 [id number] [facility] [address] [address] 02/21/2023 16:35:45 02/21/2023 17:38:16 Cyst of ovary 94967415 N83.209 LARGE Cystic mass in area of right adnexa found on US (see updated TVUS).I have advised an MD consult to discuss this finding further & interventi ons/referr als that are recommende Rhona nding verbalized & agreeable to this plan of care.Will update CA-125 Time spent in visit is a total of 30 mins with at least 50% of visit consisting of counseling and review of plan of care. Postmenopa usal bleeding 61663664 N95.0 In addition, we discussed completing the EMBx today.Fail ed attempt EMBx--ext cervical os is completely stenotic.W ill defer to MD for evaluation /completio n. Screening procedure 2012 5006 Z13.9 [id number] FREDERIC JI MD [place] [address],[place] [address] 02/27/2023 13:52:06 02/28/2023 12:02:39 Cyst of right ovary [id number] 6259311 N83.201 - 7cm anechoic cyst without vascularit y or papillary projection s- CA125 wnl- low suspicion for malignancy - discussed active surveillan ce with repeat US in 3 months Postmenopa usal bleeding 13873769 N95.0 - EMC 5mm- 1 episode of bleeding after 1 year of amenorrhea - EMB attempted unsuccessf ul due to cervical stenosis- discussed trial of repeat EMB vs hysterosco py D&C to ensure adequate sampling; patient desires hysterosco py D&C- will rx cytotec x1 for cervical softening prior to procedure [id number] FREDERIC JI MD [place] [address],[place] [address] 05/15/2023 09:09:50 05/15/2023 10:45:15 Screening procedure 77466572 Z13.9 Postmenopa usal bleeding 88709893 N95.0 - EMC 5mm- 1 episode of bleeding after 1 year of amenorrhea - D&C successful , normal appearing endometriu m on HSC- f/u on pathology as available [id number] Chalino Lawson MD [place] [address] [address] 08/21/2023 16:23:31 08/21/2023 17:18:47 Cyst of right ovary 0646187153 7226230 N83.291 N95.0 [id number] FREDERIC JI MD [place] [address] [address] 09/03/2023 16:58:41 09/04/2023 04:38:31 Postmenopausal bleeding 23531146 N95.0 - EMC 5mm, unchanged from prior exam- 1 episode of bleeding after 1 year of amenorrhea , then addition episode in 06/2023- EMB wnl in 04/2023- discussed repeat sampling due to additional bleeding episode, however patient desires hysterecto my due to family hx of endometria l and ovarian cancer- r/b/a of laparoscop ic hysterecto my discussed with patient. she desires to move forward with surgery Cyst of right ovary 1223 817536 6977472 N83.201 - 7-8cm anechoic cyst without vascularit y or papillary projection s, no improvemen t since prior scan- CA125 wnl- low suspicion for malignancy - discussed continued active management vs R ovarian cystectomy /oopherect jossie pending normal ovarian tissue at time of surgery, including r/b/a of each- patient desires bilateral oopherecto my at time of hysterecto my; discussed possibilit y of menopausal symptoms after removal, patient voices understand ing however desires removal due to endometria l and ovarian cancer history in her family [id number] FREDERIC JI MD [place] [address],[place] [address] 11/01/2023 16:36:03 11/02/2023 12:17:39 Postoperative visit 808653689 Z48.89 - s/p TLH, BSO 10/31- meeting post op milestones - incisions healing well- continue pelvic rest, no baths or swimming pools- rtc 5 weeks for next post op visit [id number] FREDERIC JI MD [place] [address] [address] 12/05/2023 10:29:42 12/05/2023 11:16:16 Postoperative visit 064997480 Z48.89 - s/p TLH, BSO 10/25- meeting post op milestones - incisions healing well- vaginal cuff well healed and palpated intact- ok to resume normal activities , exercise, intercours e- rtc 1 year for WWE, no further pap smears needed [id number] Chalino Lawson MD [place] [address] [address] 09/09/2024 09:44:11 09/09/2024 11:14:51 Menopausal symptom 07040680 N95.1 Hx of total hysterecto my with BSO 10/26/23 for non-cancer ous indication s. We discussed Menopausal Hormone therapy (MHT) for women with a non-intact uterus with the goals of reliving vaso-motor sx's using estrogen/p rogestin therapy (EPT) using lowest doses for shortest duration in women 40-59yo. Contraindi cations include: Hx of DVT or thrombolic events, High cholestero l, Hx of breast cancer, known CHD, active liver disease, unexplaine d vag bleeding, high risk endometria l cancer, TIA. Side effects can include but are not limited to: Irregular vag bleeding, breast tenderness , nausea, weight changes, libido changes, nausea. Adverse Rxn: Elevated BP migraine w/ visual changes, breast cancer dx, MN/stroke, DVT/PE, Endometria l cancer. Please contact office with any new or worsening side effects or adverse reactions. Or if a medical emergency please go to nearest ED/[facility] for further evaluation . RTO in 8 weeks for medication check. Gynecologi c examination 67354152 Z01.419 Annual gynecologi faye exam performed. Patient will come back in a year unless there are new symptoms. Suggest Calcium with Vitamin D if not eating in diet. Patient advised to get annual flu shot. Recommend yearly physicals and perform monthly breast exams. Genetic testing is available for patients with family history of cancer. Engage in safe sexual practices, use condoms. Encouraged to have daily exercise. Avoid tobacco and illicit drugs, moderation of alcohol. If BMI greater than 25 dietary consult advised. If you have any questions please call or email. mammogram- order given, pt to schedule colon cancer screening - Due for colonoscop y; PCP ordered and scheduled in November 2024 DEXA scan- n/a Pap smear- USPSTF recommends against screening for cervical cancer in women older than 65yo, those who've had a hysterecto my for non-cancer indication s, & who have had adequate prior screening & are not otherwise at high risk for cervical cancer. laboratory evaluation - PCP STI testing - declined Screening mammography 24 214310 Z12.31 [id number] Chalino Lawson MD [place] [address] [address] 11/06/2024 11:45:01 11/06/2024 12:24:09 Menopausal symptom 21071963 N95.1 Discussed increasing the dosage of estradiol patch and/or progestero ne to help treat the insomnia due to night sweats.Ese pandey interested in increasing progestero ne to 200 mg PO nightly first. Rx sent.Risks /benefits/ AEs of HRT reviewed.P atient denies questions or concerns.I nstructed patient to call office if she does not have improvemen t with new regimen.Juan collier verbalized understand ing. Health Concerns Section Related Observation LastModified by Organization Detai ls LastModified Time None Recorded Concern Status LastModified by Organization Details LastModified Time None Recorded Advance Directives Directive N: Payers Insurance Date Sequence Insurance Name Policy Number Policy Ugarte Covered Member ID Ugarte Member ID Guarantor Name 11/03/2024 1 [place] [id number] Mervat Cedeno [id number] Mervat Cedeno Notes Date Note Type Note Provider Name and Address Organization Details Recorded Time 09/03/2023 text/html Patient presents for follow up of pelvic US. Patient has been followed due to 7cm ovarian cyst found on prior US. Patient reports some episodes of mild pelvic pain/pressure. Pain not worsening over the last 6 months. Reports hx of ovarian cancer in her sister, which has made her concerned about this cyst. CA125 negative in 01/2023 Also reports additional episode of PMB. LMP 12/2021, had an episode of bleeding 12/2022; US demostrated EMS of 5mm, EMB wnl. Reports 2 days of spotting in 06/2023. Concerned as mother has history of endometrial cancer. FREDERIC JI MD [address], [place], [address], [place] [facility] 09/03/2023 22:37:54 11/01/2023 text/html S/p TLH, BSO 09/27 1. Patient doing well, no complaints. Pain well controlled without pain. Tolerating general diet. Denies nausea or vomiting. No shortness of breath or chest pain. Ambulating. Pathology demonstrates normal uterus, ovary and bilateral fallopian tubes. 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 FREDERIC JI MD [address], [place], [address], [facility] 11/01/2023 23:39:27 12/05/2023 text/html S/p [facility] BSO 10/25 . Patient doing well, no complaints. Pain resolved. Tolerating general diet. Denies nausea or vomiting. No shortness of breath or chest pain. Ambulating. Had an episode of spotting 2 weeks ago, now resolved. Has been compliant with pelvic rest. FREDERIC JI MD [address], [place], [address], [facility] 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 Post-MenopausalRep orted bypatient.Menopaus al Symptoms:no menopausal symptoms; normal vaginal lubrication Vaginal Bleeding:history of menopause having occurred; no history of post menopausal bleeding Urinary Symptoms:no hematuria; no incontinence; no nocturia; no urinary frequency Vulva:no genital lesion; no vulvar atrophy Vagina:normal vaginal discharge; no vaginal atrophy Breast:no breast lump; no nipple discharge; no breast pain Sexual Complaints:no sexual complaints Psychological Symptoms:no depression; no anxiety Preventive Measures:encourage regular mammograms starting age 40; encourage self breast examination; encourage regular exercise; encourage no tobacco use Patient presents for annual well woman exam. Patient hx of total hysterectomy with BSO 10/26/23 for non-cancerous indications. Patient reports increase in hot flashes and insomnia, and she is interested in HRT. JUAN DOMINGO NP [address], [place], [address], [facility] 09/09/2024 10:57:48 11/06/2024 text/html 54 y/o female presents for medication check after starting HRT with estradiol 0.05 mg semi-weekly patch and oral progesterone 200 mg nightly.Patient states that her hot flashes during the day have improved, but she is still waking up during the night with hot flashes and having difficulty sleeping. JUAN DOMINGO NP [address], [place], [address], [facility] 11/06/2024 12:22:25 OBGyn Episode Ob Episode Information Episode Created Date Number of Fetuses Patient Bloodtype Patient rh Status Prepregnancy Weight lbs Domestic Partner Domestic Partner Phone Father Name Torch Shearer Status 02/15/20 23 1 CLOSED Fetus Data First Name Last Name Admitted to NICU Weight (g) Sex Living Outcome Pediatric Complications Fetus ID Race Codes Race Delivery Type 3713.55 7704 M Full Term [id number] Jet Calculation Initial Jet Date Initial Exam Date Initial Exam Provider Initial Ultrasound Date Last Menstrual Period Date Ultra Sound Weeks Gestation 0 Eighteen To Twenty Week Jet Update Ultra Sound Date Fundal Height At Umbil Quickening Date Ultra Sound Latest Weeks Gestation Final Jet Confirmed By Final Jet Confirmed Date Final Jet Date Ultra Sound Latest Days Gestation 0 0 Menstrual History Last Menstrual Date Menses Monthly On Bcp Conception Prior Menses Frequency Hcg Plus Date Menarche Onset Age Delivery Information Delivery Date Delivery Type Labor Anesthesia Weeks Gestation Incision Type Labor Labor Length Hrs Delivered By Post Complications Tubal Sterilization Discharge Date Comments 1 37 Les Discharge Information Feeding Method Contraceptive Method Maternal HG B and HCT Levels Ob Episode Information Episode Created Date Number of Fetuses Patient Bloodtype Patient rh Status Prepregnancy Weight lbs Domestic Partner Domestic Partner Phone Father Name Torch Shearer Status 02/15/20 23 1 CLOSED Fetus Data First Name Last Name Admitted to NICU Weight (g) Sex Living Outcome Pediatric Complications Fetus ID Race Codes Race Delivery Type 3486.76 1704 M Full Term [id number] Vaginal Delivery Jet Calculation Initial Jet Date Initial Exam Date Initial Exam Provider Initial Ultrasound Date Last Menstrual Period Date Ultra Sound Weeks Gestation 0 Eighteen To Twenty Week Jet Update Ultra Sound Date Fundal Height At Umbil Quickening Date Ultra Sound Latest Weeks Gestation Final Jet Confirmed By Final Jet Confirmed Date Final Jet Date Ultra Sound Latest Days Gestation 0 0 Menstrual History Last Menstrual Date Menses Monthly On Bcp Conception Prior Menses Frequency Hcg Plus Date Menarche Onset Age Delivery Information Delivery Date Delivery Type Labor Anesthesia Weeks Gestation Incision Type Labor Labor Length Hrs Delivered By Post Complications Tubal Sterilization Discharge Date Comments 7 Arnold Discharge Information Feeding Method Contraceptive Method Maternal HG B and HCT Levels Ob Episode Information Episode Created Date Number of Fetuses Patient Bloodtype Patient rh Status Prepregnancy Weight lbs Domestic Partner Domestic Partner Phone Father Name Torch Shearer Status 02/15/20 23 1 CLOSED Fetus Data First Name Last Name Admitted to NICU Weight (g) Sex Living Outcome Pediatric Complications Fetus ID Race Codes Race Delivery Type 3458.63 9 F Full Term [id number] Vaginal Delivery Jet Calculation Initial Jet Date Initial Exam Date Initial Exam Provider Initial Ultrasound Date Last Menstrual Period Date Ultra Sound Weeks Gestation 0 Eighteen To Twenty Week Jet Update Ultra Sound Date Fundal Height At Umbil Quickening Date Ultra Sound Latest Weeks Gestation Final Jet Confirmed By Final Jet Confirmed Date Final Jet Date Ultra Sound Latest Days Gestation 0 0 Menstrual History Last Menstrual Date Menses Monthly On Bcp Conception Prior Menses Frequency Hcg Plus Date Menarche Onset Age Delivery Information Delivery Date Delivery Type Labor Anesthesia Weeks Gestation Incision Type Labor Labor Length Hrs Delivered By Post Complications Tubal Sterilization Discharge Date Comments 5 39 Adlynn Discharge Information Feeding Method Contraceptive Method Maternal HG B and HCT Levels
--- OUTSIDE RECORDS SUMMARY | 2024-12-11 01:12 | XMS_ITS | Encounter Summary ---
Author Organization [facility] Address [address] [place] [address] Care Team Providers Care Valve Repairer Name Role Phone [facility] Primary Care Provider Ele contreras Encounter Details Date Type Department Care Team (Late st Contact Info) Description 01/31/2005 Outpatient Historical [facility] [place] [address] [place] [address] [place] [address] [place] [address] Social History Tobacco Use Types Packs/Day Years Used Date Smoking Tobacco: Never Assessed Comments Unknown Sex and Gender Information Value Date Recorded Sex Assigned at Not on file Legal Sex Female 5:25 AM MILK TREATER Gender Identity Not on file Sexual Orientation Not on file documented as of this encounter Last Filed Vital Signs Vital Sign Reading Time Taken Comments Blood Pressure 106/74 01/31/2005 4:15 PM CDT Pulse - - Temperature - - Respiratory Rate - - Oxygen Saturation - - Inhaled Oxygen Concentration - - Weight 107 kg (236 lb) 01/31/2005 4:15 PM CDT Height - - Body Mass Index 37.8 04/27/2004 10:30 AM MILK TREATER documented in this encounter Plan of Treatment Not on file documented as of this encounter Visit Diagnoses Not on filedocumented in this encounter Care Teams Valve Repairer Relationship Specialty Start Date End Date Demond, External Provider [address] [place] [address] PCP - General 08/09/10 documented as of this encounter
--- OUTSIDE RECORDS SUMMARY | 2024-12-11 01:13 | XMS_ITS | Encounter Summary ---
Author Organization [facility] Address [address] [place] [address] Care Team Providers Care Conveyor Line Bakery Worker Name Role Phone [facility], External Provider Primary Care Provider U ben Encounter Details Date Type Department Care Team (Late st Contact Info) Description 12/13/2006 Outpatient Historical [facility] Maternal and Ground Floor [address] [place] [address] Barry Mcguire MD NO ADDRESS ON FILE Social History Tobacco Use Types Packs/Day Years Used Date Smoking Tobacco: Never Assessed Comments Unknown Sex and Gender Information Value Date Recorded Sex Assigned at Not on file Legal Sex Female 5:25 AM CLINICAL NURSING COORDINATOR Gender Identity Not on file Sexual Orientation Not on file documented as of this encounter Plan of Treatment Not on file documented as of this encounter Visit Diagnoses Not on filedocumented in this encounter Care Teams Conveyor Line Bakery Worker Relationship Specialty Start Date End Date Demond, External Provider [address] [place] [address] PCP - General 08/09/10 documented as of this encounter
--- OUTSIDE RECORDS SUMMARY | 2024-12-11 01:13 | XMS_ITS | Referral Summary ---
Author Organization [facility] [address] [facility] Address [address] [place] [address] Care Team Providers Care Experimental Machinist Name Role Phone Timoteo Sommers MD Primary Care Provider [phone] Arvind Chappell MD Unavailable [phone] Encounters Date Type Department Care Team Description 12/08/2024 Telephone [facility] Pre Anesthesia Testing [address] [place] [address] Sabrina Peterson 11/26/2024 Telephone [facility] [address] [place] [address] Arvind Chappell MD 10/03/2024 10:30 AM CDT Office Visit [facility] [address] [address] Tammy Olivas NP S/P total knee arthroplasty, left (Primary Dx); Primary osteoarthritis of right knee from Last 3 Months Allergies No known active allergies Medications levothyroxine (SYNTHROID) 125 mcg tablet Take 1 tablet (125 mcg total) by mouth environmental director before breakfast Active chlorthalidone (HYGROTON) 25 mg [...] hours as needed for pain 50 tablet Active celecoxib (CeleBREX) 200 mg capsule TAKE 1 CAPSULE(200 MG) BY MOUTH TWICE DAILY 30 capsule 1 Active Active Problems Problem Noted Date Diagnosed Date Primary osteoarthritis of right knee 09/02/2024 S/P total knee arthroplasty, left 08/19/2024 S/P TKR (total knee replacement), left 5 S/P total knee arthroplasty, right 07/08/2024 Primary osteoarthritis of left knee 04/07/2024 Social History Tobacco Use Types Packs/Day Years [...] on file Legal Sex Female 5:56 PM DIRECTOR CLIENT SERVICES Gender Identity Not on file Sexual Orientation Not on file Last Filed Vital Signs Vital Sign Reading Time Taken Comments Blood Pressure 108/68 07/08/2024 3:30 PM DIRECTOR CLIENT SERVICES Pulse 75 07/08/2024 3:10 PM DIRECTOR CLIENT SERVICES Temperature 36.6 C (97.8 F) 07/08/2024 12:34 PM DIRECTOR CLIENT SERVICES Respiratory Rate 14 07/08/2024 3:10 PM DIRECTOR CLIENT SERVICES Oxygen Saturation 98% 07/08/2024 3:10 PM DIRECTOR CLIENT SERVICES Inhaled Oxygen Concentration - - Weight 105.7 kg (233 lb) 10/03/2024 10:34 AM CDT Height 170.2 cm (5' 7) 10/03/2024 10:34 AM CDT Body Mass Index 36.49 10/03/2024 10:34 AM CDT Plan of Treatment Upcoming Encounters Date Type Department Care Team (Latest Contact Info) Description 01/07/2025 7:15 AM CDT Hospital Encounter [facility] Operating Room [address] [place] [address] Arvind Chappell MD [address] [place], [place] [id number] 01/07/2025 7:15 AM CDT - 01/07/2025 10:15 AM CDT Surgery [facility] Operating Room [facility] [place] [address] Arvind Chappell MD [address] [place], [place] [id number] *SDS* Robotic Assisted Right Total Knee Arthroplasty Scheduled Procedures Name Priority Associated Diagnoses Date/Ti me ARTHROPLASTY TOTAL KNEE - S&N CORI Primary osteoarthritis of right knee 01/07/2025 7:15 AM CDT Medical Devices Implanted Type Area Line Builder Device Identifier Shelf Expiration Date Model / Serial / Lot [employer]/Or tho Knee Component Pat Oval 32mm Polyethylene [id number] - [id number] Implanted:Qty: 1 on 07/08/2024 by Arvind Chappell MD at [facility] Left: Knee [employer] r[employer]o [id number] 05/03/2032 [id number] / / [id number] [employer]/Or tho [id number] Insert Tibial Fix Deep [facility] Xlpe Legion Sz 5-6 11mm - [id number] Implanted:Qty: 1 on 07/08/2024 by Arvind Chappell MD at [facility] Left: Knee [employer] r[employer]o [id number] 05/30/2031 [id number] / / [id number] [employer]/Or tho Baseplate Tibial Lt Por W/Jrny Lck K 15 Pork Sz 5 [id number] - [id number] Implanted:Qty: 1 on 07/08/2024 by Arvind Chappell MD at [facility] Left: Knee [employer]o [id number] 05/12/2034 [id number] / / [id number] [employer]/Or tho Legion Cruciate Retain Knee Left 7 Component Femoral King Porous [id number] - [id number] Implanted:Qty: 1 on 07/08/2024 by Arvind Chappell MD at [facility] Left: Knee [employer] r[employer]o [id number] 05/05/2034 [id number] / / [id number] Procedures Procedure Name Priority Date/Time Associated Diagnosis Comments [place] ARTHROCENTESIS ASPIR&/INJ MAJOR JT/BURSA W/O US Routine 10/03/2024 10:30 AM CDT Primary osteoarthritis of right knee from Last 3 Months Results * [place] ARTHROCENTESIS ASPIR&/INJ MAJOR JT/BURSA W/O US (10/03/2024 [...] with no immediate complications us Tammy Olivas TELEVISION PRESENTER IN CLINIC/BEDSIDE ORDER KLEBER Final Result from Last 3 Months Insurance [facility] ACCESS CHOICE [facility] ACCESS CHOICE Care Teams Experimental Machinist Relationship Specialty Start Date End Date Timoteo Sommers MD [address] [place] [address] PCP - General Family Medicine 12/20/23 Arvind Chappell MD [address] [place] [address] Consulting Physician Orthopedic Surgery 07/08/24
--- OUTSIDE RECORDS SUMMARY | 2024-12-11 01:13 | XMS_ITS | Encounter Summary ---
Author Organization [facility] Address [address] [place] [address] Care Team Providers Care Senior Science Consultant Name Role Phone [facility], External Provider Primary Care Provider Ele contreras Encounter Details Date Type Department Care Team (Latest Contact Info) Description 10/10/2006 Outpatient Historical [facility] [place] [address] [place] [address] [place] [address] [place] [address] Other Specified Complication, Antepartum (Primary Dx) Social History Tobacco Use Types Packs/Day Years Used Date Smoking Tobacco: Never Assessed Comments Unknown Sex and Gender Information Value Date Recorded Sex Assigned at Not on file Legal Sex Female 5:25 AM FIRST RESPONDER Gender Identity Not on file Sexual Orientation Not on file documented as of this encounter Last Filed Vital Signs Vital Sign Reading Time Taken Comments Blood Pressure 128/78 10/10/2006 1:00 PM CDT Pulse - - Temperature - - Respiratory Rate - - Oxygen Saturation - - Inhaled Oxygen Concentration - - Weight - - Height - - Body Mass Index - - documented in this encounter Plan of Treatment Not on file documented as of this encounter Procedures Procedure Name Priority Date/Time Associated Diagnosis Comments TSH Routine 10/10/2006 1:35 PM CDT PROGESTERONE Routine 10/10/2006 12:50 PM CDT documented in this encounter Results * (ABNORMAL) TSH (10/10/2006 1:35 PM CDT) TSH 6.23(H) 0.27 - 4.20 uU/mL INTERFACE SYSTEM 10/10/2006 1:35 PM CDT Jarek Nunez MD CHEMISTRY ORDERABLES Edited Performing Organization Address City/[facility] de Phone Number INTERFACE SYSTEM Refer to clinic/hospital department * PROGESTERONE (10/10/2006 12:50 PM CDT) PROGESTERONE 32.8 ng/mL INTERFA CE SYSTEM Comment: Progesterone Reference Range: Female: Normally Menstruating Female Follicular Phase 0.2 - 1.5 ng/mL Ovulation Phase 0.8 - 3.0 ng/mL Luteal Phase 1.7 - 27.0 ng/mL Postmenopausal 0.1 - 0.8 ng/mL No Pediatric Reference Range Available. 10/10/2006 12:5 0 PM CDT Jarek Nunez MD CHEMISTRY ORDERABLES Edited Performing Organization Address [facility] Co md Phone Number INTERFACE SYSTEM Refer to clinic/hospital department documented in this encounter Visit Diagnoses Diagnosis Other specified complication, antepartum(646.83)- Primary Other specified complication, antepartum documented in this encounter Care Teams Senior Science Consultant Relationship Specialty Start Date End Date [facility], External Provider [address] [place] [address] PCP - General 08/09/10 documented as of this encounter
--- OUTSIDE RECORDS SUMMARY | 2024-12-11 01:13 | XMS_ITS | Encounter Summary ---
Author Organization [facility] Address [address] [place] [address] Care Team Providers Care Body And Frame Technician Name Role Phone [facility] Primary Care Provider Ele contreras Encounter Details Date Type Department Care Team (Late st Contact Info) Description 10/10/2006 Outpatient Historical [facility] [place] [address] [place] [address] [place] [address] [place] [address] Social History Tobacco Use Types Packs/Day Years Used Date Smoking Tobacco: Never Assessed Comments Unknown Sex and Gender Information Value Date Recorded Sex Assigned at Not on file Legal Sex Female 5:25 AM COPPER TAPPER Gender Identity Not on file Sexual Orientation Not on file documented as of this encounter Plan of Treatment Not on file documented as of this encounter Visit Diagnoses Not on filedocumented in this encounter Care Teams Body And Frame Technician Relationship Specialty Start Date End Date [facility] [place] [address] PCP - General 08/09/10 documented as of this encounter
--- OUTSIDE RECORDS SUMMARY | 2024-12-11 01:13 | XMS_ITS | Encounter Summary ---
Author Organization [facility] Address [address] [place] [address] Care Team Providers Care Crystal Slicer Name Role Phone [facility] Primary Care Provider Ele contreras Encounter Details Date Type Department Care Team (Late st Contact Info) Description 08/15/2006 Outpatient Historical [facility] Family [place] [address] [place] [address] [place] [address] [place] [address] Social History Tobacco Use Types Packs/Day Years Used Date Smoking Tobacco: Never Assessed Comments Unknown Sex and Gender Information Value Date Recorded Sex Assigned at Not on file Legal Sex Female 5:25 AM IGNITER ASSEMBLER Gender Identity Not on file Sexual Orientation Not on file documented as of this encounter Plan of Treatment Not on file documented as of this encounter Visit Diagnoses Not on filedocumented in this encounter Care Teams Crystal Slicer Relationship Specialty Start Date End Date [facility] [place] [address] PCP - General 08/09/10 documented as of this encounter
--- OUTSIDE RECORDS SUMMARY | 2024-12-11 01:13 | XMS_ITS | Encounter Summary ---
Author Organization [facility] Address [address] [place] [address] Care Team Providers Care Visual Merchandising Manager Name Role Phone [facility] Primary Care Provider Ele contreras Encounter Details Date Type Department Care Team (Late st Contact Info) Description 09/20/2004 Outpatient Historical [facility] [place] [address] [place] [address] [place] [address] [place] [address] Social History Tobacco Use Types Packs/Day Years Used Date Smoking Tobacco: Never Assessed Comments Unknown Sex and Gender Information Value Date Recorded Sex Assigned at Not on file Legal Sex Female 5:25 AM SUPERVISOR PLEATING Gender Identity Not on file Sexual Orientation Not on file documented as of this encounter Plan of Treatment Not on file documented as of this encounter Visit Diagnoses Not on filedocumented in this encounter Care Teams Visual Merchandising Manager Relationship Specialty Start Date End Date [facility] [place] [address] PCP - General 08/09/10 documented as of this encounter
--- OUTSIDE RECORDS SUMMARY | 2024-12-11 01:13 | XMS_ITS | Encounter Summary ---
Author Organization [facility] Address [address] [place] [address] Care Team Providers Care System Planning Engineer Name Role Phone [facility] External Provider Primary Care Provider Ele contreras Encounter Details Date Type Department Care Team (Late st Contact Info) Description 12/24/[address] [facility] [place] [address] [place] [address] [place] [address] [address] [place] [address] Social History Tobacco Use Types Packs/Day Years Used Date Smoking Tobacco: Never Assessed Comments Unknown Sex and Gender Information Value Date Recorded Sex Assigned at Not on file Legal Sex Female 5:25 AM RENT AND MISCELLANEOUS REMITTANCE CLERK Gender Identity Not on file Sexual Orientation Not on file documented as of this encounter Plan of Treatment Not on file documented as of this encounter Visit Diagnoses Not on filedocumented in this encounter Care Teams System Planning Engineer Relationship Specialty Start Date End Date [facility] [place] [address] PCP - General 08/09/10 documented as of this encounter
--- OUTSIDE RECORDS SUMMARY | 2024-12-11 01:13 | XMS_ITS | Encounter Summary ---
Author Organization [facility] Address [address] [place] [address] Care Team Providers Care Molder Shoulder Pad Name Role Phone [facility] Primary Care Provider Ele contreras Encounter Details Date Type Department Care Team (Late st Contact Info) Description 09/20/2004 Outpatient Historical [facility] [place] [address] [place] [address] [place] [address] [place] [address] Social History Tobacco Use Types Packs/Day Years Used Date Smoking Tobacco: Never Assessed Comments Unknown Sex and Gender Information Value Date Recorded Sex Assigned at Not on file Legal Sex Female 5:25 AM DICTATING TRANSCRIBING MACHINE SERVICER Gender Identity Not on file Sexual Orientation Not on file documented as of this encounter Plan of Treatment Not on file documented as of this encounter Visit Diagnoses Not on filedocumented in this encounter Care Teams Molder Shoulder Pad Relationship Specialty Start Date End Date [facility] [place] [address] PCP - General 08/09/10 documented as of this encounter
--- OUTSIDE RECORDS SUMMARY | 2024-12-11 01:13 | XMS_ITS | Encounter Summary ---
Author Organization [facility] Address [address] [place] [address] Care Team Providers Care Vegetable Farmer Name Role Phone [facility] Primary Care Provider Ele contreras Encounter Details Date Type Department Care Team (Late st Contact Info) Description 09/16/2004 Outpatient Historical [facility] [place] [address] [place] [address] [place] [address] [place] [address] Social History Tobacco Use Types Packs/Day Years Used Date Smoking Tobacco: Never Assessed Comments Unknown Sex and Gender Information Value Date Recorded Sex Assigned at Not on file Legal Sex Female 5:25 AM BALANCE STAFF INSPECTOR Gender Identity Not on file Sexual Orientation Not on file documented as of this encounter Plan of Treatment Not on file documented as of this encounter Visit Diagnoses Not on filedocumented in this encounter Care Teams Vegetable Farmer Relationship Specialty Start Date End Date [facility] [place] [address] PCP - General 08/09/10 documented as of this encounter
--- OUTSIDE RECORDS SUMMARY | 2024-12-11 01:13 | XMS_ITS | Encounter Summary ---
Author Organization [facility] Address [address] [place] [address] Care Team Providers Care Termite Treater Helper Name Role Phone [facility] Primary Care Provider Ele contreras Encounter Details Date Type Department Care Team (Late st Contact Info) Description 09/26/2004 Outpatient Historical [facility] [place] [address] [place] [address] [place] [address] [place] [address] Social History Tobacco Use Types Packs/Day Years Used Date Smoking Tobacco: Never Assessed Comments Unknown Sex and Gender Information Value Date Recorded Sex Assigned at Not on file Legal Sex Female 5:25 AM RADAR AIR TRAFFIC CONTROLLER Gender Identity Not on file Sexual Orientation Not on file documented as of this encounter Last Filed Vital Signs Vital Sign Reading Time Taken Comments Blood Pressure 132/80 09/26/2004 4:00 PM CDT Pulse - - Temperature - - Respiratory Rate - - Oxygen Saturation - - Inhaled Oxygen Concentration - - Weight 96.2 kg (212 lb) 09/26/2004 4:00 PM CDT Height - - Body Mass Index 33.96 04/27/2004 10:30 AM RADAR AIR TRAFFIC CONTROLLER documented in this encounter Plan of Treatment Not on file documented as of this encounter Visit Diagnoses Not on filedocumented in this encounter Care Teams Termite Treater Helper Relationship Specialty Start Date End Date Demond, External Provider [address] [place] [address] PCP - General 08/09/10 documented as of this encounter
--- OUTSIDE RECORDS SUMMARY | 2024-12-11 01:13 | XMS_ITS | Encounter Summary ---
Author Organization [facility] Address [address] [place] [address] Care Team Providers Care Audiovisual Lead Technician Name Role Phone [facility] Primary Care Provider Ele contreras Encounter Details Date Type Department Care Team (Late st Contact Info) Description 09/16/2004 Outpatient Historical [facility] [place] [address] [address] [place] [address] [place] [address] [place] [address] Social History Tobacco Use Types Packs/Day Years Used Date Smoking Tobacco: Never Assessed Comments Unknown Sex and Gender Information Value Date Recorded Sex Assigned at Not on file Legal Sex Female 5:25 AM COMMIS CHEF Gender Identity Not on file Sexual Orientation Not on file documented as of this encounter Plan of Treatment Not on file documented as of this encounter Visit Diagnoses Not on filedocumented in this encounter Care Teams Audiovisual Lead Technician Relationship Specialty Start Date End Date [facility], [place] [address] PCP - General 08/09/10 documented as of this encounter
--- OUTSIDE RECORDS SUMMARY | 2024-12-11 01:13 | XMS_ITS | Encounter Summary ---
Author Organization [facility] Address [address] [place] [address] Care Team Providers Care Leather Grainer Name Role Phone [facility] Primary Care Provider Ele contreras Encounter Details Date Type Department Care Team (Late st Contact Info) Description 09/13/2004 Outpatient Historical [facility] [place] [address] [place] [address] [place] [address] [place] [address] Social History Tobacco Use Types Packs/Day Years Used Date Smoking Tobacco: Never Assessed Comments Unknown Sex and Gender Information Value Date Recorded Sex Assigned at Not on file Legal Sex Female 5:25 AM LIGHT ADJUSTER Gender Identity Not on file Sexual Orientation Not on file documented as of this encounter Plan of Treatment Not on file documented as of this encounter Visit Diagnoses Not on filedocumented in this encounter Care Teams Leather Grainer Relationship Specialty Start Date End Date [facility], [place] [address] PCP - General 08/09/10 documented as of this encounter
--- OUTSIDE RECORDS SUMMARY | 2024-12-11 01:13 | XMS_ITS | Encounter Summary ---
Author Organization [facility] Address [address] [place] [address] Care Team Providers Care Nickel Operator Name Role Phone [facility] Primary Care Provider Ele contreras Encounter Details Date Type Department Care Team (Late st Contact Info) Description 09/13/2006 Outpatient Historical [facility] [place] [address] [address] [place] [address] [place] [address] [place] [address] Social History Tobacco Use Types Packs/Day Years Used Date Smoking Tobacco: Never Assessed Comments Unknown Sex and Gender Information Value Date Recorded Sex Assigned at Not on file Legal Sex Female 5:25 AM SOUND TECHNICIAN SUPERVISOR Gender Identity Not on file Sexual Orientation Not on file documented as of this encounter Plan of Treatment Not on file documented as of this encounter Visit Diagnoses Not on filedocumented in this encounter Care Teams Nickel Operator Relationship Specialty Start Date End Date [facility] [place] [address] PCP - General 08/09/10 documented as of this encounter
[2024-12-11 09:07] VITALS: BP 131/85; PULSE 81; RESP 18; TEMP 37.1; O2SAT 97
[2024-12-11] MEDS: LACTATED RINGERS 1,000 ML 150 ML IV CONT (09:17)
--- NOTE | 2024-12-11 09:31 | P.PNAN_ITS ---
Anes - Initial Pre Proc Eval Procedure: Operation Date: 12/11/24 10:30 Proposed Procedures p Screening Colonoscopy - Guanakito Tsang MD Date/Time: 12/11/24 09:31 Surgeon: Guanakito Tsang MD Pre Op Diagnosis: Encounter for screening for malignant neoplasm of Patient Data Age: 54 Gender: F Height: 1.7 m Weight: 104.6 kg Last Vital Signs Temp 98.7 F 12/11/24 09:07 Pulse 81 12/11/24 09:07 Resp 18 12/11/24 09:07 BP 131/85 12/11/24 09:07 Pulse Ox 97 12/11/24 09:07 O2 Del Method Room Air 12/11/24 09:07 Allergies Allergy/AdvReac Type Severity Reaction Status Date / Time No Known Allergies Allergy Unknown Verified 12/11/24 09:05 Home Medications ?Medication ?Instructions ?Recorded ?Confirmed ?Type multivit with minerals-iron 18 1 tablet PO DAILY 10/18/23 12/11/24 History mg-folic ac 400 mcg-vit K 25 mcg tablet (Adults Multivitamin) celecoxib 200 mg capsule See Rx Instructions .Route 10/25/23 12/11/24 Rx .COMPLEX #90 caps chlorthalidone 25 mg tablet See Rx Instructions .Route 12/19/23 12/11/24 Rx .COMPLEX #90 tabs paroxetine HCl 10 mg tablet See Rx Instructions .Route 07/25/24 12/11/24 Rx .COMPLEX #90 tabs cholecalciferol (vitamin D3) 25 25 mcg PO DAILY #100 caps 08/19/24 12/11/24 Rx mcg (1,000 unit) capsule levothyroxine 112 mcg tablet 112 mcg PO DAILY #100 tabs 08/19/24 12/11/24 Rx (Synthroid) losartan 50 mg tablet See Rx Instructions .Route 09/25/24 12/11/24 Rx .COMPLEX #90 tabs estradiol 0.05 mg/24 hr semiweekly 12/11/24 History transdermal patch Patient hx anesthesia problems: none Family hx anesthesia problems: none Results Review: All pre-operative results and documents have been reviewed as part of the pre-operative evaluation. [facility] Past Medical History Medical History Mixed hyperlipidemia Vitamin D deficiency Anxiety and depression Postmenopausal bleeding Ovarian cyst Essential hypertension Osteoarthritis Hypothyroidism Graves' disease in remission reactive iodine treatment 1992 Surgical History Surgical History History of cholecystectomy 11/2017 History of laparoscopy 2002 Family History Family History Mother Breast cancer Endometrial cancer Father Heart disease Bladder cancer Grandparent Acute myocardial infarction Diabetes mellitus Heart disease Social History Social History Smoking status: Never smoker Second hand tobacco smoke exposure: No Alcohol intake: never Substance use: never Substance use type: does not use Do You Feel Safe in your Home?: Yes Lack of Transportation: No Lack of Food: Never True Current Housing: I Have Housing Concerned About Future Housing: No Difficulty Paying Gas/Electric Bills: No Difficulty Paying for Meds: No Currently Unemployed: No Education: Master's Degree or Higher Difficulty w/ Childcare or Family Care: No Living arrangements: with family Occupation/Education: occupation Gender identity (if verbalized by the patient): Female Sexual Orientation (if Verbalized by the Patient): Straight or Heterosexual Spiritual care concerns: No Anes - Eval Final PreProcedure Day of Procedure 12/11/24 09:31 Patient weight: obese Lungs: normal air movement Airway: Mallampati scale class II Neurological: alert and oriented Last oral intake: >/= 8 hours ASA classification: II Emergent: no Anesthetic plan: proceed Anesthesia type and monitoring: general GIVS and standard monitoring Results Review: All pre-operative results and documents have been reviewed as part of the pre- operative evaluation. HTN, hypothryoidism, BMI 36, pt active w riding stationary bike, no cp or sob. Informed Consent: The patient's anesthetic plan and its attendant risks and benefits were discussed with the patient/family/POA. Questions were solicited and answers provided to the satisfaction of the patient/family/POA.
--- NOTE | 2024-12-11 09:31 | PM.IMHP ---
H&P: HPI History of Present Illness Date/Time: 12/11/24 09:31 Chief Complaint: Screening colonoscopy Narrative: This is the patient's first colonoscopy. There are no GI symptoms and there is no family history of colorectal cancer. Review of Systems Review of Systems: All systems reviewed & are unremarkable except as noted in HPI and below PMFSH Past Medical History Medical History Mixed hyperlipidemia Vitamin D deficiency Anxiety and depression Postmenopausal bleeding Ovarian cyst Essential hypertension Osteoarthritis Hypothyroidism Graves' disease in remission reactive iodine treatment 1992 Surgical History Surgical History History of cholecystectomy 11/2017 History of laparoscopy 2002 Family History Family History Mother Breast cancer Endometrial cancer Father Heart disease Bladder cancer Grandparent Acute myocardial infarction Diabetes mellitus Heart disease Social History Social History Smoking status: Never smoker Second hand tobacco smoke exposure: No Alcohol intake: never Substance use: never Substance use type: does not use Do You Feel Safe in your Home?: Yes Lack of Transportation: No Lack of Food: Never True Current Housing: I Have Housing Concerned About Future Housing: No Difficulty Paying Gas/Electric Bills: No Difficulty Paying for Meds: No Currently Unemployed: No Education: Master's Degree or Higher Difficulty w/ Childcare or Family Care: No Living arrangements: with family Occupation/Education: occupation Gender identity (if verbalized by the patient): Female Sexual Orientation (if Verbalized by the Patient): Straight or Heterosexual Spiritual care concerns: No Meds Home Medications and Allergies Home Medications ?Medication ?Instructions ?Recorded ?Confirmed ?Type multivit with minerals-iron 18 1 tablet PO DAILY 10/18/23 12/11/24 History mg-folic ac 400 mcg-vit K 25 mcg tablet (Adults Multivitamin) celecoxib 200 mg capsule See Rx Instructions .Route 10/25/23 12/11/24 Rx .COMPLEX #90 caps chlorthalidone 25 mg tablet See Rx Instructions .Route 12/19/23 12/11/24 Rx .COMPLEX #90 tabs paroxetine HCl 10 mg tablet See Rx Instructions .Route 07/25/24 12/11/24 Rx .COMPLEX #90 tabs cholecalciferol (vitamin D3) 25 25 mcg PO DAILY #100 caps 08/19/24 12/11/24 Rx mcg (1,000 unit) capsule levothyroxine 112 mcg tablet 112 mcg PO DAILY #100 tabs 08/19/24 12/11/24 Rx (Synthroid) losartan 50 mg tablet See Rx Instructions .Route 09/25/24 12/11/24 Rx .COMPLEX #90 tabs estradiol 0.05 mg/24 hr semiweekly 12/11/24 History transdermal patch Allergies Allergy/AdvReac Type Severity Reaction Status Date / Time No Known Allergies Allergy Unknown Verified 12/11/24 09:05 Vital Signs Vital Signs - 24 hr 12/11/24 09:07 Temperature 98.7 F Pulse Rate 81 Respiratory Rate 18 Blood Pressure 131/85 Pulse Oximetry 97 Oxygen Delivery Room Air Exam Const: General: cooperative and healthy appearing Resp: Effort & Inspection: normal respiratory effort and able to speak in complete sentences Auscultation: clear to auscultation bilaterally Cardio: Rate: regular rate Rhythm: regular rhythm GI: Inspection: normal to inspection GI Palp: No No hepatosplenomegaly present Auscultation: normal bowel sounds Rectal Exam: deferred Skin: General skin exam: normal color Psych: Appearance: grossly normal Mental Status: mental status grossly normal Assessment and Plan Assessment and plan (1) Encounter for screening colonoscopy: Code(s): Z12.11 - Encounter for screening for malignant neoplasm of colon Status: Acute Assessment and Plan: This is the patient's first colonoscopy. There are no GI symptoms and there is no family history of colorectal cancer.
[2024-12-11] MEDS: SIMETHICONE ORAL SUSPENSION 20 MG/0.3 ML 30 ML BOTTLE 0.6 ML IRRIGATION (09:50)
[2024-12-11 10:01] VITALS: BP 104/70; PULSE 78; RESP 18; O2SAT 96
[2024-12-11 10:11] VITALS: BP 118/76; PULSE 75; RESP 18; O2SAT 98
[2024-12-11 10:21] VITALS: BP 121/80; PULSE 76; RESP 18; O2SAT 98
== END 2024-12-11 10:29 | disposition home or self-care (01) ==
PROVIDERS: PCP Family Medicine; Visit Provider Internal Medicine Gastroenterology
PROC: 0DJD8ZZ Inspection of Lower Intestinal Tract, Via Natural or Artificial Opening Endoscopic (ICD-10-PCS; CPT 45378; principal; 2024-12-11 10:30)
DX: Z12.11 Encounter for screening for malignant neoplasm of colon (principal); K64.8 Other hemorrhoids; E66.9 Obesity, unspecified; Z68.36 Body mass index [BMI] 36.0-36.9, adult
CPT/HCPCS: 45378; J2003; J2704; J7120